=== PATIENT | male | born 1945 | race Caucasian/White ===

== ENCOUNTER 2020-09-23 15:37 | Emergency (ER) | payer MEDICARE, SELFPAY ==
[2020-09-23 15:43] VITALS: BP 148/78; PULSE 68; RESP 20; TEMP 36.4; O2SAT 99
[2020-09-23 16:17] LABS: Prothrombin Time 51.9 Seconds (11.1-14.7)
--- NOTE | 2020-09-23 16:18 | PC.NURSE ---
Called lab added on CBCD. Talked to Brandon
[2020-09-23 16:22] LABS: Basophils Percent Auto 0.4 % (0.2-1.2); Eosinophils Absolute Auto 0.1 K/mm3 (0-0.3); Eosinophils Percent Auto 1.2 % (0-4.4); Hematocrit 47.7 % (42.0-52.0); Immature Granulocyte Absolute 0.04 K/mm3 (0.00-0.031); Immature Granulocyte Percent A 0.5 % (0-0.5); Lymphocytes Absolute Auto 1.11 K/mm3 (0.9-3.2); Mean Corpuscular HGB Conc 33.5 g/dl (32-36); Mean Corpuscular Hemoglobin 31.1 pg (26-34); Mean Corpuscular Volume 92.8 fl (80-100); Mean Platelet Volume 11.3 fl (7.4-10.4); Monocytes Absolute Auto 0.7 K/mm3 (0.1-0.6); Monocytes Percent Auto 7.9 % (2.6-8.5); Neutrophils Absolute Auto 6.6 K/mm3 (1.3-6.7); Platelet Count Result 173 k/mm3 (150-375); Red Blood Count 5.14 M/mm3 (4.6-6.20); Red Cell Distribution Width 12.8 % (11.5-14.5); White Blood Count 8.5 K/mm3 (4.5-10.0)
[2020-09-23 16:25] LABS: INR 5.8
--- NOTE | 2020-09-23 16:44 | ED.RECABL ---
HPI - Recheck/Abnormal Lab/Rx General Chief Complaint: Recheck/Abnormal Lab/Rx Stated Complaint: Abnormal INR Time Seen by Provider: 09/23/20 15:59 Source: patient Mode of arrival: ambulatory Limitations: no limitations History of Present Illness HPI narrative: 75-year-old male Takes Coumadin for, it turns out, A. fib and is followed by a physician in [place] He had his INR checked as an outpatient a day ago and was notified today that the result was 8 It sounds like his doctor wanted him to take some oral vitamin K but for some reason he could not pick it up from [facility] so he told come to the emergency room He is not having any bleeding at all, apart from when he had his blood drawn Related Data Home Medications Medication Instructions Recorded Confirmed cholestyramine (with sugar) 4 gram PO 05/03/20 05/03/20 oral powder diltiazem HCl 120 mg 120 mg PO DAILY cap 05/03/20 05/03/20 capsule,extended release 12 hr esomeprazole magnesium 40 mg 40 mg PO DAILY 05/03/20 05/03/20 capsule,delayed release famotidine 20 mg tablet 20 mg PO BID tablet 05/03/20 05/03/20 lisinopril 20 1 tablet PO DAILY 05/03/20 05/03/20 mg-hydrochlorothiazide 25 mg tablet metoprolol succinate 100 mg 150 mg PO DAILY tablet 05/03/20 05/03/20 tablet,extended release 24 hr rosuvastatin 20 mg tablet 20 mg PO DAILY 05/03/20 05/03/20 Allergies Allergy/AdvReac Type Severity Reaction Status Date / Time No Known Allergies Allergy Verified 09/23/20 15:47 Review of Systems Constitutional: Constitutional: Denies fatigue and Denies weakness ENT: Denies dizziness Genitourinary: Genitourinary: Denies hematuria Hematologic/Lymphatic: Hematologic/Lymphatic: Reports easy bleeding and Reports easy bruising [facility] Past Medical History Medical History (Updated 09/23/20 @ 16:50 by Yovani Swain MD) Atrial fibrillation Gastroesophageal reflux disease Hyperlipidemia Hypertension Screening for colon cancer Surgical History Surgical History (Updated 05/03/20 @ 10:09 by NELSON Martinez) Hx of cholecystectomy Family History Family History (Updated 05/03/20 @ 12:07 by NELSON Martinez) Father , stroke, diabetes, heart problems Heart disease Social History Social History Smoking status: Former smoker Smoking end date: 04/22/89 Alcohol intake: current Drinks per week: 3 Substance use: never Exam Const: General: cooperative, no acute distress and alert Orientation/consciousness: patient oriented x3 (alert) HENMT: Head: normal to inspection, normocephalic and atraumatic Ears: external ears normal General nose exam: no epistaxis Eyes: Conjunctivae: conjunctivae normal EOM: EOMs intact bilaterally Neck: Neck: normal visual inspection, supple and no JVD Resp: Effort & Inspection: normal respiratory effort and not labored Auscultation: other (BS =) GI: GI Palp: Yes Soft to palpation and No Tenderness to palpation present (GI) Skin: General skin exam: normal color and no rashes or lesions noted Neuro: General: patient oriented x3 (alert) Speech: normal speech Psych: Affect: normal affect Course Vital Signs Vital signs: Vital Signs Temperature 36.4 C 09/23/20 15:43 Pulse Rate 68 09/23/20 15:43 Respiratory Rate 20 09/23/20 15:43 Blood Pressure 148/78 H 09/23/20 15:43 Pulse Oximetry 99 09/23/20 15:43 Temperature 36.4 C 09/23/20 15:43 Pulse Rate 68 09/23/20 15:43 Respiratory Rate 20 09/23/20 15:43 Blood Pressure 148/78 H 09/23/20 15:43 Pulse Oximetry 99 09/23/20 15:43 MDM - Recheck/Abnormal Lab/Rx Lab Data Result diagrams: 09/23/20 15:52 Labs: Lab Results 09/23/20 09/23/20 Range/Units 15:52 15:52 WBC 8.5 (4.5-10.0) K/mm3 RBC 5.14 (4.6-6.20) M/mm3 Hgb 16.0 (14.0-18.0) g/dL Hct 47.7 (42.0-52.0) % MCV 92.8 (80-100) fl MCH 31.1 (26-3
== END 2020-09-23 16:58 | disposition home or self-care (01) ==
PROVIDERS: Emergency Provider Emergency Medicine
DX: R79.1 Abnormal coagulation profile (principal); I48.91 Unspecified atrial fibrillation; Z79.01 Long term (current) use of anticoagulants; K21.9 Gastro-esophageal reflux disease without esophagitis; E78.5 Hyperlipidemia, unspecified; I10 Essential (primary) hypertension; Z87.891 Personal history of nicotine dependence
CPT/HCPCS: 36415; 85025; 85610; 99283

== ENCOUNTER 2021-01-26 19:51 | Emergency (ER) | payer MEDICARE, SELFPAY ==
[2021-01-26] VITALS (10 sets, daily range): BP systolic 141–176; BP diastolic 76–91; PULSE 74–108; RESP 16–20; TEMP 36.1; O2SAT 98–100
--- NOTE | ~2021-01-26 | CT_ITS ---
EXAMINATION: CT brain wo con EXAM DATE: 01/26/2021 21:22 INDICATION: Memory loss, confusion. TECHNIQUE: Spiral CT of the head was performed without contrast. Axial, coronal and sagittal images were reviewed. The dose-length product (DLP) for this examination was 605.33 mGy-cm. The exposure w as tailored according to patient size, and iterative reconstruction (ASIR) was used as additional dos e reduction technique. There is no prior study for comparison. FINDINGS: There is no acute intraparenchymal hemorrhage. No evidence of intraparenchymal brain mass lesion. No evidence of acute infarction. Please note that initial head CT has limited sensitivity f or small or acute infarctions. There is mild periventricular and subcortical hypodensity, nonspecific but probably related to small vessel ischemic disease. There is moderate prominence of the sulci a nd ventricles related to cerebral atrophy. There is intracranial carotid arteriosclerosis. There a re no extra-axial collections. There is no mass effect or midline shift. The orbits are unremarkabl e. Soft tissue is unremarkable. The visualized sinuses and mastoid air cells are well aerated. IMPRESSION: 1. No acute intracranial findings. 2. Chronic age related findings. Reviewed, dictated and finalized at location G.
--- NOTE | ~2021-01-26 | XR_ITS ---
EXAMINATION: XR chest 1V EXAM DATE: 01/26/2021 21:27 INDICATION: Transient alteration of awareness. TECHNIQUE: Frontal and lateral projections of the chest obtained and reviewed. There is no prior piedad dy for comparison. FINDINGS: Moderately enlarged rounded cardiac silhouette which could be cardiomegaly an/or pericardi al effusion. No confluent consolidation, pneumothorax or pleural effusion suspected. There are bony d egenerative changes. There is aortic arteriosclerosis. IMPRESSION: Moderately enlarged cardiac silhouette, cardiomegaly and/or pericardial effusion. Reviewed, dictated and finalized at location G. IMPRESSION: Moderately enlarged cardiac silhouette, cardiomegaly and/or perica rdial effusion.
--- NOTE | 2021-01-26 20:07 | ECG_ITS ---
Measurements Intervals [place] Rate: 100 P: MD: 0 QRS: 1 QRSD: 89 T: 7 QT: 327 QTc: 423 Interpretive Statements ATRIAL FIBRILLATION WITH RAPID VENTRICULAR RESPONSE DELAYED PRECORDIAL R/S TRANSITION BORDERLINE T WAVE ABNORMALITY- INFERIOR LEADS ABNORMAL ECG Electronically Signed On 01-27-2021 6:43:07 CDT by Castillo Guzman D.O.
[2021-01-26 20:40] LABS: Basophils Absolute Auto 0.1 K/mm3 (0.0-0.1); Basophils Percent Auto 0.6 % (0.2-1.2); Eosinophils Absolute Auto 0.1 K/mm3 (0-0.3); Eosinophils Percent Auto 0.7 % (0-4.4); Hematocrit 49.3 % (42.0-52.0); Hemoglobin 16.8 g/dL (14.0-18.0); Immature Granulocyte Absolute 0.02 K/mm3 (0.00-0.031); Immature Granulocyte Percent A 0.2 % (0-0.5); Lymphocytes Absolute Auto 1.29 K/mm3 (0.9-3.2); Lymphocytes Percent Auto 15.9 % (18.3-44.2); Mean Corpuscular HGB Conc 34.1 g/dl (32-36); Mean Corpuscular Hemoglobin 31.8 pg (26-34); Mean Corpuscular Volume 93.4 fl (80-100); Mean Platelet Volume 11.2 fl (7.4-10.4); Monocytes Absolute Auto 0.5 K/mm3 (0.1-0.6); Monocytes Percent Auto 6.7 % (2.6-8.5); Neutrophils Absolute Auto 6.1 K/mm3 (1.3-6.7); Neutrophils Percent Auto 75.9 % (45.5-73.1); Platelet Count Result 190 k/mm3 (150-375); Red Blood Count 5.28 M/mm3 (4.6-6.20); Red Cell Distribution Width 12.8 % (11.5-14.5); White Blood Count 8.1 K/mm3 (4.5-10.0)
[2021-01-26 20:42] LABS: Alanine Aminotransferase 28 U/L (4-50); Albumin Level 4.3 g/dL (3.5-5.1); Alkaline Phosphatase 74 U/L (38-126); Anion Gap 9 mmol/L (8-16); Aspartate Amino Transferase 30 U/L (17-59); Bilirubin,Total 2.8 mg/dL (0.2-1.3); Blood Urea Nitrogen 20 mg/dL (9-20); Calcium 9.3 mg/dL (8.4-10.2); Carbon Dioxide 28 mmol/L (22-30); Chloride 101 mmol/L (98-107); Estimated CRCL calculation 61 ml/min; Estimated Glomerular Filt Rate 54; Glucose 173 mg/dL (65-110); Potassium 3.7 mmol/L (3.4-5.0); Sodium 138 mmol/L (137-145)
[2021-01-26 22:08] LABS: Acetaminophen < 10 ug/mL (10-30); Ammonia 16 umol/L (9-30); Ethanol < 10 mg/dL (<10); Salicylate < 1.0 mg/dL (2-20)
[2021-01-26 22:09] LABS: Add Urine Microscopic? YES; Appearance Urine Clear (Clear); Bilirubin Urine Negative (Negative); Blood Urine Negative (Negative); Color Urine Yellow (Yellow); Glucose Urine UA Negative (Negative); Ketones Urine Negative (Negative); Leukocyte Esterase Ur Negative LEU/UL (Negative); Mucus Urine Rare /lpf; Nitrate Urine Negative (Negative); Protein Urine Negative (Negative); RBC Urine 0-2 /hpf (0-2); Specific Grav Ur 1.014 (1.001-1.035); WBC Urine 0-3 /hpf
--- NOTE | 2021-01-26 22:23 | ED.AMS ---
HPI - Altered Mental Status General Chief Complaint: Altered Mental Status Stated Complaint: confusion, delusional Time Seen by Provider: 01/26/21 20:49 Source: patient History of Present Illness HPI narrative: Patient presents with confusion. Patient has a history of dementia left the house got lost driving around and was pulled over by law enforcement he stated his son was in the trunk. This was a severe amount of confusion for him per the family so was brought to the ER for evaluation. Patient does admit to getting confused periodically and notes that is why he is here at the hospital reports he is feeling well now he denies any focal areas of pain such as chest pain or abdominal pain. Denies any fevers, cough, congestion. Denies any focal weakness or numbness Related Data Home Medications Medication Instructions Recorded Confirmed diltiazem HCl 120 mg 120 mg PO DAILY cap 05/03/20 11/07/20 capsule,extended release 12 hr famotidine 20 mg tablet 20 mg PO BID tablet 05/03/20 11/07/20 lisinopril 20 1 tablet PO DAILY 05/03/20 11/07/20 mg-hydrochlorothiazide 25 mg tablet metoprolol succinate 100 mg 150 mg PO DAILY tablet 05/03/20 11/07/20 tablet,extended release 24 hr rosuvastatin 20 mg tablet 20 mg PO DAILY 05/03/20 11/07/20 colchicine 0.6 mg capsule 0.6 mg PO DAILY 11/07/20 11/07/20 Allergies Allergy/AdvReac Type Severity Reaction Status Date / Time No Known Allergies Allergy Verified 01/26/21 21:17 Review of Systems Review of Systems: CONSTITUTIONAL: Denies fever, chills, or sweats. EYES: Denies visual changes, redness, or discharge. ENT: Denies rhinorrhea, congestion, sore throat, or otalgia. CARDIOVASCULAR: Denies chest pain, palpitations, or edema. RESPIRATORY: Denies cough or dyspnea. GASTROINTESTINAL: Denies abdominal pain, nausea, vomiting, or diarrhea. GENITOURINARY: Denies dysuria or hematuria. SKIN: Denies rash or itching. MUSCULOSKELETAL: Denies back pain, joint pain, or myalgia. NEUROLOGIC: Denies headache, numbness, dizziness, or weakness. PSYCHIATRIC: Denies anxiety or depression. All systems reviewed & are unremarkable except as noted in HPI and below PMFSH Past Medical History Medical History Atrial fibrillation Gastroesophageal reflux disease Hyperlipidemia Hypertension Screening for colon cancer Surgical History Surgical History Hx of cholecystectomy Family History Family History Father , stroke, diabetes, heart problems Heart disease Social History Social History Smoking status: Former smoker Smoking end date: 04/22/89 Alcohol intake: current Drinks per week: 3 Alcohol use details: beer Substance use: never Exam Narrative: GENERAL: Well-appearing, well-nourished, and in no acute distress. HEAD: Normocephalic, atraumatic. EYES: PERRLA and EOMI. ENT: Nares clear, no rhinorrhea or epistaxis. Mucous membranes moist. NECK: Supple. No masses. No JVD CHEST: Clear to auscultation. No respiratory distress. No wheezes rales or rhonchi HEART: Regular rate and rhythm. No murmur heard. Normal peripheral pulses. ABDOMEN: Soft, nontender, nondistended, normal active bowel sounds. EXTREMITIES: Normal range of motion. No edema. SKIN: Warm, dry, no rash. NEURO: Cranial nerves II through XII are intact patient has 5 out of 5 strength in all extremities, sensation intact to light touch in all extremities alert and oriented x3. PSYCH: Normal mood and affect. Course Reevaluation(s) Reevaluation #1: Patient resting comfortably is alert and oriented results and plan reviewed with patient and family. With a negative work-up patient is made line mental status family is comfortable with outpatient monitoring. Family plans to call memory center at
[2021-01-26] MEDS: SODIUM CHLORIDE 0.9% IV 500 ML 999 ML IV CONT (22:51)
== END 2021-01-26 23:33 | disposition home or self-care (01) ==
PROVIDERS: Emergency Medicine; Emergency Provider Emergency Medicine; PCP Internal Medicine
DX: F03.90 Unspecified dementia, unspecified severity, without behavioral disturbance, psychotic disturbance, mood disturbance, and anxiety (principal); F05 Delirium due to known physiological condition; I48.91 Unspecified atrial fibrillation; E78.5 Hyperlipidemia, unspecified; I10 Essential (primary) hypertension; K21.9 Gastro-esophageal reflux disease without esophagitis; Z87.891 Personal history of nicotine dependence; R94.31 Abnormal electrocardiogram [ECG] [EKG]; R91.8 Other nonspecific abnormal finding of lung field; Z79.899 Other long term (current) drug therapy
CPT/HCPCS: 36415; 70450; 71045; 80053; 80307; 81001; 82140; 85025; 93005; 96360; 99284; J7040

== ENCOUNTER 2021-03-15 07:00 | Emergency (ER) | payer MEDICARE, SELFPAY ==
--- NOTE | ~2021-03-15 | XR_ITS ---
EXAMINATION: XR foot RT min 3V EXAM DATE: 03/15/2021 07:40 INDICATION: fall, twisted foot in mole hole, pain radiates whole foot . TECHNIQUE: Right foot dorsoplantar, lateral and oblique projections obtained and reviewed. There is no prior study for comparison. FINDINGS: Right metatarsal bones unremarkable. There is an old 5th proximal phalangeal shaft fractu re. There are no acute fractures or dislocations identified. There is no subcutaneous gas. The soft tissue is unremarkable. There are no radiopaque foreign bodies. There is an inferior calcaneal sp ur. IMPRESSION: 1. Right foot exam without acute osseous findings. Reviewed, dictated and finalized at location A. 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
[2021-03-15 07:18] VITALS: BP 141/71; PULSE 67; RESP 18; TEMP 36.8; O2SAT 100
[2021-03-15 07:28] VITALS: BP 141/71; PULSE 74; RESP 18; TEMP 36.8; O2SAT 100
--- NOTE | 2021-03-15 07:53 | ED.LOWEXIN ---
HPI - Extremity Injury (Lower) General Chief Complaint: Extremity Injury, Lower Stated Complaint: right foot pain, gout? Time Seen by Provider: 03/15/21 07:04 Source: RN notes reviewed History of Present Illness HPI Narrative: Patient presents emergency department from home for right foot pain. Patient states pain began approximately 5 days ago. States that time he had been walking when he twisted his right foot and having pain in the dorsal lateral aspect of the foot since that time he denies falling or any other injury states pain is worse when he walks on the foot better with rest he has been using 1 crutch to help him walk he denies any ankle pain or leg pain states has been taking nothing for the pain states he does have a history of gout Related Data Home Medications Medication Instructions Recorded Confirmed diltiazem HCl 120 mg 120 mg PO DAILY cap 05/03/20 01/30/21 capsule,extended release 12 hr lisinopril 20 1 tablet PO DAILY 05/03/20 01/30/21 mg-hydrochlorothiazide 25 mg tablet metoprolol succinate 100 mg 150 mg PO DAILY tablet 05/03/20 01/30/21 tablet,extended release 24 hr rosuvastatin 20 mg tablet 20 mg PO DAILY 05/03/20 01/30/21 colchicine 0.6 mg capsule 0.6 mg PO DAILY 11/07/20 01/30/21 famotidine 20 mg tablet 40 mg PO ONCE tablet 01/30/21 01/30/21 Allergies Allergy/AdvReac Type Severity Reaction Status Date / Time No Known Allergies Allergy Verified 01/30/21 09:37 Review of Systems Review of Systems: Gen.: Denies fevers or chills Musculoskeletal: See HPI Neuro: Denies numbness, tingling, weakness Skin: Denies rash Endo: Denies DM COUNTS INCLUDE 234 BEDS AT THE [facility] Past Medical History Medical History (Updated 03/15/21 @ 07:56 by Glenn Salmeron DO) Atrial fibrillation Gastroesophageal reflux disease Gout Hyperlipidemia Hypertension Screening for colon cancer Surgical History Surgical History Hx of cholecystectomy Family History Family History Father , stroke, diabetes, heart problems Heart disease Social History Social History Smoking status: Former smoker Smoking end date: 04/22/89 Alcohol intake: current Drinks per week: 3 Alcohol use details: beer Substance use: never Exam Narrative: APPEARANCE: No acute distress, nontoxic, resting in bed Eyes: EOMI HEENT: Normocephalic, atraumatic, RESPIRATORY: No respiratory distress MUSCULOSKELETAl: Tender palpation over dorsal lateral foot in the region of the fourth and fifth metatarsal with mild swelling and ecchymosis present there is no tenderness of the medial or lateral malleolus or the proximal fibula dorsalis pedis pulse 2+ neurovascular intact NEURO: Awake and alert. Following commands, speech normal, no focal deficits SKIN:: Warm, dry. Normal Color no rash or lesions Course Course Emergency Course: Discussed with patient results of workup and diagnosis. Discussed need for follow-up with primary care, proper use of medication, and reasons to return to the emergency department. Patient understands and agrees to current treatment plan Vital Signs Vital signs: Vital Signs Temperature 98.2 F 03/15/21 07:18 Pulse Rate 67 03/15/21 07:18 Respiratory Rate 18 03/15/21 07:18 Blood Pressure 141/71 H 03/15/21 07:18 Pulse Oximetry 100 03/15/21 07:18 Temperature 98.2 F 03/15/21 07:28 Pulse Rate 74 03/15/21 07:28 Respiratory Rate 18 03/15/21 07:28 Blood Pressure 141/71 H 03/15/21 07:28 Pulse Oximetry 100 03/15/21 07:28 MDM - Extremity Injury (Lower) MDM Narrative Medical decision making narrative: Patient with pain over dorsal lateral foot does have a history of gout but at this time feel this more likely related to a foot sprain from him twisting his foot as the pain began after that will place in postop shoe with short cour
[2021-03-15] MEDS: NAPROXEN 250 MG TABLET PO (08:32)
[2021-03-15 08:50] VITALS: BP 150/76; PULSE 81; RESP 16; O2SAT 100
== END 2021-03-15 08:50 | disposition home or self-care (01) ==
PROVIDERS: Emergency Provider Emergency Medicine
DX: S93.601A Unspecified sprain of right foot, initial encounter (principal); I48.91 Unspecified atrial fibrillation; E78.5 Hyperlipidemia, unspecified; I10 Essential (primary) hypertension; K21.9 Gastro-esophageal reflux disease without esophagitis; M10.9 Gout, unspecified; Z87.891 Personal history of nicotine dependence; X50.9XXA Other and unspecified overexertion or strenuous movements or postures, initial encounter
CPT/HCPCS: 73630; 99283; A9270

== ENCOUNTER → 2021-05-18 08:43 | Outpatient (CLI) | payer MEDICARE, SELFPAY ==
[2021-05-18 14:29] LABS: Influenza A QL RT-PCR Negative (Negative); Influenza B QL RT-PCR Negative (Negative); SARS-CoV-2 RNA PCR Negative
== END ==
PROVIDERS: Visit Provider Nurse Practitioner
DX: R09.89 Other specified symptoms and signs involving the circulatory and respiratory systems (principal); Z20.822 Contact with and (suspected) exposure to COVID-19
CPT/HCPCS: 87502; C9803; U0003; U0005

== ENCOUNTER 2021-10-26 09:27 | Emergency (ER) | payer MEDICARE, SELFPAY ==
[2021-10-26] VITALS (11 sets, daily range): BP systolic 132–151; BP diastolic 73–85; PULSE 51–64; RESP 15–18; TEMP 36.8; O2SAT 93–100
--- NOTE | 2021-10-26 09:41 | ED.GENADULT ---
HPI - General Adult General Chief complaint: Recheck/Abnormal Lab/Rx Stated complaint: abnormal lab Time Seen by Provider: 10/26/21 09:36 History of Present Illness HPI narrative: 76-year-old male presents emergency room states he was told to come to the emergency room to have lab rechecked. Patient has been on Coumadin for the past 5 years secondary to chronic atrial fibrillation. He had a PT/INR checked yesterday was noted to be elevated at 8. States he never had that high. He has not had any blood in his stool or urine. He does bleed pretty easily but that is pretty common for him. Denies any other complaints at this time. States he has been taking his medication as prescribed. Related Data Home Medications Medication Instructions Recorded Confirmed diltiazem HCl 120 mg 120 mg PO DAILY 05/03/20 05/31/21 capsule,extended release 12 hr lisinopril 20 1 tablet PO DAILY 05/03/20 05/31/21 mg-hydrochlorothiazide 25 mg tablet metoprolol succinate 100 mg 150 mg PO DAILY 05/03/20 05/31/21 tablet,extended release 24 hr esomeprazole magnesium 40 mg 40 mg PO DAILY 04/04/21 05/31/21 capsule,delayed release rosuvastatin 20 mg tablet 20 mg PO DAILY 04/04/21 05/31/21 warfarin 5 mg tablet 4 mg PO DAILY 04/04/21 05/31/21 Allergies Allergy/AdvReac Type Severity Reaction Status Date / Time No Known Allergies Allergy Verified 05/31/21 14:15 Review of Systems Review of Systems: CONSTITUTIONAL: Denies fever, chills, or sweats. EYES: Denies visual changes, redness, or discharge. ENT: Denies rhinorrhea, congestion, sore throat, or otalgia. CARDIOVASCULAR: Denies chest pain, palpitations, or edema. RESPIRATORY: Denies cough or dyspnea. GASTROINTESTINAL: Denies abdominal pain, nausea, vomiting, or diarrhea. GENITOURINARY: Denies dysuria or hematuria. SKIN: Denies rash or itching. MUSCULOSKELETAL: Denies back pain, joint pain, or myalgia. NEUROLOGIC: Denies headache, numbness, or weakness. PSYCHIATRIC: Denies anxiety or depression. [facility] Past Medical History Medical History Atrial fibrillation Gastroesophageal reflux disease Gout Hyperlipidemia Hypertension Screening for colon cancer Surgical History Surgical History Hx of cholecystectomy Family History Family History Father , stroke, diabetes, heart problems Heart disease Social History Social History Smoking packs per day: 1 Smoking cigarettes per day: 20.0 Years smoked: 14 Smoking pack-years: 14.00 Smoking status: Former smoker Tobacco type: cigarettes Second hand tobacco smoke exposure: No Smoking end date: 04/22/89 Alcohol intake: current Drinks per week: 3 Alcohol use details: beer Substance use: never Substance use type: does not use Exam Narrative: APPEARANCE: Well appearing, no pain or distress, well-nourished. Head normocephalic and atraumatic. EYES: PERRLA/EOMI, conjunctivae very clear. NOSE: Normal with no drainage EARS:TMS clear Debby Giron, with good light reflex. THROAT: Pharynx clear, no exudate. NECK: Supple. No adenopathy, no masses. RESPIRATORY: Airway patent, respirations nonlabored. Clear to auscultation bilaterally, no rales, rhonchi, wheezing. CARDIOVASCULAR: Irregular rhythm with grade 3/6 systolic ejection murmur, rubs, or gallops. ABDOMINAL: Soft, nontender, nondistended, no hepatosplenomegaly Musculoskeletal: Moves all extremities. Strength/ROM intact, No edema, No calf tenderness. NEURO: Alert. Cranial nerves II through XII intact. Normal gait. Good coordination. Nonfocal examination. SKIN:: Warm, dry. Normal Color. Diffuse mild bruising PSYCHIATRIC: Normal affect/mood, normal interaction Course Vital Signs Vital signs: Vital Signs Pulse Rate 64 10/26/21 09:29 Resp
[2021-10-26 10:07] LABS: Basophils Absolute Auto 0.1 K/mm3 (0.0-0.1); Basophils Percent Auto 0.7 % (0.2-1.2); Eosinophils Absolute Auto 0.1 K/mm3 (0-0.3); Eosinophils Percent Auto 0.8 % (0-4.4); Hematocrit 47.5 % (42.0-52.0); Hemoglobin 15.6 g/dL (14.0-18.0); Immature Granulocyte Absolute 0.04 K/mm3 (0.00-0.031); Immature Granulocyte Percent A 0.4 % (0-0.5); Lymphocytes Absolute Auto 1.36 K/mm3 (0.9-3.2); Lymphocytes Percent Auto 13.6 % (18.3-44.2); Mean Corpuscular HGB Conc 32.8 g/dl (32-36); Mean Corpuscular Hemoglobin 30.2 pg (26-34); Mean Corpuscular Volume 92.1 fl (80-100); Mean Platelet Volume 11.5 fl (7.4-10.4); Monocytes Absolute Auto 0.9 K/mm3 (0.1-0.6); Neutrophils Absolute Auto 7.6 K/mm3 (1.3-6.7); Neutrophils Percent Auto 75.5 % (45.5-73.1); Platelet Count Result 200 k/mm3 (150-375); Red Blood Count 5.16 M/mm3 (4.6-6.20)
[2021-10-26 10:11] LABS: Prothrombin Time 61.8 Seconds (11.1-14.7)
[2021-10-26 10:12] LABS: Partial Thromboplastin Time 75.7 SECONDS (22.3-36.8)
[2021-10-26 10:34] LABS: INR 7.5
[2021-10-26] MEDS: PHYTONADIONE 5 MG TABLET PO (11:02)
[2021-10-26 11:05] LABS: Anion Gap 4 mmol/L (8-16); Blood Urea Nitrogen 20 mg/dL (9-20); Calcium 8.7 mg/dL (8.4-10.2); Carbon Dioxide 28 mmol/L (22-30); Chloride 102 mmol/L (98-107); Estimated CRCL calculation 62 ml/min; Estimated Glomerular Filt Rate > 60; Glucose 98 mg/dL (65-110); Potassium 4.1 mmol/L (3.4-5.0); Sodium 134 mmol/L (137-145)
== END 2021-10-26 11:35 | disposition home or self-care (01) ==
PROVIDERS: Emergency Provider Emergency Medicine
DX: I48.20 Chronic atrial fibrillation, unspecified (principal); R79.1 Abnormal coagulation profile; E78.5 Hyperlipidemia, unspecified; I10 Essential (primary) hypertension; M10.9 Gout, unspecified; K21.9 Gastro-esophageal reflux disease without esophagitis; Z87.891 Personal history of nicotine dependence
CPT/HCPCS: 36415; 80048; 85025; 85610; 85730; 99283; A9270

== ENCOUNTER 2022-04-04 17:57 | Emergency (ER) | payer MEDICARE, SELFPAY ==
[2022-04-04 19:28] VITALS: BP 169/97; PULSE 77; RESP 18; TEMP 36.6; O2SAT 100
[2022-04-04 19:50] LABS: Basophils Percent Auto 0.5 % (0.2-1.2); Eosinophils Absolute Auto 0.1 K/mm3 (0-0.3); Eosinophils Percent Auto 1.1 % (0-4.4); Hematocrit 46.8 % (42.0-52.0); Hemoglobin 15.2 g/dL (14.0-18.0); Immature Granulocyte Absolute 0.03 K/mm3 (0.00-0.031); Immature Granulocyte Percent A 0.4 % (0-0.5); Lymphocytes Absolute Auto 1.13 K/mm3 (0.9-3.2); Lymphocytes Percent Auto 15.5 % (18.3-44.2); Mean Corpuscular HGB Conc 32.5 g/dl (32-36); Mean Corpuscular Volume 92.3 fl (80-100); Mean Platelet Volume 11.3 fl (7.4-10.4); Monocytes Absolute Auto 0.6 K/mm3 (0.1-0.6); Monocytes Percent Auto 8.4 % (2.6-8.5); Neutrophils Absolute Auto 5.4 K/mm3 (1.3-6.7); Neutrophils Percent Auto 74.1 % (45.5-73.1); Platelet Count Result 180 k/mm3 (150-375); Red Blood Count 5.07 M/mm3 (4.6-6.20); Red Cell Distribution Width 13.2 % (11.5-14.5); White Blood Count 7.3 K/mm3 (4.5-10.0)
[2022-04-04 20:03] LABS: Alanine Aminotransferase 44 U/L (6-50); Albumin Level 4.1 g/dL (3.5-5.1); Alkaline Phosphatase 97 U/L (38-126); Anion Gap 7 mmol/L (8-16); Aspartate Amino Transferase 39 U/L (17-59); Bilirubin,Total 1.9 mg/dL (0.2-1.3); Blood Urea Nitrogen 18 mg/dL (9-20); Calcium 8.7 mg/dL (8.4-10.2); Carbon Dioxide 23 mmol/L (22-30); Chloride 108 mmol/L (98-107); Estimated CRCL calculation 76 ml/min; Estimated Glomerular Filt Rate > 60; Glucose 110 mg/dL (65-110); Sodium 138 mmol/L (137-145)
[2022-04-04 20:05] LABS: Partial Thromboplastin Time 68.4 SECONDS (22.3-36.8)
[2022-04-04 20:19] LABS: Prothrombin Time 68.4 Seconds (11.1-14.7)
[2022-04-04 20:24] LABS: INR 8.6
--- NOTE | 2022-04-04 22:14 | ED.RECABL ---
HPI - Recheck/Abnormal Lab/Rx General Chief Complaint: Recheck/Abnormal Lab/Rx Stated Complaint: high inr Time Seen by Provider: 04/04/22 21:52 History of Present Illness HPI narrative: This is a 76-year-old male with past medical history of A. fib on Coumadin, referred to the emergency department for an elevated INR. Patient denies any recent injuries, headache, weakness, numbness or change/loss of vision/hearing. He states he takes 5 to 8 mg of Coumadin as needed by his INR. She states he had a recent elevated INR and withheld his Coumadin yesterday. He has no other complaints today. Related Data Home Medications Medication Instructions Recorded Confirmed esomeprazole magnesium 40 mg 40 mg PO DAILY 04/04/21 03/20/22 capsule,delayed release warfarin 5 mg tablet 5 mg PO DAILY 11/02/21 03/20/22 diltiazem HCl 120 mg capsule,24 120 mg PO DAILY 03/23/22 hr,extended release Allergies Allergy/AdvReac Type Severity Reaction Status Date / Time No Known Allergies Allergy Verified 03/20/22 09:14 Review of Systems Review of Systems: CONSTITUTIONAL: Denies fever, chills, or sweats. EYES: Denies visual changes, redness, or discharge. ENT: Denies rhinorrhea, congestion, sore throat, or otalgia. CARDIOVASCULAR: Denies chest pain, palpitations, or edema. RESPIRATORY: Denies cough or dyspnea. GASTROINTESTINAL: Denies abdominal pain, nausea, vomiting, or diarrhea. GENITOURINARY: Denies dysuria or hematuria. SKIN: Denies rash or itching. MUSCULOSKELETAL: Denies back pain, joint pain, or myalgia. NEUROLOGIC: Denies headache, numbness, dizziness, or weakness. PSYCHIATRIC: Denies anxiety or depression. [facility] Past Medical History Medical History Atrial fibrillation Gastroesophageal reflux disease Gout Hyperlipidemia Hypertension Screening for colon cancer Surgical History Surgical History Hx of cholecystectomy Family History Family History Father , stroke, diabetes, heart problems Heart disease Social History Social History Smoking packs per day: 1 Smoking cigarettes per day: 20.0 Years smoked: 14 Smoking pack-years: 14.00 Smoking status: Former smoker Tobacco type: cigarettes Second hand tobacco smoke exposure: No Smoking end date: 04/22/89 Alcohol intake: current Drinks per week: 3 Alcohol use details: beer Substance use: never Substance use type: does not use Lack of Transportation: No Lack of Food: Never True Current Housing: I Have Housing Concerned About Future Housing: No Difficulty Paying Gas/Electric Bills: No Difficulty Paying for Meds: No Currently Unemployed: No Education: Bachelor's Degree Difficulty w/ Childcare or Family Care: No Exam Narrative: GENERAL: Well-developed, well-nourished, and in no acute distress. HEAD: Normocephalic, atraumatic. EYES: PERRLA and EOMI. ENT: Nares clear, no rhinorrhea or epistaxis. Mucous membranes moist. Oropharynx without tonsillar hypertrophy exudate or other lesions. NECK: Supple. No adenopathy or masses. No carotid bruits or JVD CHEST: Clear to auscultation. No respiratory distress. No wheezes rales or rhonchi HEART: Regular rate and rhythm. No murmur heard. Normal peripheral pulses. ABDOMEN: Soft, nontender, nondistended, normal active bowel sounds. EXTREMITIES: Normal range of motion. Bilateral lower extremity edema, 2+ SKIN: Warm, dry, no rash. NEURO: No focal deficits. Alert and oriented x3. PSYCH: Normal mood and affect. Course Course Emergency Course: 22:16 - CBC unremarkable with platelet count within normal limits and hemoglobin of 15.2 which appears to be the patient's baseline. Chemistries remarkable for a total bili of 1.9 but are otherwise unremarkable. [place]
[2022-04-04 22:38] VITALS: BP 145/90; PULSE 60; RESP 18; O2SAT 97
== END 2022-04-04 22:40 | disposition home or self-care (01) ==
PROVIDERS: Emergency Medicine; Emergency Provider Preventive Medicine Aerospace Medicine
DX: R79.1 Abnormal coagulation profile (principal); I48.91 Unspecified atrial fibrillation; I10 Essential (primary) hypertension; E78.5 Hyperlipidemia, unspecified; K21.9 Gastro-esophageal reflux disease without esophagitis; M10.9 Gout, unspecified; Z79.01 Long term (current) use of anticoagulants; Z87.891 Personal history of nicotine dependence
CPT/HCPCS: 36415; 80053; 85025; 85610; 85730; 99283

== ENCOUNTER 2022-04-05 17:43 | Emergency (ER) | payer MEDICARE, SELFPAY ==
--- NOTE | ~2022-04-05 | XR_ITS ---
EXAMINATION: XR chest 1V portable DATE: 04/06/2022 00:57 INDICATION: Cough. TECHNIQUE: A single frontal view of the chest was obtained. COMPARISON: Chest one view 01/26/2021 FINDINGS: There is no pneumonia, pleural effusion, or pneumothorax. Cardiomegaly is noted. IMPRESSION: 1. Cardiomegaly. Reviewed, dictated and finalized at location A. STIGATIONS CHIEF IMPRESSION: 1. Cardiomegaly.
[2022-04-05 18:31] VITALS: BP 175/87; PULSE 68; RESP 18; TEMP 36.4; O2SAT 99
[2022-04-05 22:41] LABS: Basophils Absolute Auto 0.1 K/mm3 (0.0-0.1); Basophils Percent Auto 0.6 % (0.2-1.2); Eosinophils Absolute Auto 0.1 K/mm3 (0-0.3); Eosinophils Percent Auto 1.7 % (0-4.4); Hematocrit 47.3 % (42.0-52.0); Hemoglobin 15.6 g/dL (14.0-18.0); Immature Granulocyte Absolute 0.03 K/mm3 (0.00-0.031); Immature Granulocyte Percent A 0.4 % (0-0.5); Lymphocytes Absolute Auto 1.19 K/mm3 (0.9-3.2); Lymphocytes Percent Auto 15.4 % (18.3-44.2); Mean Corpuscular Hemoglobin 29.8 pg (26-34); Mean Corpuscular Volume 90.3 fl (80-100); Mean Platelet Volume 11.8 fl (7.4-10.4); Monocytes Absolute Auto 0.6 K/mm3 (0.1-0.6); Monocytes Percent Auto 7.2 % (2.6-8.5); Neutrophils Absolute Auto 5.8 K/mm3 (1.3-6.7); Neutrophils Percent Auto 74.7 % (45.5-73.1); Platelet Count Result 188 k/mm3 (150-375); Red Blood Count 5.24 M/mm3 (4.6-6.20); Red Cell Distribution Width 12.9 % (11.5-14.5); White Blood Count 7.7 K/mm3 (4.5-10.0)
[2022-04-05 22:53] LABS: Alanine Aminotransferase 43 U/L (6-50); Alkaline Phosphatase 99 U/L (38-126); Anion Gap 6 mmol/L (8-16); Aspartate Amino Transferase 41 U/L (17-59); Bilirubin,Total 1.9 mg/dL (0.2-1.3); Blood Urea Nitrogen 16 mg/dL (9-20); Calcium 8.7 mg/dL (8.4-10.2); Carbon Dioxide 25 mmol/L (22-30); Chloride 105 mmol/L (98-107); Estimated CRCL calculation 75 ml/min; Estimated Glomerular Filt Rate > 60; Glucose 93 mg/dL (65-110); Potassium 4.3 mmol/L (3.4-5.0); Sodium 136 mmol/L (137-145)
[2022-04-05 23:02] LABS: Troponin I < 0.012 ng/mL (0.000-0.034)
[2022-04-05 23:08] VITALS: BP 161/117; PULSE 88; RESP 16; O2SAT 98
[2022-04-05 23:13] VITALS: O2SAT 97
[2022-04-05 23:15] VITALS: O2SAT 98
[2022-04-05 23:17] VITALS: BP 160/108; PULSE 87; RESP 16; O2SAT 100
[2022-04-05 23:20] VITALS: O2SAT 96
[2022-04-06 00:12] VITALS: O2SAT 100
[2022-04-06 00:26] VITALS: O2SAT 94
[2022-04-06 00:33] VITALS: BP 158/105; PULSE 78; RESP 18; O2SAT 99
[2022-04-06 00:40] LABS: NT Pro B Type Natriuretic Pept 2430 pg/mL (5-100)
--- NOTE | 2022-04-06 00:59 | ED.GENADULT ---
HPI - General Adult General Chief complaint: Skin/Abscess/Foreign Body Stated complaint: was seen last night-legs leaking fluid Time Seen by Provider: 04/05/22 22:52 Source: patient Mode of arrival: ambulatory Limitations: no limitations History of Present Illness HPI narrative: 76-year-old male presents today with complaints of right lower extremity swelling with weeping. Patient seen here yesterday for same complaint with also an elevated INR. Patient denies any chest pain, shortness of breath, falls, or known injuries to the right lower extremity. Patient stated he noticed the swelling about 4 days ago. Related Data Home Medications Medication Instructions Recorded Confirmed esomeprazole magnesium 40 mg 40 mg PO DAILY 04/04/21 03/20/22 capsule,delayed release warfarin 5 mg tablet 5 mg PO DAILY 11/02/21 03/20/22 diltiazem HCl 120 mg capsule,24 120 mg PO DAILY 03/23/22 hr,extended release Allergies Allergy/AdvReac Type Severity Reaction Status Date / Time No Known Allergies Allergy Verified 03/20/22 09:14 Review of Systems Review of Systems: CONSTITUTIONAL: Denies fever, chills, or sweats. EYES: Denies visual changes, redness, or discharge. CARDIOVASCULAR: Denies chest pain, palpitations, or edema. Bilateral lower extremity edema right greater than left with weeping from the right leg. RESPIRATORY: Denies cough or dyspnea. GASTROINTESTINAL: Denies abdominal pain, nausea, vomiting, or diarrhea. SKIN: Abrasions to right leg that are weeping. Denies rash or itching. MUSCULOSKELETAL: Denies back pain, joint pain, or myalgia. [facility] Past Medical History Medical History Atrial fibrillation Gastroesophageal reflux disease Gout Hyperlipidemia Hypertension Screening for colon cancer Surgical History Surgical History Hx of cholecystectomy Family History Family History Father , stroke, diabetes, heart problems Heart disease Social History Social History Smoking packs per day: 1 Smoking cigarettes per day: 20.0 Years smoked: 14 Smoking pack-years: 14.00 Smoking status: Former smoker Tobacco type: cigarettes Second hand tobacco smoke exposure: No Smoking end date: 04/22/89 Alcohol intake: current Drinks per week: 3 Alcohol use details: beer Substance use: never Substance use type: does not use Lack of Transportation: No Lack of Food: Never True Current Housing: I Have Housing Concerned About Future Housing: No Difficulty Paying Gas/Electric Bills: No Difficulty Paying for Meds: No Currently Unemployed: No Education: Bachelor's Degree Difficulty w/ Childcare or Family Care: No Exam Narrative: GENERAL: Well-appearing, well-nourished, and in no acute distress. HEAD: Normocephalic, atraumatic. EYES: PERRLA and EOMI. NECK: Supple. No adenopathy or masses. No carotid bruits or JVD CHEST: Clear to auscultation. No respiratory distress. No wheezes rales or rhonchi HEART: Bilateral lower extremity edema right greater than left. Right +2-3 edema with weeping noted from abrasions to the leg. Left leg +1. Regular rate and rhythm. No murmur heard. Normal peripheral pulses. ABDOMEN: Soft, nontender, nondistended, normal active bowel sounds. SKIN: Warm, dry, no rash. Course Vital Signs Vital signs: Vital Signs Temperature 97.5 F L 04/05/22 18:31 Pulse Rate 68 04/05/22 18:31 Respiratory Rate 18 04/05/22 18:31 Blood Pressure 175/87 H 04/05/22 18:31 Pulse Oximetry 99 04/05/22 18:31 Temperature 97.5 F L 04/05/22 18:31 Pulse Rate 78 04/06/22 00:33 Respiratory Rate 18 04/06/22 00:33 Blood Pressure 158/105 H 04/06/22 00:33 Pulse Oximetry 99 04/06/22 00:33 Medical Decision Making NELI Ruiz
[2022-04-06 02:18] LABS: INR 8.3
[2022-04-06] MEDS: PHYTONADIONE 2.5 MG TAB PO (03:02)
== END 2022-04-06 03:09 | disposition home or self-care (01) ==
PROVIDERS: Family Medicine; Emergency Provider Nurse Practitioner Family
DX: R60.0 Localized edema (principal); R79.1 Abnormal coagulation profile; I48.91 Unspecified atrial fibrillation; I10 Essential (primary) hypertension; E78.5 Hyperlipidemia, unspecified; K21.9 Gastro-esophageal reflux disease without esophagitis; M10.9 Gout, unspecified; Z87.891 Personal history of nicotine dependence; Z79.01 Long term (current) use of anticoagulants
CPT/HCPCS: 36415; 71045; 80053; 83880; 84484; 85025; 85610; 99284; A9270

== ENCOUNTER 2022-04-19 11:56 | Outpatient (CLI) | payer MEDICARE, SELFPAY ==
--- NOTE | ~2022-04-19 | US_ITS ---
EXAMINATION: US venous doppler [facility] DATE: 04/19/2022 13:05 INDICATION: Lower limb swelling TECHNIQUE: Grayscale ultrasound images without and with compression and Doppler ultrasound images of the bilateral lower extremity veins were obtained. COMPARISON: None. FINDINGS: The visualized portions of right common femoral vein, profunda (deep) femoral vein, femoral vein, pop liteal vein, posterior tibial veins, peroneal veins, gastrocnemius vein and greater saphenous vein ou tflow are patent. The visualized portions of left common femoral vein, profunda femoral vein, femoral vein, popliteal v ein, posterior tibial veins, peroneal veins, gastrocnemius vein and greater saphenous vein outflow ar e patent. IMPRESSION: 1. No deep venous thrombosis in either lower limb. Reviewed, dictated and finalized at location A. 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
== END 2022-04-19 11:57 | disposition home or self-care (01) ==
PROVIDERS: PCP Internal Medicine; Visit Provider Internal Medicine
DX: R60.9 Edema, unspecified (principal)
CPT/HCPCS: 93970

== ENCOUNTER → 2023-06-08 08:26 | Outpatient (CLI) | payer MEDICARE, SELFPAY ==
--- NOTE | ~2023-06-08 | MR_ITS ---
MRI of the lumbar spine Clinical History: Spondylolisthesis Technique: Axial T2-weighted images, and sagittal T1-weighted, T2-weighted, and and T2 fat-sat images were acquired. Findings: There is no fracture or subluxation of the lumbar spine. Vertebral bodies maintain normal h eight and alignment. No bone marrow signal abnormality seen. At L1-L2, there is minimal disc bulge and moderate facet arthropathy. No central canal stenosis. Ther e is mild to moderate right neural foraminal narrowing, and minimal left neural foraminal narrowing. At L2-L3, there is mild disc bulge and moderate facet arthropathy. No central canal stenosis. There i s mild bilateral neural foraminal narrowing. At L3-L4, there is diffuse disc bulge and moderate facet arthropathy. No central canal stenosis. Ther e is mild to moderate bilateral neural foraminal narrowing. At L4-L5, there is disc bulge and moderate to advanced facet arthropathy. No central canal stenosis. There is minimal right neural foraminal narrowing. At L5-S1, there is minimal disc bulge and moderate facet arthropathy. No central canal stenosis or ne ural foraminal narrowing. Paravertebral soft tissues are unremarkable. Impression: Mild degenerative spondylosis overall, as detailed above. Reviewed, dictated and finalized at location . TY EXTENSION AGENT Impression: Mild degenerative spondylosis overall, as detailed above.
== END ==
PROVIDERS: PCP Family Medicine Sports Medicine; Visit Provider Nurse Practitioner Family
DX: M43.10 Spondylolisthesis, site unspecified (principal); M47.896 Other spondylosis, lumbar region
CPT/HCPCS: 72148

== ENCOUNTER 2023-10-28 08:33 | Outpatient (CLI) | payer MEDICARE, SELFPAY ==
[2023-10-28 09:10] LABS: Basophils Absolute Auto 0.1 K/mm3 (0.0-0.1); Basophils Percent Auto 0.8 % (0.2-1.2); Eosinophils Absolute Auto 0.1 K/mm3 (0-0.3); Eosinophils Percent Auto 0.8 % (0-4.4); Hematocrit 48.4 % (42.0-52.0); Hemoglobin 15.8 g/dL (14.0-18.0); Immature Granulocyte Absolute 0.05 K/mm3 (0.00-0.031); Immature Granulocyte Percent A 0.6 % (0-0.5); Lymphocytes Absolute Auto 1.27 K/mm3 (0.9-3.2); Lymphocytes Percent Auto 14.8 % (18.3-44.2); Mean Corpuscular HGB Conc 32.6 g/dl (32-36); Mean Corpuscular Hemoglobin 31.2 pg (26-34); Mean Corpuscular Volume 95.7 fl (80-100); Mean Platelet Volume 11.2 fl (7.4-10.4); Monocytes Absolute Auto 0.6 K/mm3 (0.1-0.6); Monocytes Percent Auto 7.3 % (2.6-8.5); Neutrophils Absolute Auto 6.5 K/mm3 (1.3-6.7); Neutrophils Percent Auto 75.7 % (45.5-73.1); Platelet Count Result 197 k/mm3 (150-375); Red Blood Count 5.06 M/mm3 (4.6-6.20); Red Cell Distribution Width 12.5 % (11.5-14.5); White Blood Count 8.6 K/mm3 (4.5-10.0)
[2023-10-28 09:18] LABS: Alanine Aminotransferase 23 U/L (6-50); Albumin Level 4.3 g/dL (3.5-5.1); Alkaline Phosphatase 86 U/L (38-126); Anion Gap 9 mmol/L (4-12); Aspartate Amino Transferase 29 U/L (17-59); Bilirubin,Total 1.9 mg/dL (0.2-1.3); Blood Urea Nitrogen 30 mg/dL (9-20); CRP < 0.5 mg/dL (<1.0); Calcium 9.3 mg/dL (8.4-10.2); Carbon Dioxide 27 mmol/L (22-30); Chloride 101 mmol/L (98-107); Estimated Glomerular Filt Rate 49; Glucose 107 mg/dL (65-110); Sodium 137 mmol/L (137-145)
[2023-10-28 09:24] LABS: Bacteria Urine None Seen /hpf; Non Pathogenic Casts 0-2; RBC Urine 0-2 /hpf (0-2); Squamous Epithelial Cell Urine None Seen /hpf (Few); WBC Urine 0-5 /hpf (0-3)
[2023-10-28 09:34] LABS: Appearance Urine Clear (Clear); Bilirubin Urine Negative (Negative); Blood Urine Negative (Negative); Color Urine Yellow (Yellow); Glucose Urine UA Negative (Negative); Ketones Urine Negative (Negative); Leukocyte Esterase Ur Negative LEU/UL (Negative); Nitrate Urine Negative (Negative); Protein Urine Negative (Negative); Specific Grav Ur 1.006 (1.001-1.035); Urobilinogen Urine 0.2 mg/dL (<2.0); pH Urine 5.5 (5.0-9.0)
[2023-10-28 09:37] LABS: Add Urine Microscopic? NO
[2023-10-28 09:41] LABS: Erythrocyte Sedimentation Rate 5 mm/hr (0-20)
== END 2023-10-28 08:34 | disposition home or self-care (01) ==
PROVIDERS: PCP Family Medicine Sports Medicine; Visit Provider Nurse Practitioner Family
DX: Z01.818 Encounter for other preprocedural examination (principal)
CPT/HCPCS: 36415; 80053; 81003; 85025; 85652; 86140

== ENCOUNTER 2023-11-15 08:14 | Outpatient (CLI) | payer MEDICARE, SELFPAY ==
--- NOTE | ~2023-11-15 | MR_ITS ---
MRI of the thoracic spine Clinical History: Spondylosis Technique: Axial T2-weighted and gradient images, and sagittal T1-weighted, T2-weighted, and STIR anne marie ges were acquired. Findings: There is no acute fracture or subluxation of the thoracic spine. Vertebral bodies maintain normal alignment. No suspicious bone marrow signal reality seen. There is moderate to advanced degenerative disc disease with partial fusion across the disc spaces, e xtending from T6 to T11. No significant disc bulge or herniation identified at any thoracic level. There are scattered areas o f mild facet arthropathy. No spinal canal stenosis or cord compression identified. Neural foramina ap pear preserved. Paravertebral soft tissues are unremarkable. Impression: Misv-le-nvsuasum degenerative spondylosis, as above. Reviewed, dictated and finalized at location M. Impression: [id number] degenerative spondylosis, as above.
== END 2023-11-15 08:15 ==
LOC: GOSHIMG 08:15
PROVIDERS: PCP Family Medicine Sports Medicine; Visit Provider Anesthesiology Pain Medicine
DX: M47.894 Other spondylosis, thoracic region (principal)
CPT/HCPCS: 72146

== ENCOUNTER 2024-05-29 09:58 | Emergency (ER) | payer MEDICARE, SELFPAY ==
--- NOTE | ~2024-05-29 | XR_ITS ---
EXAMINATION: XR foot LT min 3V DATE: 05/29/2024 14:56 INDICATION: Left foot pain. TECHNIQUE: 4 views of left foot were obtained. COMPARISON: None. FINDINGS: Alignment is normal. No fracture. There is mild osteoarthritis of some of the interphalange al joints and midfoot joints. There are enthesophytes at the posterior and plantar aspects of calcane al tuberosity. IMPRESSION: 1. Mild polyarticular osteoarthritis. Reviewed, dictated and finalized at location A. RT ENGINEER
--- NOTE | ~2024-05-29 | XR_ITS ---
EXAMINATION: XR ankle LT min 3V DATE: 05/29/2024 14:56 INDICATION: Left ankle pain. TECHNIQUE: 4 views of left ankle were obtained. COMPARISON: None. FINDINGS: Alignment is normal. No fracture. Joint spaces are normal. There are enthesophytes at the p osterior and plantar aspects of calcaneal tuberosity. IMPRESSION: 1. No fracture. Reviewed, dictated and finalized at location A. SCRIPTER IMPRESSION: 1. No fracture.
[2024-05-29 10:07] VITALS: BP 149/60; PULSE 85; RESP 14; TEMP 36.5; O2SAT 100
--- OUTSIDE RECORDS SUMMARY | 2024-05-29 10:43 | XMS_ITS | Referral Summary ---
Author Organization [facility] Address [address] [place] [address] Care Team Providers Care Rating Officer Name Role Phone Jeremy Delvalle MD Unavailable [phone] Virgilio Degroot MD Unavailable Cesar Sepulveda MD Primary Care Provider Encounters Date Type Department Care Team Description 03/24/2024 9:30 AM ADMINISTRATOR PESTICIDE Office Visit [facility] [address] [place] [address] Blaine Pringle MD Permanent atrial fibrillation (CMS/HCC) (HCC) (Primary Dx); Other thrombophilia (HCC) 03/10/2024 9:15 AM ADMINISTRATOR PESTICIDE Telemedicine [facility] Virtual [facility] [address] [place] [address] Alexandra Snider MD Bilateral leg edema (Primary Dx) 03/09/2024 Nurse Triage [facility] Primary [facility] at [address] [place] [address] Cesar Sepulveda MD from Last 3 Months Allergies Active Allergy Reactions Criticality Noted Date Comments Sieazkd-Rno-Ixf Reductase Inhibitors Other (See comments),Headache Low 12/15/2015 Elevated heart rate. Medications esomeprazole DR (NexIUM) 40 mg capsule TAKE 1 CAPSULE BY MOUTH EVERY OTHER DAY 90 capsule 1 10/04/2023 Active furosemide (LASIX) 20 mg tablet TAKE 1 TABLET(20 MG) BY MOUTH EVERY MORNING 90 tablet 1 01/08/2024 Active apixaban (ELIQUIS) 5 mg tablet Take 1 tablet (5 mg total) by mouth 2 (two) times a day 180 tablet 2 03/24/2024 Active dilTIAZem CD/XR/XT (DILT-XR) 120 mg 24 hr capsule TAKE 1 CAPSULE(120 MG) BY MOUTH EVERY MORNING 90 capsule 04/13/2024 Active ezetimibe (ZETIA) 10 mg tablet TAKE 1 TABLET(10 MG) BY MOUTH DAILY 90 tablet 04/13/2024 Active lisinopriL (PRINIVIL,ZESTR [place]) 10 mg tablet TAKE 1 TABLET(10 MG) BY MOUTH DAILY 90 tablet 04/13/2024 Active allopurinoL (ZYLOPRIM) 100 mg tablet TAKE 1 TABLET(100 MG) BY MOUTH DAILY 90 tablet 04/13/2024 Active metoprolol XL (TOPROL-XL) 100 mg 24 hr tablet TAKE 1 TABLET BY MOUTH EVERY MORNING 90 tablet 1 04/13/2024 Active Active Problems Problem Noted Date Diagnosed Date 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 Senile purpura (CMS/HCC) 01/02/2024 Class 1 obesity due to exces s calories with serious comorbidity and body mass index (BMI) of 34.0 to 34.9 in adult 01/02/2024 Assessment & Plan (01/02/2024 5:58 PM CDT): Chronic. Suboptimally controlled. Encouraged healthy diet, exercise, weight loss History of colon polyps 07/23/2023 Urinary frequency 07/02/2023 Assessment & Plan (07/02/2023 4:49 PM CDT): Some of his nocturnal symptoms have improved with starting tamsulosin. We will continue as it seems to be helping some. Monitor Chronic renal failure, stage 3a 07/02/2023 Assessment & Plan (01/02/2024 5:56 PM CDT): Chronic. Mild. Monitor labs. Avoid dehydration. Avoid NSAIDs. Updated renal function ordered. Okay for cautious increase Lasix for 3 days if swelling worsens but should try to control swelling with diet and lifestyle modifications instead Assessment & Plan (07/02/2023 4:50 PM CDT): Noted on prior labs this past year. We will need to avoid dehydration and use caution with NSAIDs. We will plan to monitor least once yearly or if concerns arise. Atherosclerosis of abdominal aorta 03/08/2023 Assessment & Plan (01/02/2024 5:56 PM CDT): Incidental prior imaging. Continue risk factor modification with Eliquis and ezetimibe Assessment & Plan (07/02/2023 4:46 PM CDT): Incidental prior imaging. Statin intolerant. Continue Zetia for secondary prevention Statin intolerance 12/25/2022 Assessment & Plan (01/02/2024 5:56 PM CDT): On ezetimibe instead. Continue Assessment & Plan (07/02/2023 4:48 PM CDT): Started on ezetimibe in the fall for cholesterol. If unable to achieve appropriate control then we may consider seeing if insurance will cover a PCSK9 inhibitor Nonrheumatic mitral valve regurgitation 08/02/19 23 meterman current use of anticoagulant Assessment & Plan (01/02/2024 5:57 PM CDT): Fatigue he has bleeding does have some issues with easier bruising. Has seeing her and has deferred given his increased bleeding risk with the Eliquis Atrial fibrillation ([facility]) 05/15/2022 Assessment & Plan (01/02/2024 5:54 PM CDT): Chronic. Controlled. Continue diltiazem, metoprolol, and Eliquis. Continue risk factor modification. Assessment & Plan (07/02/2023 4:46 PM CDT): Chronic. Controlled. Continue anticoagulation with Eliquis and diltiazem. HTN (hypertension) 05/15/2022 Assessment & Plan (01/02/2024 5:55 PM CDT): Chronic. Blood pressure well-controlled with current regimen. Continue lisinopril, metoprolol, diltiazem. Monitor Assessment & Plan (07/02/2023 4:47 PM CDT): Chronic. HTN controlled. Cont prescription Rx. Low sodium diet (DASH or Mediterranean), exercise, wt loss (if over weight) discussed Pure hypercholesterolemia 05/15/2022 Assessment & Plan (01/02/2024 5:55 PM CDT): Chronic. Statin intolerant. Tolerates ezetimibe. Continue. Check cholesterol level. Assessment & Plan (07/02/2023 4:47 PM CDT): Chronic. Statin intolerant. Continue Zetia started after last labs. If unable to achieve control with ezetimibe then may need to consider a PCSK9 inhibitor Coronary artery disease invo lving [place] coronary artery of [place] heart without angina pectoris 05/15/2022 Assessment & Plan (01/02/2024 5:55 PM CDT): Chronic. Risk factor modification recommended. Continue ezetimibe given statin intolerance. Preferably targeting an LDL less than 70 if possible. ASA has been deferred given patient is on therapeutic anticoagulation with Eliquis and has easy bruising issues. Assessment & Plan (07/02/2023 4:47 PM CDT): Chronic. Denies chest pain. Continue risk factor modification. Patient is statin intolerant so we are continuing on Zetia. History of gout 05/15/2022 Assessment & Plan (01/02/2024 5:55 PM CDT): No recent flares. Continue allopurinol. Check uric acid Assessment & Plan (07/02/2023 4:48 PM CDT): Chronic. Denies any recent flares. 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 There was a decline in the ability to draw the clock compared to his last visit. CS does not voice any concerns about patient's driving. I recommended CS ride with the patient at least once every two weeks. If she notes any decline, she will reach out to us and we will obtain a formal driving evaluation. We briefly discussed the new anti-amyloid therapies that are currently out as well as testing to see eligibility (biomarkers, APOE, brain MRI). We further discussed the three options for obtaining biomarkers. At this time, patent would like to think about it and will let us know if interested. Information was provided on the [employer] in which he would also like to think about. Follow-up in 6 months or sooner if need be. Assessment & Plan (01/02/2024 5:54 PM CDT): Chronic. Reports memory slightly worsening. Family is helping with all financial matters. Working with the memory clinic as well Assessment & Plan (07/02/2023 4:47 PM CDT): Chronic. Slight memory impairment. Following with Neurology. He is on Exelon and we will continue this for now. History of rectal cancer 04/07/2019 Assessment & Plan (07/02/2023 4:46 PM CDT): Patient is due for follow up with his colorectal surgeon. He last saw 3 years ago. We will refer back to specialists. He will be due for a colonoscopy in potential any additional test per the specialists. Patient and his daughter were given the contact information for his specialist. Currently without any active signs of recurrence Resolved Problems Problem Noted Date Diagnosed Date Resolved Date Encounter for screening colonoscopy 10/12/2019 12/25/2022 Overview (10/12/2019): Added automatically from request for surgery [id number] Rectal tumor 09/02/2018 05/15/2022 Overview (09/02/2018): Added automatically from request for surgery [id number] Thumb pain, left 05/15/2018 05/15/2022 Immunizations Name Administration Dates Next Due Influenza, Quadrivalent, Hig h Dose, Preservative Free, Intrr 01/04/2020 Influenza, Quadrivalent, Spl it, Preservative Free, Intramuscular 01/24/2015,01/27/2014,01/20/2014 Influenza, Trivalent, High D ose, Split, Preservative Free, Intramuscular 01/02/2019,02/04/2018,01/14/2017,01/31 Pneumococcal Conjugate PCV 13 12/06/2015, 015 Pneumococcal Polysaccharide PPV23 02/01/2012 TD Preservative Free 10/19/2016 ZOSTER LIVE 01/14/2013 Social History Tobacco Use Types Packs/Day Years Used Date Smoking Tobacco: Former Cigarettes 1 34 0 04/22/1964 - 04/22/1998 Smokeless Tobacco: Never Tobacco Cessation:Counseling Given: Not Answered Alcohol Use Standard Drinks/Week Comments Yes 6 (1 standard drink = 0.6 oz pur e alcohol) AUDIT-C Answer Date Recorded Q1: How often do you have a drink containing alc ohol? 2-3 times a week 01/02/2024 Q2: How many drinks containi ng alcohol do you have on a typical day when you are drinking? 1 or 2 01/02/2024 Q3: How often do you have si x or more drinks on one occasion? Never 01/02/2024 PHQ-2 Answer Date Recorded PHQ-2 Total Score (If total score is 3 or more points, staff should administer the PHQ-9) 0 01/02/2024 Personal Safety Answer Date Recorded Have you ever been in or are you currently in a harmful physical or emotional relationship or is someone making you feel afraid or unsafe? 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 Not on file Not on file Last Filed Vital Signs Vital Sign Reading Time Taken Comments Blood Pressure 120/70 03/24/2024 9:39 AM ADMINISTRATOR PESTICIDE Pulse 78 03/24/2024 9:39 AM ADMINISTRATOR PESTICIDE Temperature 36.6 C (97.8 F) 01/21/2024 8:21 AM CDT Respiratory Rate 18 02/25/2024 2:11 PM ADMINISTRATOR PESTICIDE Oxygen Saturation 97% 03/24/2024 9:39 AM ADMINISTRATOR PESTICIDE Inhaled Oxygen Concentration - - Weight 108.8 kg (239 lb 14.4 oz) 03/24/2024 9:39 AM ADMINISTRATOR PESTICIDE Height 177.8 cm (5' 10 ) 03/24/2024 9:39 AM ADMINISTRATOR PESTICIDE Body Mass Index 34.42 03/24/2024 9:39 AM ADMINISTRATOR PESTICIDE Plan of Treatment Not on file Procedures Procedure Name Priority Date/Time Associated Diagnosis Comments COLONOSCOPY 10/18/2023 6:53 AM CDT HEPATITIS C ANTIBODY Routine 12/25/2022 8:30 AM CDT Primary hypertension Encounter for hepatitis C screening test for low risk patient from Last 3 Months or Most Recently Relevant to Health Maintenance Results * Colonoscopy (10/18/2023 6:53 AM CDT) Anatomical Region Laterality Modality Other Narrative Procedure Note Jeremy Delvalle MD - 10/18/2023 6:53 AM CDT [facility] Patient Name: Reynold Godinez Procedure Date: 10/18/2023 6:53 AM Date of : 1945 Admit Type: Outpatient Age: 78 Gender: Male Attending MD: Jeremy Delvalle M.D. Room: [facility] ENDOSCOPY ROOM 02 Note Status: Finalized Procedure: Colonoscopy Indications: Personal history of malignant rectal neoplasm, Personal history of colonic polyps Referring MD: Sarah Kimble M.D. Providers: Jeremy Delvalle M.D. Medicines: Propofol per Anesthesia Complications: No immediate complications. Estimated Blood Loss: Estimated blood loss: none. Procedure: Pre-Anesthesia Assessment: - After reviewing the risks and benefits, thepatient was deemed in satisfactory condition to undergo the procedure. - Immediately prior to administration ofmedications, the patient was re-assessed for adequacy to receive sedatives. The benefits, risks and alternatives of theprocedure and sedation were discussed and informed consentwas obtained. All questions were answered. Please referto the signed informed consent document in the medical record. The scope was passed under direct vision.The [id number] Colonoscope was introducedthrough the anus and advanced to the the cecum, identifiedby appendiceal orifice and ileocecal valve. The colonoscopy was performed without difficulty. The patient tolerated the procedure well. The qualityof the bowel preparation was good. The bowelpreparation used was SUPREP. Findings: The site of the previous rectal cancer was palpated and was soft withno nodules. There is no evidence of residual or recurrent disease. Two sessile polyps were found in the ascending colon. The polyps were2 to 3 mm in size. These polyps were removed with a hot biopsy forceps. Resection and retrieval were complete. A 6 mm polyp was found in the ascending colon. The polyp was sessile. The polyp was removed with a hot snare. Resection and retrieval were complete. A 4 mm polyp was found in the descending colon. The polyp wassessile. The polyp was removed with a hot biopsy forceps. Resection andretrieval were complete. A 2 mm polyp was found in the rectum. The polyp was sessile. Thepolyp was removed with a hot biopsy forceps. Resection and retrieval were complete. A scar was found in the distal rectum. There was no evidence of the previous polyp. Impression: - Two 2 to 3 mm polyps in the ascending colon,removed with a hot biopsy forceps. Resected andretrieved. - One 6 mm polyp in the ascending colon, removedwith a hot snare. Resected and retrieved. - One 4 mm polyp in the descending colon, removedwith a hot biopsy forceps. Resected and retrieved. - One 2 mm polyp in the rectum, removed with a hot biopsy forceps. Resected and retrieved. - Scar in the distal rectum. Recommendation: - Await pathology results. - Repeat colonoscopy in 3 years for surveillance. Electronically signed by Shon Delvalle Jeremy Delvalle M.D. 10/18/2023 7:59:35 AM Number of Addenda: 0 Note Initiated On: 10/18/2023 6:53 AM Recognized by the [employer] for promoting quality in endoscopy Jeremy Delvalle MD ENDOSCOPY PROCEDURES Final Res ult * Hepatitis C antibody Blood (12/25/2022 8:30 AM CDT) Hep C Ab Nonreactive Nonreactive Comment: Interpretive Data Nonreactive: Antibodies to HCV not detected. Does NOT exclude the possibility of recent exposure to HCV. Equivocal: Equivocal for HCV antibodies. Supplemental molecular testing will be automatically performed to determine infection status in accordance with current CDC screening recommendations. Reactive: Positive for HCV antibodies. This may represent current or past HCV infection. Supplemental molecular testing will be automatically performed to determine current infection status in accordance with current CDC screening recommendations. Interpretive data was last revised on 2019. Blood 12/25/2022 8:30 AM CDT 12/25/2022 5:53 PM CDT Sarah Kimble MD LAB MICROBIOLOGY - GEN ERAL ORDERABLES Final Result [facility] [id number] [employer] [place] [address] from Last 3 Months or Most Recently Relevant to Health Maintenance [place] [address] [place] [address] [employer] [address] [place] [address] [employer] MED[employer]ARE [address] [place] [address] Advance Directives For more information, please contact: [phone] * Full Code (Latest Code Status on File) Date Activated Date Inactivated Comments 10/18/2023 6:55 AM 10/18/2023 12:51 PM * Full Code Date Activated Date Inactivated Comments 07/08/2020 9:09 AM 07/08/2020 4:13 PM * Full Code Date Activated Date Inactivated Comments 01/11/2020 9:39 AM 01/11/2020 4:20 PM * Full Code Date Activated Date Inactivated Comments 09/11/2018 1:49 PM 09/12/2018 6:23 PM Care Teams Rating Officer Relationship Specialty Start Date End Date Cesar Sepulveda MD [address] [place] [address] [address] [place] [address] PCP - General Family Medicine 02/25/24 Jeremy Delvalle MD Surgeon Colon and Rectal Surgery 04/07/19 Virgilio Degroot MD [address] [facility] [address] [place] [address] Workforce Development Vice President Gastroenterology 09/24/19
--- OUTSIDE RECORDS SUMMARY | 2024-05-29 10:43 | XMS_ITS | Clinical Summary ---
Author Organization [facility] Address [address] [place] [address] Care Team Providers Care Veneer Jointer Returner Name Role Phone Wm Berger DO Primary Care Provider [phone] Allergies Active Allergy Reactions Criticality Noted Date Comments Statins Myalgias 12/15/2015 Medications diltiazem 24 hr (CARDIZEM CD) 120 MG capsule Take 1 tablet by mouth daily. 10/26/2009 Active Altair-3 Fatty Acids (FISH OIL CONCENTRATE) 300 MG Cap Take 1 tablet by mouth every other day. 06/06/2012 Active metoprolol succinate 100 MG 24 hr tablet Take 1.5 tablets by mouth daily. 10/26/2009 Active esomeprazole (NEXIUM) 40 MG capsule Take 40 mg by mouth every morning before breakfast. 08/11/2008 Active lisinopril-hydr ochlorothiazide 20-25 MG per tablet Take 1 tablet by mouth daily. 09/22/2015 Active Coenzyme Q10 (CO Q 10 OR) Take 1 capsule by mouth daily as needed. Active rosuvastatin 20 MG tablet Take 10 mg by mouth 3 (three) times a week. Take half tablet by mouth on Saturday, Saturday, Saturday Active Misc Natural Products (OSTEO BI-FLEX JOINT SHIELD OR) Take 1 tablet by mouth daily. Active Lactobacillus Acid-Pectin (ACIDOPHILUS/CI TRUS PECTIN) Tab Take 1 tablet by mouth daily as needed. Active WARFARIN SODIUM OR Take 1 tablet by mouth daily. 07/25/2017 Active colchicine 0.6 MG tablet as needed. 05/20/2017 Active Active Problems Problem Noted Date Diagnosed Date History of rectal cancer 04/07/2019 Rectal tumor 09/02/2018 Overview (05/22/2020): Overview: Added automatically from request for surgery [id number] HTN (hypertension) HLD (hyperlipidemia) Atrial fibrillation (CMS/HCC HHS/HCC) Family History Medical History Relation Comments Hypertension Brother Diabetes Father Heart Father Stroke Father Arthritis Mother Dementia Mother Hypertension Mother Diabetes Other Hypertension Other Lung Cancer Sister Relation Status Comments Brother Father Mother Other Sister Alive Social History Tobacco Use Types Packs/Day Years Used Date Smoking Tobacco: Former Cigarettes Q uit: 1986 Smokeless Tobacco: Former Quit: 1986 Alcohol Use Standard Drinks/Week Comments Yes 5 (1 standard drink = 0.6 oz pur e alcohol) daily Sex and Gender Information Value Date Recorded Sex Assigned at Not on file Legal Sex Male 9:05 PM CDT Gender Identity Not on file Sexual Orientation Not on file Occupation Industry Job Start Date Job End Date Retired Not on file Not on file Not on file Last Filed Vital Signs Vital Sign Reading Time Taken Comments Blood Pressure 150/82 05/23/2020 9:05 AM DEICER REPAIRER Pulse 75 05/23/2020 9:05 AM DEICER REPAIRER Temperature 36.6 C (97.8 F) 09/21/2019 1:24 PM CDT Respiratory Rate 20 07/25/2019 10:24 AM CDT Oxygen Saturation 98% 05/23/2020 9:05 AM DEICER REPAIRER Inhaled Oxygen Concentration - - Weight 106.1 kg (234 lb) 05/23/2020 9:05 AM DEICER REPAIRER Height 177.8 cm (5' 10 ) 05/23/2020 9:05 AM DEICER REPAIRER Body Mass Index 33.58 05/23/2020 9:05 AM DEICER REPAIRER Plan of Treatment Health Maintenance Due Date Last Done Comments PHQ-2 (Physician Soboba) 1957 Hepatitis C 1963 Annual Medicare Wellness Visit 07/17/2011 Zoster Vaccines (2 of 3) 03/11/2013 01/14/2013 DTaP, Tdap and Td Vaccines (1 - Tdap) 10/20/2016 10/19/2016 RSV Immunization or 60+ Years (1 - 1-dose 75+ series) 2021 COVID-19 Vaccine (1 - season) 2023 Influenza Adult (#1) 2024 01/04/2020, 01/02/2019, 02/04/2018, Additional history exists PHQ-2 (Physician [place]oba) 04/22/2024 Pneumococcal Vaccine: 65+ Years Completed 12/06/2015, 03/21/2015, 02/01/2012 AAA SCREENING Completed 02/05/2019 Colorectal Cancer Screening Colonoscopy (10 Years) Discontinued 10/18/2023 Meningococcal B Vaccine Aged Out No l onger eligible based on patient's age to complete this topic Meningococcal Vaccine Aged Out No tino scar eligible based on patient's age to complete this topic RSV Immunizations Under 20 Months Aged Out No longer eligible based on patient's age to complete this topic Procedures Procedure Name Priority Date/Time Associated Diagnosis Comments COLONOSCOPY GENERIC (SCAN ORDER) 10/18/2023 CT ABD+PEL W CON STAT 02/05/2019 10:2 2 AM CDT RLQ abdominal pain from Last 3 Months or Most Recently Relevant to Health Maintenance Results * COLONOSCOPY GENERIC (SCAN ORDER) (10/18/2023) 10/18/2023 [facility] Scanned SCANNING Final Resu lt * CT ABD+PEL W CON (02/05/2019 10:22 AM CDT) Anatomical Region Laterality Modality Abdomen Computed Tomogra phy 02/05/2019 10:2 9 AM CDT Impressions 02/05/2019 10:31 AM CDT IMPRESSION: 1. No acute findings. No findings to explain the patient's symptoms Interpreted By: Júnior Broderick MD, 02/05/2019 10:29 AM Narrative 02/05/2019 10:[address] ABDOMEN AND PELVIS WITH CONTRAST Exam date:02/05/2019 10:13 AM Clinical history: Right lower quadrant pain. Technique: Dynamic helical images of the abdomen and pelvis were obtained. The patient received 100 mL of Isovue 370 nonionic intravenous contrast through an IV in the right antecubital fossa. A dose lowering technique was used for this procedure, which may include, but is not limited to, dose reduction technique, automated exposure control, the use of iterative reconstruction, and ALARA (As Low As Reasonably Achievable) / Image Gently techniques. Comparison: January 01, 2015. FINDINGS: Images of the lower thorax demonstrate the visualized portion of the heart to appear normal. The lung bases are clear. Images of the abdomen demonstrate the overall size and morphology of the liver to be within normal limits. No hepatic lesions are observed. No ascites is seen. The gallbladder is surgically absent. The pancreas is mildly atrophic. 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 The adrenal glands appear normal. The kidneys are normal in size bilaterally. There is normal symmetric enhancement after the administration of contrast. No stones or hydronephrosis is apparent. Both ureters follow normal expected course through the retroperitoneum. Images of the pelvis demonstrate the urinary bladder to appear normal. The prostate is moderately enlarged. Stomach and small bowel have a normal appearance throughout. The terminal ileum and appendix appear normal. Overall, the colon has a normal appearance. No adenopathy or abnormal fluid collections are seen within the abdomen or pelvis Procedure Note Júnior Broderick MD - 02/05/2019 CT ABDOMEN AND PELVIS WITH CONTRAST Exam date:02/05/2019 10:13 AM Clinical history: Right lower quadrant pain. Technique: Dynamic helical images of the abdomen and pelvis wereobtained. The patient received 100 mL of Isovue 370 nonionic intravenous contrast through an IV in the right antecubital fossa. A dose lowering techniquewas used for this procedure, which may include, but is not limited to, dose reduction technique, automated exposure control, the use of iterative reconstruction, and ALARA (As Low As Reasonably Achievable) / ImageGently techniques. Comparison: January 01, 2015. FINDINGS: Images of the lower thorax demonstrate the visualized portion of theheart to appear normal. The lung bases are clear. Images of the abdomen demonstrate the overall size and morphology of the liver to be within normal limits. No hepatic lesions are observed. No ascites is seen. The gallbladder is surgically absent. The pancreas is mildly atrophic. Old granulomatous disease is noted throughout thespleen. The adrenal glands appear normal. The kidneys are normal in size bilaterally. There is normal symmetric enhancement after theadministration of contrast. No stones or hydronephrosis is apparent. Both uretersfollow normal expected course through the retroperitoneum. Images of the pelvis demonstrate the urinary bladder to appear normal.The prostate is moderately enlarged. Stomach and small bowel have a normal appearance throughout. Theterminal ileum and appendix appear normal. Overall, the colon has a normal appearance. No adenopathy or abnormal fluid collections are seen withinthe abdomen or pelvis IMPRESSION: 1. No acute findings. No findings to explain the patient's symptoms Interpreted By: Júnior Broderick MD, 02/05/2019 10:29 AM Maday Brandt APRN CT Final Result from Last 3 Months or Most Recently Relevant to Health Maintenance Insurance MED REPLACE [facility] MEDICARE MED REPLACE [facility] MEDICARE Advance Directives Documents on File Type Date Recorded Patient Press Operator Assistant Expl anation Advance Directives and Living Will 07/25/2016 9:11 AM POA (H) WITH ADVANCE DIRECTIVE Advance Directives and Living Will 06/26/2012 12:00 AM POWER OF ERP PROJECT MANAGER FO R HEALTH CARE Advance Directives and Living Will 06/26/2012 12:00 AM POWER OF ERP PROJECT MANAGER FO R HEALTH CARE Care Teams Veneer Jointer Returner Relationship Specialty Start Date End Date Wm Berger DO [address] [id number] PCP - General INTERNAL MEDICINE 05/23/20
--- OUTSIDE RECORDS SUMMARY | 2024-05-29 10:43 | XMS_ITS | Encounter Summary ---
Author Organization [facility] Address [facility]ly [facility] [place] [address] Care Team Providers Care Diving Judge Name Role Phone Chester Broussard MD Primary Care Provider [phone] Chester Eli MD Unavailable [phone] Johanny Chang NP Unavailable [phone] Evy Rivera MD Unavailable [phone] Wm Berger DO Primary Care Provider [phone] Encounter Details Date Type Department Care Team (Late st Contact Info) Description 09/27/[address] [facility] Conversion [address] [place] [address] , Generic Conversion, Social History Tobacco Use Types Packs/Day Years [...] file Not on file Not on file documented as of this encounter Plan of Treatment Not on file documented as of this encounter Visit Diagnoses Not on filedocumented in this encounter Care Teams Diving Judge Relationship Specialty Start Date End Date Chester Broussard MD [address] [place] [address] PCP - General FAMILY PRACTICE 12/15/15 05/22/20 Wm Berger DO [address] [facility] [address] [place] [address] PCP - General INTERNAL MEDICINE 05/23/20 Chester Eli MD [address] [place] [address] CARDIOVASCULAR DISEASE 12/15/15 1 Johanny Chang NP [address] [place] [address] Nurse Practitioner NURSE PRACTITIONER 11/05/17 05/22/20 Evy Rivera MD [address] [place] [address] [address] [place] [address] Consulting Physician CARDIOVASCULAR DISEASE 02/24/19 documented as of this encounter
--- OUTSIDE RECORDS SUMMARY | 2024-05-29 10:43 | XMS_ITS | Encounter Summary ---
Author Organization [facility] Address [facility] [place] [address] Care Team Providers Care Geospatial Information Technologist Name Role Phone Chester Broussard MD Primary Care Provider [phone] Chester Eli MD Unavailable [phone] Johanny Chang NP Unavailable [phone] Evy Rivera MD Unavailable + [phone] Wm Berger DO Primary Care Provider [phone] Encounter Details Date Type Department Care Team (Late st Contact Info) Description 12/15/2015 Abstract [facility] [address] [place] [address] Zaria Vidales RN Social History Tobacco Use Types Packs/Day Years Used Date Smoking Tobacco: Former Cigarettes Q uit: 1986 Sex and Gender Information Value Date Recorded [...] on filedocumented in this encounter Care Teams Geospatial Information Technologist Relationship Specialty Start Date End Date Chester Broussard MD [address] [place] [address] PCP - General FAMILY PRACTICE 12/15/15 05/22/20 Wm Berger DO [address] [facility] [address] [place] [address] PCP - General INTERNAL MEDICINE 05/23/20 Chester Eli MD [address] [place] [address] CARDIOVASCULAR DISEASE 12/15/15 1 Johanny Chang NP [address] [place] [address] Nurse Practitioner NURSE PRACTITIONER 11/05/17 05/22/20 Evy Rivera MD [address] [facility] [address] [place] [address] Consulting Physician CARDIOVASCULAR DISEASE 02/24/19 documented as of this encounter
--- OUTSIDE RECORDS SUMMARY | 2024-05-29 10:43 | XMS_ITS | Continuity of Care Document ---
Author Organization [facility] Address [address] [place] [address] Phone Care Team Providers Care Machine Strap Buckler Name Role Phone Parrish RAMIREZ, Randall Unavailable Unavaila ble Procedures Procedure Date OFFICE/OUTPATIENT VISIT, EST EYE EXAM, NEW PATIENT Advance Directives Directive Yes / No Effective Date File Name No Information Encounters Encounter Description Practice Location Reason(s) For Visit Diagnoses Date Provider Providers Copied on Encounter OFFICE/OUTPAT IENT VISIT, [facility], [address] [place] [address], [id number], tel:[phone] [facility] No Information 7 Parrish Pereira. [address], [address], [place], [place], [id number], . tel:[phone] Referring Provider: Randall everett, [address] [place] [address], [id number]. tel:[phone] [facility], [address] [place] [address], [id number], tel:[phone] [facility] No Information 7 Parrish Mol. [address], [address] [place] [address], [id number], . tel:[phone] Referring Provider: Randall everett, [address] [place] [address], [id number]. tel:[phone] Family History Family Member Type Diagnosis Age At Onset No Information Payers Payer name Insurance type Covered democrat ID Authoriza tion(s) No Information Social History Type Description Quantity Date Captured Comments Sex Male Smoking Status No Information Chief Complaint And Reason For Visit No Information Plan Of Treatment Date Type Action Status No Information History Of Present Illness Encounter Date Complaint History Of Prese nt Illness No Information Instructions Date Instruction Additional Infor mation No Information Assessments Type Assessment Date No Information
--- OUTSIDE RECORDS SUMMARY | 2024-05-29 10:43 | XMS_ITS | Clinical Summary ---
Author Organization [facility] Address [address] [place] [address] Care Team Providers Care Tool And Die Supervisor Name Role Phone Jeremy Delvalle MD Unavailable [phone] Virgilio Degroot MD Unavailable Cesar Sepulveda MD Primary Care Provider Allergies Active Allergy Reactions Criticality Noted Date Comments Oqxaokw-Pnv-Jbw Reductase Inhibitors Other (See comments),Headache Low 12/15/2015 [...] inhibitor Nonrheumatic mitral valve regurgitation 08/02/19 23 detention current use of anticoagulant Assessment & Plan (01/02/2024 5:57 PM CDT): Fatigue he has bleeding does have some issues with easier bruising. Has seeing her and has deferred given his increased bleeding risk with the Eliquis Atrial fibrillation ([facility]) 05/15/2022 Assessment & Plan (01/02/2024 5:54 PM [...] PCSK9 inhibitor Coronary artery disease invo lving kobuk coronary artery of k[place] heart without angina pectoris 05/15/2022 Assessment & [...] if interested. Information was provided on the [employer] in which he would also like [...] (10/12/2019): Added automatically from request for surgery [id number] Rectal tumor 09/02/2018 05/15/2022 Overview (09/02/2018): Added automatically from request for surgery [id number] Thumb pain, left 05/15/2018 05/15/2022 Encounters Date Type Department Care Team Description 03/24/2024 9:30 AM MAJOR APPLIANCE ASSEMBLY SUPERVISOR Office Visit [facility] [address] [place] [address] Blaine Pringle MD Permanent atrial fibrillation (CMS/HCC) (HCC) (Primary Dx); Other thrombophilia (HCC) 03/10/2024 9:15 AM MAJOR APPLIANCE ASSEMBLY SUPERVISOR Telemedicine [facility] [address] [place] [address] Alexandra Snider MD Bilateral leg edema (Primary Dx) 03/09/2024 Nurse Triage [facility] at [address] [place] [address] Cesar Sepulveda MD from Last 3 Months Immunizations Name Administration Dates Next Due Influenza, Quadrivalent, Hig h Dose, Preservative Free, Intrr 01/04/2020 Influenza, Quadrivalent, Spl it, Preservative Free, Intramuscular 01/24/2015,01/27/2014,01/20/2014 Influenza, Trivalent, High D ose, Split, Preservative Free, Intramuscular 01/02/2019,02/04/2018,01/14/2017,01/31 Pneumococcal Conjugate PCV 13 12/06/2015, 015 Pneumococcal Polysaccharide PPV23 02/01/2012 TD Preservative Free 10/19/2016 ZOSTER LIVE 01/14/2013 Surgical History Surgery Date Site/Laterality Comments KNEE ARTHROSCOPY HAND SURGERY GALLBLADDER SURGERY 07/21/2008 - 08/19/2008 COLONOSCOPY 01/2011, 07/2011, 07/22 013, 08/2018 CARDIAC CATHETERIZATION 12/21/2006 - 01/19/2007 KNEE SURGERY 1999, 07/2010 CATARACT EXTRACTION, BILATERAL 06/20/2012 - 07/20/2012 COLONOSCOPY Medical History Medical History Date Comments Arthritis Asthma Clotting disorder ([facility]) (HCC) GERD (gastroesophageal reflux disease) Hypercholesteremia Colorectal polyps High blood pressure Gout Arthritis A-fib (CMS/HCC) (HCC) CAD (coronary artery disease) Dementia ([facility]) Allergies Sinusitis Headache Family History Medical History Relation Name Comments Arthritis Father Bakari Clotting disorder Father Bakari Diabetes Father Bakari Heart disease Father Bakari Hyperlipidemia Father Bakari Stroke Father Bakari Dementia Maternal Grandmother Arthritis Mother Loli Clotting disorder Mother Lloi Dementia Mother Loli Dementia Paternal Grandmother Relation Name Status Comments Father Bakari Maternal Grandmother Mother Loli Paternal Grandmother Social History Tobacco Use Types Packs/Day Years [...] on file Legal Sex Male 8:38 AM MAJOR APPLIANCE ASSEMBLY SUPERVISOR Gender Identity Not on file Sexual Orientation Not on file 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 Not on file Not on file Obstetrics History Last Filed Vital Signs Vital Sign Reading Time Taken Comments Blood Pressure 120/70 03/24/2024 9:39 AM MAJOR APPLIANCE ASSEMBLY SUPERVISOR Pulse 78 03/24/2024 9:39 AM MAJOR APPLIANCE ASSEMBLY SUPERVISOR Temperature 36.6 C (97.8 F) 01/21/2024 8:21 AM CDT Respiratory Rate 18 02/25/2024 2:11 PM MAJOR APPLIANCE ASSEMBLY SUPERVISOR Oxygen Saturation 97% 03/24/2024 9:39 AM MAJOR APPLIANCE ASSEMBLY SUPERVISOR Inhaled Oxygen Concentration - - Weight 108.8 kg (239 lb 14.4 oz) 03/24/2024 9:39 AM MAJOR APPLIANCE ASSEMBLY SUPERVISOR Height 177.8 cm (5' 10 ) 03/24/2024 9:39 AM MAJOR APPLIANCE ASSEMBLY SUPERVISOR Body Mass Index 34.42 03/24/2024 9:39 AM MAJOR APPLIANCE ASSEMBLY SUPERVISOR Plan of Treatment Health Maintenance Due Date Last Done Comments Zoster Vaccine (2 of 3) 03/11/2013 01/14/2013 DTaP/Tdap/Td Vaccine (1 - Tdap) 10/20/2016 7 Influenza Vaccine (#1) 2023 0, 01/02/2019, 02/04/2018, Additional history exists Depression Screening 01/01/2025 01/02/2024, 04/19/2023, 05/15/2022 Fall Risk Assessment 01/01/2025 01/02/2024, 10/18/2023, 07/02/2023, Additional history exists Well Visit 65+ 01/01/2025 01/02/2024 Colon Cancer Screening-Colonoscopy 10/17/2026 10/18/2023, 07/08/2020, 01/11/2020 Pneumococcal vaccine 65+ Completed 016, 03/21/2015, 02/01/2012 Abdominal Aortic Aneurysm (A AA) Screen Completed 02/05/2019 Hepatitis C Screening Completed 12/25/2022 Colon Cancer Screening-CT Colonography Discontinued 10/18/2023, 07/08/2020, 01/11/2020 Colon Cancer Screening-DNA Stool Discontinued 10/18/2023, 07/08/2020, 01/11/2020 Colon Cancer Screening-FIT Discontinued 10/17, 07/08/2020, 01/11/2020 Colon Cancer Screening-Sigmoidoscopy Discontinued 10/18/2023, 07/08/2020, 01/11/2020 Hepatitis B Screening Completed 01/11/2024 Procedures Procedure Name Priority Date/Time Associated Diagnosis [...] Delvalle MD - 10/18/2023 6:53 AM CDT [facility] Patient Name: Reynold Godinez Procedure Date: 10/18/2023 6:53 AM Date of : 1945 Admit Type: Outpatient Age: 78 Gender: Male Attending MD: Jeremy Delvalle M.D. Room: [facility] ROOM 02 Note Status: Finalized Procedure: [...] The scope was passed under direct vision.The [id number] Colonoscope was introducedthrough the anus and advanced [...] On: 10/18/2023 6:53 AM Recognized by the [employer] for promoting quality [...] - GEN ERAL ORDERABLES Final Result CORNELIO HERNANDEZ [address] Department [place] [address] from Last 3 Months or Most Recently Relevant to Health Maintenance Insurance [employer] MEDICARE A[employer] MEDICARE Advance Directives For more information, please contact: [phone] * Full Code (Latest Code Status on File) Date Activated Date Inactivated Comments 10/18/2023 6:55 AM 10/18/2023 12:51 PM * Full Code Date Activated Date Inactivated Comments 07/08/2020 9:09 AM 07/08/2020 4:13 PM * Full Code Date Activated Date Inactivated Comments 01/11/2020 9:39 AM 01/11/2020 4:20 PM * Full Code Date Activated Date Inactivated Comments 09/11/2018 1:49 PM 09/12/2018 6:23 PM Care Teams Tool And Die Supervisor Relationship Specialty Start Date End Date Cesar Sepulveda MD [address] [place] [address] [address] [place] [address] PCP - General Family Medicine 02/25/24 Jeremy Delvalle MD Surgeon Colon and Rectal Surgery 04/07/19 Virgilio Degroot MD [address] [place] [address] Cistern Room Operator Gastroenterology 09/24/19
--- OUTSIDE RECORDS SUMMARY | 2024-05-29 10:43 | XMS_ITS | Encounter Summary ---
Author Organization [facility] Address [facility] [place] [address] Care Team Providers Care Ambulatory Care Name Role Phone Chester Broussard MD Primary Care Provider [phone] Chester Eli MD Unavailable [phone] Johanny Chang NP Unavailable [phone] Evy Rivera MD Unavailable [phone] Wm Berger DO Primary Care Provider [phone] Encounter Details Date Type Department Care Team (Late st Contact Info) Description 06/28/2015 Abstract [facility] [address] [place] [address] Johanny Chang, LABORER [employer] [address] [place], [place] [address] Social History Tobacco Use Types Packs/Day Years [...] on filedocumented in this encounter Care Teams Ambulatory Care Relationship Specialty Start Date End Date Chester Broussard MD [address] [place] [address] PCP - General FAMILY PRACTICE 12/15/15 05/22/20 Wm Berger DO [address] [facility] [facility] [address] [place], [place] [id number] PCP - General INTERNAL MEDICINE 05/23/20 Chester Eli MD [address] [place] [address] CARDIOVASCULAR DISEASE 12/15/15 1 Johanny Chang NP [address] [place] [address] Nurse Practitioner NURSE PRACTITIONER 11/05/17 05/22/20 Evy Rivera MD [address] [facility] [address] [place] [address] Consulting Physician CARDIOVASCULAR DISEASE 02/24/19 documented as of this encounter
--- NOTE | 2024-05-29 14:26 | ED.LOWEXIN ---
HPI - Extremity Injury (Lower) General Chief Complaint: Extremity Injury, Lower <Nesha Ochoa PA-C - Last Filed: 05/29/24 14:27> Stated Complaint: left ankle injury <Nesha Ochoa PA-C - Last Filed: 05/29/24 14:27> Time Seen by Provider: 05/29/24 14:50 <Nesha Ochoa PA-C - Last Filed: 05/29/24 14:27> Focused HPI: 78-year-old male presents to the ED without are at bedside for left foot and ankle pain. Patient states he has been dealing with left foot and ankle pain intermittently for several months and has ?flares?. He does endorse history of gout but says he has not been treated for gout several years. He did have a fall yesterday for he states he lost his balance while trying to get out of bed and landed on his knee. Unsure if he injured his ankle or foot in that time. He did not his head or lose consciousness. Also states he had a fall today where he was ambulating without his walker and again fell and landed on his knees, did not hit his head or lose consciousness. Has no other injuries and denies other pain. GENERAL: Well-appearing, well-nourished, and in no acute distress. HEAD: Normocephalic, atraumatic. CHEST: Clear to auscultation. ?No respiratory distress. EXT: Edema to the lateral malleolus and extending to the 5th and 4th metatarsal with overlying warmth and erythema, patient able to wiggle toes, no obvious deformity, DP pulse 2 +, sensation intact HEART: Regular rate and rhythm.? NEURO: ?Alert and oriented x3. Patient screened in triage and initial orders placed.? ?Additional care and disposition to be based upon?diagnostic testing and treatment. <Nesha Ochoa PA-C - Last Filed: 05/29/24 14:27> History of Present Illness HPI Narrative: agree with the HPI above. Patient has been able to ambulate since his fall this afternoon. <Km Silva MD - Last Filed: 05/29/24 15:17> Related Data Home Medications: Home Medications ?Medication ?Instructions ?Recorded ?Confirmed ?Last Taken ?Type esomeprazole magnesium 40 mg 40 mg PO DAILY 04/04/21 04/12/22 Unknown History capsule,delayed release diltiazem HCl 120 mg capsule,24 120 mg PO DAILY 03/23/22 04/12/22 Unknown History hr,extended release <Nesha Ochoa PA-C - Last Filed: 05/29/24 14:27> Allergies/Adverse Reactions: Allergies Allergy/AdvReac Type Severity Reaction Status Date / Time No Known Allergies Allergy Verified 04/12/22 08:07 <Nesha Ochoa PA-C - Last Filed: 05/29/24 14:27> Review of Systems Review of Systems: As reviewed above in HPI <Km Silva MD - Last Filed: 05/29/24 15:17> [facility] Past Medical History Medical History: Medical History Gout Screening for colon cancer Atrial fibrillation Gastroesophageal reflux disease Hyperlipidemia Hypertension <Nesha Ochoa PA-C - Last Filed: 05/29/24 14:27> Surgical History Surgical History: Surgical History Hx of cholecystectomy <Nesha Ochoa PA-C - Last Filed: 05/29/24 14:27> Family History Family History: Family History Father , stroke, diabetes, heart problems Heart disease <Nesha Ochoa PA-C - Last Filed: 05/29/24 14:27> Social History Social History: Social History Smoking packs per day: 1 Smoking cigarettes per day: 20.0 Years smoked: 14 Smoking pack-years: 14.00 Smoking status: Former smoker Tobacco type: cigarettes Second hand tobacco smoke exposure: No Smoking end date: 04/22/89 Alcohol intake: current Drinks per week: 3 Alcohol use details: beer Substance use: never Substance use type: does not use Lack of Transportation: No Lack of Food: Never True Current Housing: I Have Housing Concerned About Future Housing: No Difficulty Paying Gas/Electric Bills: No Difficulty Paying for Meds: No Currently Unemployed: No Education: Bachelor's Degree Difficulty w/ Childcare or Family Care: No <Nesha Ochoa PA-C - Last Filed: 05/29/24 14:27> Exam Narrative: GENERAL: Well-appearing, well-nourished, and in no acute distress. HEAD: Normocephalic, atraumatic. CHEST: Clear to auscultation. ?No respiratory distress. EXT: Edema to the lateral malleolus and extending to the 5th and 4th metatarsal with overlying warmth and erythema, patient able to wiggle toes, no obvious deformity, DP pulse 2 +, sensation intact HEART: Regular rate and rhythm.? NEURO: ?Alert and oriented x3. <Km Silva MD - Last Filed: 05/29/24 15:17> Course Vital Signs Vital signs: Vital Signs Temperature 36.5 C 05/29/24 10:07 Pulse Rate 85 05/29/24 10:07 Respiratory Rate 14 05/29/24 10:07 Blood Pressure 149/60 H 05/29/24 10:07 Pulse Oximetry 100 05/29/24 10:07 Temperature 36.5 C 05/29/24 10:07 Pulse Rate 85 05/29/24 10:07 Respiratory Rate 14 05/29/24 10:07 Blood Pressure 149/60 H 05/29/24 10:07 Pulse Oximetry 100 05/29/24 10:07 <Nesha Ochoa PA-C - Last Filed: 05/29/24 14:27> Vital Signs Temperature 36.5 C 05/29/24 10:07 Pulse Rate 85 05/29/24 10:07 Respiratory Rate 14 05/29/24 10:07 Blood Pressure 149/60 H 05/29/24 10:07 Pulse Oximetry 100 05/29/24 10:07 Temperature 36.5 C 05/29/24 10:07 Pulse Rate 85 05/29/24 10:07 Respiratory Rate 14 05/29/24 10:07 Blood Pressure 149/60 H 05/29/24 10:07 Pulse Oximetry 100 05/29/24 10:07 <Km Silva MD - Last Filed: 05/29/24 15:17> MDM - Extremity Injury (Lower) MDM Narrative Medical decision making narrative: 78-year-old male presenting with left ankle injury. He states he fell on it 2 weeks ago after twisting on carpet. Was able ambulate afterwards and then fell on it again today with a twist and fall injury. Was able to get up unassisted, took some aspirin Tylenol at home which alleviated most of his pain. Thinks he might have broken something so he came to the ER for evaluation. reported history of gout but has no clinical signs of this on his examination. He has some tenderness over the lateral malleolus and ligamentous structures in that area but no instability in the joint, plantar and dorsiflexion are full, able to wiggle the toes, no significant edema, 2+ dorsalis pedis pulse. X-rays of the left foot and ankle were obtained, patient politely declined any analgesia. X-rays were interpreted as negative without any acute fracture dislocations, some arthritis is seen which is chronic. Patient is given an Ryan wrap for comfort and stable for discharge home at this time and has medications for pain control at home. He was given return precautions. Is able to ambulate unassisted, did not require any crutches at this time. <Km Silva MD - Last Filed: 05/29/24 15:17> Medical Records Attestation: I reviewed the patient's medical records. <Km Silva MD - Last Filed: 05/29/24 15:17> Lab Data Attestation: I reviewed the patient's lab results. <Km Silva MD - Last Filed: 05/29/24 15:17> Imaging Data Attestation: I personally reviewed and interpreted this imaging study as follows: <Km Silva MD - Last Filed: 05/29/24 15:17> My impression: Impressions Ankle X-Ray 05/29/24 14:57 IMPRESSION: 1. No fracture. Foot X-Ray 05/29/24 14:58 IMPRESSION: 1. Mild polyarticular osteoarthritis. <Km Silva MD - Last Filed: 05/29/24 15:17> Discharge Plan Discharge Clinical Impression: Ankle sprain <Nesha Ochoa PA-C - Last Filed: 05/29/24 14:27> Patient Disposition: Home, Self-Care <Nesha Ochoa PA-C - Last Filed: 05/29/24 14:27> Condition: Stable <Nesha Ochoa PA-C - Last Filed: 05/29/24 14:27> Instructions: Antibiotic Form, Ankle Sprain (DC) <Nesha Ochoa PA-C - Last Filed: 05/29/24 14:27> Additional Instructions: your x-ray shows no fractures. You have an ankle sprain which will heal on its own but you can take Tylenol, ibuprofen or any other anti-inflammatory medications for pain control. Follow-up with regular doctor, return with any new or worsening concerns at any time. <Nesha Ochoa PA-C - Last Filed: 05/29/24 14:27> Patient Language: Tajik <Nesha Ochoa PA-C - Last Filed: 05/29/24 14:27> Prescriptions: No Action esomeprazole magnesium 40 mg capsule,delayed release(DR/EC) 40 mg PO DAILY metoprolol succinate 100 mg tablet extended release 24 hr 100 mg PO DAILY Qty: 30 0RF lisinopril 10 mg tablet 10 mg PO DAILY Qty: 30 2RF diltiazem HCl 120 mg capsule,extended release 24 hr 120 mg PO DAILY furosemide [Lasix] 20 mg tablet 20 mg PO QAM Qty: 90 1RF Eliquis 5 mg tablet 5 mg PO BID Qty: 60 2RF <Nesha Ochoa PA-C - Last Filed: 05/29/24 14:27> Follow-up/Referrals: Lamin,Sarah Desai MD [Primary Care Provider] - <Nesha Ochoa PA-C - Last Filed: 05/29/24 14:27> Time of Disposition: 15:16 <Nesha Ochoa PA-C - Last Filed: 05/29/24 14:27> 15:16 <Km Silva MD - Last Filed: 05/29/24 15:17>
--- OUTSIDE RECORDS SUMMARY | 2024-05-29 15:20 | XMS_ITS | Encounter Summary ---
Author Organization [facility] Address [facility] [place] [address] Care Team Providers Care Medical Research Assistant Name Role Phone Chester Broussard MD Primary Care Provider [phone] Chester Eli MD Unavailable [phone] Johanny Chang NP Unavailable Evy Rivera MD Unavailable + [phone] Wm Berger DO Primary Care Provider [phone] Encounter Details Date Type Department Care Team (Late st Contact Info) Description 09/27/[address] [facility] [address] [place] [address] , Generic Conversion, Social History [...] on filedocumented in this encounter Care Teams Medical Research Assistant Relationship Specialty Start Date End Date Chester Broussard MD [address] [place] [address] PCP - General FAMILY PRACTICE 12/15/15 05/22/20 Wm Berger DO [address] [facility] [address] [place] [address] PCP - General INTERNAL MEDICINE 05/23/20 Chester Eli MD [address] [place] [address] CARDIOVASCULAR DISEASE 12/15/15 1 Johanny Chang NP [address] [place] [address] Nurse Practitioner NURSE PRACTITIONER 11/05/17 05/22/20 Evy Rivera MD [address] [place] [address] [address] [place] [address] Consulting Physician CARDIOVASCULAR DISEASE 02/24/19 documented as of this encounter
--- OUTSIDE RECORDS SUMMARY | 2024-05-29 15:20 | XMS_ITS | Clinical Summary ---
Author Organization [facility] Address [address] [place] [address] Care Team Providers Care Parole Or Probation Officer Name Role Phone Wm Berger DO Primary Care Provider [phone] Allergies Active Allergy Reactions Criticality Noted Date Comments Statins Myalgias 12/15/2015 Medications diltiazem 24 hr (CARDIZEM CD) 120 MG capsule Take 1 tablet by mouth daily. 10/26/2009 Active [place]-3 Fatty Acids (FISH OIL CONCENTRATE) 300 MG [...] Comments Blood Pressure 150/82 05/23/2020 9:05 AM METAL FORGER'S ASSISTANT Pulse 75 05/23/2020 9:05 AM METAL FORGER'S ASSISTANT Temperature 36.6 C (97.8 F) 09/21/2019 1:24 PM CDT Respiratory Rate 20 07/25/2019 10:24 AM CDT Oxygen Saturation 98% 05/23/2020 9:05 AM METAL FORGER'S ASSISTANT Inhaled Oxygen Concentration - - Weight 106.1 kg (234 lb) 05/23/2020 9:05 AM METAL FORGER'S ASSISTANT Height 177.8 cm (5' 10 ) 05/23/2020 9:05 AM METAL FORGER'S ASSISTANT Body Mass Index 33.58 05/23/2020 9:05 AM METAL FORGER'S ASSISTANT Plan of Treatment Health Maintenance Due Date Last Done Comments PHQ-2 (Physician Alutiiq) 1957 Hepatitis C 1963 Annual Medicare Wellness Visit 07/17/2011 Zoster Vaccines (2 of 3) 03/11/2013 01/14/2013 DTaP, Tdap and Td Vaccines (1 - Tdap) 10/20/2016 10/19/2016 RSV Immunization or 60+ Years (1 - 1-dose 75+ series) 2021 COVID-19 Vaccine (1 - season) 2023 Influenza Adult (#1) 2024 01/04/2020, 01/02/2019, 02/04/2018, Additional history exists PHQ-2 (Physician Alutiiq) 04/22/2024 Pneumococcal Vaccine: 65+ Years Completed 12/06/2015, [...] Relevant to Health Maintenance Insurance MED REPLACE [facility] MEDICARE MED REPLACE [facility] MEDICARE Advance Directives Documents on File Type Date Recorded Patient Financial Planning Advisor Expl anation Advance Directives and Living Will 07/25/2016 9:11 AM POA (H) WITH ADVANCE DIRECTIVE Advance Directives and Living Will 06/26/2012 12:00 AM POWER OF TOBACCO HANGER FO R HEALTH CARE Advance Directives and Living Will 06/26/2012 12:00 AM POWER OF TOBACCO HANGER FO R HEALTH CARE Care Teams Parole Or Probation Officer Relationship Specialty Start Date End Date Wm Berger DO [address] [place] [id number] PCP - General INTERNAL MEDICINE 05/23/20
--- OUTSIDE RECORDS SUMMARY | 2024-05-29 15:20 | XMS_ITS | Encounter Summary ---
Author Organization [facility] Address [facility] [place] [address] Care Team Providers Care Ring Barker Operator Name Role Phone Chester Broussard MD Primary Care Provider [phone] Chester Eli MD Unavailable [phone] Johanny Chagn NP Unavailable [phone] Evy Rivera MD Unavailable [phone] Wm Berger DO Primary Care Provider [phone] Encounter Details Date Type Department Care Team (Late st Contact Info) Description 06/28/2015 Abstract [facility] [address] [place] [address] Johnany Chang, JOURNEYMAN ELECTRICIAN [address] [place], [place] [address] Social History Tobacco Use Types Packs/Day Years [...] on filedocumented in this encounter Care Teams Ring Barker Operator Relationship Specialty Start Date End Date Chester Broussard MD [address] [place] [address] PCP - General FAMILY PRACTICE 12/15/15 05/22/20 Wm Berger DO [address] [facility] [address] [place], [place] [id number] PCP - General INTERNAL MEDICINE 05/23/20 Chester Eli MD [address] [place] [address] CARDIOVASCULAR DISEASE 12/15/15 1 Johanny Chang NP [address] [place] [address] Nurse Practitioner NURSE PRACTITIONER 11/05/17 05/22/20 Evy Rivera MD [address] [facility] [address] [place] [phone] Consulting Physician CARDIOVASCULAR DISEASE 02/24/19 documented as of this encounter
--- OUTSIDE RECORDS SUMMARY | 2024-05-29 15:20 | XMS_ITS | Continuity of Care Document ---
Author Organization [facility] Address [address] [place] [phone] Phone Care Team Providers Care Stave Block Splitter Name Role Phone Parrish RAMIREZ, Randall Unavailable Unavaila ble Procedures Procedure Date OFFICE/OUTPATIENT VISIT, EST EYE EXAM, NEW PATIENT Advance Directives Directive Yes / No Effective Date File Name No Information Encounters Encounter Description Practice Location Reason(s) For Visit Diagnoses Date Provider Providers Copied on Encounter OFFICE/OUTPAT IENT VISIT, [facility], [address] [place] [address], [id number], tel:[phone] [facility] No Information 7 Parrish Pereira. [address], [address], [place], [place], [id number], . tel:[phone] Referring Provider: Randall everett, [address] [place] [address], [id number]. tel:[phone] [facility], [address] [place] [address], [id number], tel:[phone] [facility] No Information 7 Parrish Mol. [address], [address] [place] [address], [id number], . tel:[phone] Referring Provider: Randall everett, [address] [place] [address], [id number]. tel:[phone] Family History Family Member Type Diagnosis Age At Onset No Information Payers Payer name Insurance type Covered green party ID Authoriza tion(s) No Information Social [...]
--- OUTSIDE RECORDS SUMMARY | 2024-05-29 15:20 | XMS_ITS | Referral Summary ---
Author Organization [facility] Address [address] [place] [address] Care Team Providers Care Explosive Ordnance Handler Name Role Phone Jeremy Delvalle MD Unavailable [phone] Virgilio Degroot MD Unavailable Cesar Sepulveda MD Primary Care Provider Encounters Date Type Department Care Team Description 03/24/2024 9:30 AM COTTON PULLER Office Visit [facility] Cardiology [address] [facility] [address] [place] [address] Blaine Pringle MD Permanent atrial fibrillation (CMS/HCC) (HCC) (Primary Dx); Other thrombophilia (HCC) 03/10/2024 9:15 AM COTTON PULLER Telemedicine [facility] Virtual Care [address] [place] [address] Alexandra Snider MD Bilateral leg edema (Primary Dx) 03/09/2024 Nurse Triage [facility] Primary Care at [address] [place] [address] Cesar Sepulveda MD from Last 3 Months Allergies Active Allergy Reactions Criticality Noted Date Comments Lwezhsg-Vfu-Cuu Reductase Inhibitors Other (See comments),Headache Low 12/15/2015 [...] inhibitor Nonrheumatic mitral valve regurgitation 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 Has seeing her and has deferred given his increased bleeding risk with the Eliquis Atrial fibrillation ([facility]) 05/15/2022 Assessment & Plan (01/02/2024 5:54 PM [...] PCSK9 inhibitor Coronary artery disease invo lving [place] coronary artery of [place] heart without angina pectoris 05/15/2022 Assessment & [...] if interested. 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] Delvalle MD - 10/18/2023 6:53 AM CDT [facility] Patient Name: Reynold Godinez Procedure Date: 10/18/2023 6:53 AM Date of : 1945 Admit Type: Outpatient Age: 78 Gender: Male Attending MD: Jeremy Delvalle M.D. Room: [facility] RO[facility] 02 Note Status: Finalized [...] The scope was passed under direct vision.The [id number] Colonoscope was introducedthrough the anus and advanced [...] On: 10/18/2023 6:53 AM Recognized by the [employer] for promoting quality [...] AM CDT 12/25/2022 5:53 PM CDT Sarah Kimbel MD LAB MICROBIOLOGY - GEN ERAL ORDERABLES Final Result [address] [place] [address] from Last 3 Months or Most Recently Relevant to Health Maintenance [place] [address] [place] [address] [employer] [place] [address] [place] [address] [employer] [address] [place] [address] Advance Directives For more information, please contact: [phone] * Full Code (Latest Code Status on File) Date Activated Date Inactivated Comments 10/18/2023 6:55 AM 10/18/2023 12:51 PM * Full Code Date Activated Date Inactivated Comments 07/08/2020 9:09 AM 07/08/2020 4:13 PM * Full Code Date Activated Date Inactivated Comments 01/11/2020 9:39 AM 01/11/2020 4:20 PM * Full Code Date Activated Date Inactivated Comments 09/11/2018 1:49 PM 09/12/2018 6:23 PM Care Teams Explosive Ordnance Handler Relationship Specialty Start Date End Date Cesar Sepulveda MD [address] [place] [address] [address] [place] [address] PCP - General Family Medicine 02/25/24 Jeremy Delvalle MD Surgeon Colon and Rectal Surgery 04/07/19 Virgilio Degroot MD [address] [facility] [address] [facility] [address] [place] [address] Allergist/Md Gastroenterology 09/24/19
--- OUTSIDE RECORDS SUMMARY | 2024-05-29 15:20 | XMS_ITS | Clinical Summary ---
Author Organization [facility] Address [address] [place] [address] Care Team Providers Care Parliamentary Librarian Name Role Phone Jeremy Delvalle MD Unavailable [phone] Virgilio Degroot MD Unavailable Cesar Sepulveda MD Primary Care Provider Allergies Active Allergy Reactions Criticality Noted Date Comments Srbrrnc-Agz-Xdq Reductase Inhibitors Other (See comments),Headache Low 12/15/2015 [...] inhibitor Nonrheumatic mitral valve regurgitation 08/02/19 23 intermediate current use of anticoagulant Assessment & Plan (01/02/2024 5:57 PM CDT): Fatigue he has bleeding does have some issues with easier bruising. Has seeing her and has deferred given his increased bleeding risk with the Eliquis Atrial fibrillation ([facility]) 05/15/2022 Assessment & Plan (01/02/2024 5:54 PM [...] PCSK9 inhibitor Coronary artery disease invo lving [place] coronary artery of [place] heart without angina pectoris 05/15/2022 Assessment & [...] if interested. Information was provided on the Pharmacy Development Project in which he would also like [...] (10/12/2019): Added automatically from request for surgery [id number] Rectal tumor 09/02/2018 05/15/2022 Overview (09/02/2018): Added automatically from request for surgery [id number] Thumb pain, left 05/15/2018 05/15/2022 Encounters Date Type Department Care Team Description 03/24/2024 9:30 AM FACTORY LABORER Office Visit [facility] Card[facility] [address] [place] [address] Blaine Pringle MD Permanent atrial fibrillation (CMS/HCC) (HCC) (Primary Dx); Other thrombophilia (HCC) 03/10/2024 9:15 AM FACTORY LABORER Telemedicine [facility] [address] [place] [address] Alexandra Snider MD Bilateral leg edema (Primary Dx) 03/09/2024 Nurse Triage [facility] Primary [facility] at [address] [place] [address] Cesar Sepulveda MD from Last [...] History Date Comments Arthritis Asthma Clotting disorder ([facility]) (HCC) GERD (gastroesophageal reflux disease) Hypercholesteremia Colorectal polyps High blood pressure Gout Arthritis A-fib (CMS/HCC) (HCC) CAD (coronary artery disease) Dementia ([facility]) Allergies Sinusitis Headache Family History Medical History Relation Name Comments Arthritis Father Bakari Clotting disorder Father Bakari Diabetes Father Bakari Heart disease Father Bakari Hyperlipidemia Father Bakari Stroke Father Bakari Dementia Maternal Grandmother Arthritis Mother Loli Clotting disorder Mother Loli Dementia Mother Loli Dementia Paternal Grandmother Relation [...] on file Legal Sex Male 8:38 AM FACTORY LABORER Gender Identity Not on file Sexual Orientation Not on file 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 Not on file Not on file Obstetrics History Last Filed Vital Signs Vital Sign Reading Time Taken Comments Blood Pressure 120/70 03/24/2024 9:39 AM FACTORY LABORER Pulse 78 03/24/2024 9:39 AM FACTORY LABORER Temperature 36.6 C (97.8 F) 01/21/2024 8:21 AM CDT Respiratory Rate 18 02/25/2024 2:11 PM FACTORY LABORER Oxygen Saturation 97% 03/24/2024 9:39 AM FACTORY LABORER Inhaled Oxygen Concentration - - Weight 108.8 kg (239 lb 14.4 oz) 03/24/2024 9:39 AM FACTORY LABORER Height 177.8 cm (5' 10 ) 03/24/2024 9:39 AM FACTORY LABORER Body Mass Index 34.42 03/24/2024 9:39 AM FACTORY LABORER Plan of Treatment Health Maintenance Due Date [...] Delvalle MD - 10/18/2023 6:53 AM CDT [facility] Patient Name: Reynold Godinez Procedure Date: 10/18/2023 6:53 AM Date of : 1945 Admit Type: Outpatient Age: 78 Gender: Male Attending MD: Jeremy Delvalle M.D. Room: [facility] END[facility] ROOM 02 Note Status: Finalized [...] The scope was passed under direct vision.The [id number] Colonoscope was introducedthrough the anus and advanced [...] On: 10/18/2023 6:53 AM Recognized by the [employer] for promoting quality [...] GEN ERAL ORDERABLES Final Result CORNELIO HERNANDEZ [address] [place] [address] from Last 3 Months or Most Recently Relevant to Health Maintenance Insurance AETNA MEDICARE AETNA MEDICARE Advance Directives For more information, please contact: [phone] * Full Code (Latest Code Status on File) Date Activated Date Inactivated Comments 10/18/2023 6:55 AM 10/18/2023 12:51 PM * Full Code Date Activated Date Inactivated Comments 07/08/2020 9:09 AM 07/08/2020 4:13 PM * Full Code Date Activated Date Inactivated Comments 01/11/2020 9:39 AM 01/11/2020 4:20 PM * Full Code Date Activated Date Inactivated Comments 09/11/2018 1:49 PM 09/12/2018 6:23 PM Care Teams Parliamentary Librarian Relationship Specialty Start Date End Date Cesar Sepulveda MD [address] [place] [address] [address] [place] [address] PCP - General Family Medicine 02/25/24 Jeremy Delvalle MD Surgeon Colon and Rectal Surgery 04/07/19 Virgilio Degroot MD [address] [facility] [address] [place] [address] Equipment Service Engineer Gastroenterology 09/24/19
--- OUTSIDE RECORDS SUMMARY | 2024-05-29 15:20 | XMS_ITS | Encounter Summary ---
Author Organization [facility] Address [facility]ly [facility] [place] [address] Care Team Providers Care Leave Specialist Name Role Phone Chester Broussard MD Primary Care Provider [phone] Chester Eli MD Unavailable [phone] Johanny Chang NP Unavailable Evy Rivera MD Unavailable [phone] Wm Berger DO Primary Care Provider [phone] Encounter Details Date Type Department Care Team (Late st Contact Info) Description 12/15/2015 Abstract [facility] [address] [place] [address] Zaria Vidales RN Social History Tobacco Use [...] on filedocumented in this encounter Care Teams Leave Specialist Relationship Specialty Start Date End Date Chester Broussard MD [address] [place] [address] PCP - General FAMILY PRACTICE 12/15/15 05/22/20 Wm Berger DO [address] [address] [place] [address] PCP - General INTERNAL MEDICINE 05/23/20 Chester Eli MD [address] [place] [address] CARDIOVASCULAR DISEASE 12/15/15 1 Johanny Chang NP [address] [place] [address] Nurse Practitioner NURSE PRACTITIONER 11/05/17 05/22/20 Evy Rivera MD [address] [facility] [address] [place] [address] Consulting Physician CARDIOVASCULAR DISEASE 02/24/19 documented as of this encounter
[2024-05-29 15:34] VITALS: BP 137/84; PULSE 74; RESP 18; TEMP 36.9; O2SAT 99
== END 2024-05-29 15:36 | disposition home or self-care (01) ==
LOC: ANHED 15:18
PROVIDERS: Emergency Provider Student in an Organized Health Care Education/Training Program; PCP Family Medicine Sports Medicine
DX: S93.402A Sprain of unspecified ligament of left ankle, initial encounter (principal); W06.XXXA Fall from bed, initial encounter; K21.9 Gastro-esophageal reflux disease without esophagitis; E78.5 Hyperlipidemia, unspecified; I10 Essential (primary) hypertension; I48.91 Unspecified atrial fibrillation; Z87.891 Personal history of nicotine dependence; M10.9 Gout, unspecified
CPT/HCPCS: 73610; 73630; 99283

== ENCOUNTER 2025-02-13 02:10 | Emergency (ER) | payer MEDICARE, SELFPAY ==
--- OUTSIDE RECORDS SUMMARY | 2016-10-02 03:15 | XMS_ITS | Continuity of Care Document ---
Author Organization [facility] Address [address] [place] [id number] Phone Care Team Providers Care Database Marketing Manager Name Role Phone Parrish RAMIREZ, Randall Unavailable Unavaila ble Procedures Procedure Date OFFICE/OUTPATIENT VISIT, [facility] EYE EXAM, NEW PATIENT Advance Directives Directive Yes / No Effective Date File Name No Information Encounters Encounter Description Practice Location Reason(s) For Visit Diagnoses Date Provider Providers Copied on Encounter OFFICE/OUTPAT IENT VISIT, [facility], [address] [place] [address], [id number], tel:[phone] [facility] No Information 7 Parrish Pereira. [address], [address], [place], [place], [id number], . tel:[phone] Referring Provider: Randall everett, [address] [place] [address], [id number] . tel:[phone] [facility], [address] [place] [address], [id number], tel:[phone] [facility] No Information 7 Parrish Pereira. [address], [address], [place], [place], [id number], . tel:[phone] Referring Provider: Randall everett, [address], [place], [address] . tel:[phone] Family History Family Member Type Diagnosis Age At Onset No Information Payers Payer name Insurance type Covered alliance party ID Authoriza tion(s) No Information Social History Type Description Quantity Date Captured Comments Sex Male Smoking Status No Information Chief Complaint And Reason For Visit No Information Reason For Referral Reason For Referral No Information History Of Present Illness Encounter Date Complaint History Of Prese nt Illness No Information Functional Status Date Functional Assessmen t No Information Instructions Date Instruction Additional Infor mation No Information Assessments Type Assessment Date No Information Patient Care Teams Name Effective Dates (start - stop) Status Members No Information
--- NOTE | ~2025-02-13 | CT_ITS ---
CT HEAD NON-CONTRAST CT C-SPINE Clinical History: fall, on thinners Comparison: CT brain 01/26/2021 Technique: Unenhanced axial images skull base to vertex. Coronal, sagittal reformats. Axial images thoracic inlet to skull base. Sagittal and coronal reformats. CT images acquired with automatic exposure control for dose reduction DLP: 605 mGy-cm Findings: Head: Age-related atrophy. Mild white matter changes from chronic microvascular ischemic disease. Sulci, ventricles: Unremarkable. No intracerebral hemorrhage. No evidence acute territorial infarct. No mass effect, midline shift, intra-/extra-axial fluid collection. Bony calvarium intact. Visualized paranasal sinuses: Clear. Mastoid air cells: Clear. C-spine: No acute fracture. Grade 1 anterolisthesis C4 on 5, C6 on 7. Moderate degenerative changes. Disc spaces maintained. Prevertebral soft tissues within normal limits. Visualized lung apices: Emphysema. Visualized thyroid: Unremarkable. No enlarged cervical nodes. IMPRESSION: HEAD: 1. No acute intracranial findings. C-SPINE: 1. No acute fracture. Reviewed, dictated and finalized at location R. IMPRESSION: HEAD: 1. No acute intracranial findings. C-SPINE: 1. No acute fracture.
--- NOTE | ~2025-02-13 | XR_ITS ---
Examination: XR hip RT 2V w AP pelvis Clinical History: fall, r hip pain Comparison: None Technique: 2 views right hip with AP pelvis Findings/impression: 1. No fracture or dislocation right hip. 2. No pelvic fracture identified. Reviewed, dictated and finalized at location R.
--- NOTE | ~2025-02-13 | XR_ITS ---
Examination: XR shoulder RT min 2V Clinical History: fall, right shoulder pain Comparison: None Technique: 3 views right shoulder Findings/impression: 1. No fracture or dislocation right shoulder. Reviewed, dictated and finalized at location R.
[2025-02-13 02:10] VITALS: BP 116/71; PULSE 92; RESP 14; TEMP 36.8; O2SAT 98
[2025-02-13 02:33] VITALS: BP 132/78; PULSE 95; RESP 14; O2SAT 98
--- NOTE | 2025-02-13 02:35 | ED.FALL ---
HPI - Fall General Chief Complaint: Fall Stated Complaint: fall Time Seen by Provider: 02/13/25 02:29 Source: patient Mode of arrival: EMS Limitations: no limitations History of Present Illness HPI Narrative: This is a 79-year-old male with history of Alzheimer's, CKD, AFib, hyperlipidemia, hypertension who presents to the ED for a fall. Patient states that he was walking when he slipped on a metal grate causing him to fall onto his right side injuring his right shoulder and right hip. He is unsure if he hit his head. He is on Eliquis. Denies loss of consciousness. He has not been able to bear weight to his right lower extremity since then. Related Data Home Medications ?Medication ?Instructions ?Recorded ?Confirmed ?Last Taken ?Type esomeprazole magnesium 40 mg 40 mg PO DAILY 04/04/21 04/12/22 Unknown History capsule,delayed release diltiazem HCl 120 mg capsule,24 120 mg PO DAILY 03/23/22 04/12/22 Unknown History hr,extended release Allergies Allergy/AdvReac Type Severity Reaction Status Date / Time [id number]-[id number]-FqF Reductase Allergy Unknown Unknown Verified 02/13/25 04:16 Inhibitor Review of Systems Review of Systems: Gen.: Denies fevers or chills Eyes: Denies eye pain or visual change ENT: Denies congestion Respiratory: Denies shortness of breath or cough CV: Denies chest pain or palpitations GI: Denies abdominal pain nausea, emesis or diarrhea denies burning, urgency, frequency or hematuria Musculoskeletal: As per HPI Neuro: Denies numbness, tingling, weakness or focal weakness Skin: Denies rash Except as documented, all other systems reviewed and negative [facility] Past Medical History Medical History Gout Screening for colon cancer Atrial fibrillation Gastroesophageal reflux disease Hyperlipidemia Hypertension Surgical History Surgical History Hx of cholecystectomy Family History Family History Father , stroke, diabetes, heart problems Heart disease Social History Social History Smoking packs per day: 1 Smoking cigarettes per day: 20.0 Years smoked: 14 Smoking pack-years: 14.00 Smoking status: Former smoker Tobacco type: cigarettes Second hand tobacco smoke exposure: No Smoking end date: 04/22/89 Alcohol intake: current Drinks per week: 3 Alcohol use details: beer Substance use: never Substance use type: does not use Lack of Transportation: No Lack of Food: Never True Current Housing: I Have Housing Concerned About Future Housing: No Difficulty Paying Gas/Electric Bills: No Difficulty Paying for Meds: No Currently Unemployed: No Education: Bachelor's Degree Difficulty w/ Childcare or Family Care: No Exam Narrative: APPEARANCE: No acute distress, nontoxic, resting in bed EYES: EOMI HEENT: Normocephalic, atraumatic, OMM RESPIRATORY: No respiratory distress Clear to auscultation bilaterally with no rhonchi wheezing or rales. CARDIOVASCULAR: Regular rate and rhythm without murmurs rubs or gallops. ABDOMINAL: Soft, nontender, nondistended, no rebound or guarding MUSCULOSKELETAl: Moves all extremities. Mild tenderness to palpation over the right greater trochanter. A mild pain with passive range of motion, does occasionally right lower extremity without any obvious difficulty. No clubbing, cyanosis or edema. Tenderness palpation over the right glenohumeral joint no mass no crepitus. Tenderness over the right trapezius muscle. NEURO: Awake and alert. Following commands, speech normal, no focal deficits SKIN:: Warm, dry. No rashes lesions or abrasions PSYCHIATRIC: Normal affect/mood, Course Vital Signs Vital signs: Vital Signs Temperature 98.2 F 02/13/25 02:10 Pulse Rate 92 02/13/25 02:10 Respiratory Rate 14 02/13/25 02:10 Blood Pressure 116/71 02/13/25 02:10 Pulse Oximetry 98 02/13/25 02:10 Oxygen Delivery Room Air 02/13/25 02:10 Temperature 98.2 F 02/13/25 02:10 Pulse Rate 95 02/13/25 02:33 Respiratory Rate 14 02/13/25 02:33 Blood Pressure 132/78 02/13/25 02:33 Pulse Oximetry 98 02/13/25 02:33 Oxygen Delivery Room Air 02/13/25 02:10 MDM - Fall MDM Narrative Medical decision making narrative: 79-year-old male presenting for a fall. On initial evaluation, patient was in no acute distress, afebrile, hemodynamically stable. He did have tenderness over the right greater trochanter and over the right glenohumeral joint. He was able to move the right leg without difficulty. Neurovascularly intact distally. CT head and C-spine showed no acute process. X-rays revealed no fractures. Patient was able to ambulate with walker at baseline to the bathroom without significant difficulties. I confirmed this with family that this is his baseline. Patient was deemed appropriate discharge back to halfway at this time. He was advised to discuss the p.r.n. pain medications that he has available at the halfway for further pain management. Patient was agreeable to this plan. Given strict return precautions. Differential Diagnosis Differential diagnosis: Likely other (Intracranial hemorrhage, contusion, hip fracture, shoulder fracture, sprain, strain) Medical Records Attestation: I reviewed the patient's medical records. Imaging Data Attestation: I personally reviewed and interpreted this imaging study as follows: My impression: X-ray shoulder: No fracture or dislocation X-ray hip/pelvis: No fracture or dislocation Radiologist's impression: Impressions Cervical Spine CT 02/13/25 07:41 IMPRESSION: HEAD: 1. No acute intracranial findings. C-SPINE: 1. No acute fracture. Head CT 02/13/25 07:41 IMPRESSION: HEAD: 1. No acute intracranial findings. C-SPINE: 1. No acute fracture. Discharge Plan Discharge Clinical Impression: Fall Qualifiers: Encounter type: initial encounter Qualified Code(s): W19.XXXA - Unspecified fall, initial encounter Contusion of hip Qualifiers: Encounter type: initial encounter Laterality: right Qualified Code(s): S70.01XA - Contusion of right hip, initial encounter Patient Disposition: Home Condition: Stable Instructions: Antibiotic Form, Contusion in Adults (ED) Additional Instructions: Take Tylenol and ibuprofen for pain. Follow up with her PCP in the next week for re-evaluation. Return the ED for any new or worsening symptoms. Patient Language: Lao Prescriptions: No Action esomeprazole magnesium 40 mg capsule,delayed release(DR/EC) 40 mg PO DAILY metoprolol succinate 100 mg tablet extended release 24 hr 100 mg PO DAILY Qty: 30 0RF lisinopril 10 mg tablet 10 mg PO DAILY Qty: 30 2RF diltiazem HCl 120 mg capsule,extended release 24 hr 120 mg PO DAILY furosemide [Lasix] 20 mg tablet 20 mg PO QAM Qty: 90 1RF Eliquis 5 mg tablet 5 mg PO BID Qty: 60 2RF Follow-up/Referrals: Lamin,Sarah Desai MD [Primary Care Provider, Unknown] Stand Alone Forms: Prison Discharge
--- OUTSIDE RECORDS SUMMARY | 2025-02-13 02:57 | XMS_ITS ---
Author Organization [facility] Address [address] [place] [address] Care Team Providers Care Charge Weigher Name Role Phone Jeremy Delvalle MD Unavailable Virgilio Degroot MD Unavailable Blaine Pringle MD Unavailable [phone] Prakash Mejia [employer]TER Unavailable [phone] Jesus Alberto Arriola MD PhD Unavailable [phone] Cesar Sepulveda MD Primary Care Provider Reynold Tadeo MD Unavailable Active Problems Problem Noted Date Diagnosed Date Abnormality of gait and mobility 01/12/2025 Assessment & Plan (01/18/2025 12:30 AM CDT): - At risk for falls or injury - Ambulating with the use of a walker Lower extremity edema 11/09/2024 Assessment & Plan (11/16/2024 3:15 PM CDT): Moderate edema, no skin changes. Purportedly baseline per patient and daughter, chronic for years. - Compression wrap, monitor - Gave 1 dose of Lasix p.o. on 11/14 Assessment & Plan (11/15/2024 4:28 PM CDT): Moderate edema, no skin changes. Purportedly baseline per patient and daughter, chronic for years. - Compression wrap, monitor - Gave 1 dose of Lasix p.o. on 11/14 Assessment & Plan (11/14/2024 3:01 PM CDT): Moderate edema, no skin changes. Purportedly baseline per patient and daughter, chronic for years. - Compression wrap, monitor - Give 1 dose of Lasix p.o. Assessment & Plan (11/13/2024 7:20 PM CDT): Moderate edema, no skin changes. Purportedly baseline per patient and daughter, chronic for years. - Compression wrap, monitor - Give 1 dose of Lasix p.o. for - Re-evaluate and consider evaluation for cause after obtaining further history Assessment & Plan (11/12/2024 6:21 PM CDT): Moderate edema, no skin changes. Purportedly baseline per patient and daughter, chronic for years. - Compression wrap, monitor - Re-evaluate and consider evaluation for cause after obtaining further history Assessment & Plan (11/11/2024 7:48 PM CDT): Moderate edema, no skin changes. Purportedly baseline per patient and daughter, chronic for years. - Compression wrap, monitor - Re-evaluate and consider evaluation for cause after obtaining further history Assessment & Plan (11/10/2024 8:29 PM CDT): Moderate edema, no skin changes. Purportedly baseline per patient and daughter, chronic for years. - Compression wrap, monitor - Re-evaluate and consider evaluation for cause after obtaining further history Assessment & Plan (11/09/2024 10:13 PM CDT): Moderate edema, no skin changes. Purportedly baseline per patient and daughter, chronic for years. - Compression wrap, monitor - Re-evaluate and consider evaluation for cause after obtaining further history Urine retention 10/13/2024 Assessment & Plan (10/18/2024 8:18 AM CDT): Placed joyce for urinary retention -Started flomax, incerased to 0.8 -Failed TOV two times, discharging w [facility] and urology referral Assessment & Plan (10/17/2024 9:40 AM CDT): Placed joyce for urinary retention -Started flomax, incerased to 0.8 -Failed TOV two times, discharging w [facility] and urology referral Assessment & Plan (10/16/2024 9:20 AM CDT): Placed joyce for urinary retention -Started flomax, incerased to 0.8 -TOV again today -if fails TOV, will need to DC w/ joyce and will give urology referral Assessment & Plan (10/15/2024 12:18 PM CDT): Placed joyce for urinary retention -Started flomax -TOV today Assessment & Plan (10/14/2024 10:25 AM CDT): Placed joyce for urinary retention -Started flomax -will plan for TOV Assessment & Plan (10/13/2024 12:27 PM CDT): Placed joyce for urinary retention. Started flomax Anal cancer 09/29/2024 Cancer Staging:Clinical:Stage IIIA(cT3, cN0, cM0) - Signed by Reynold Tadeo MD on 10/01/2024 Overview (01/12/2025): Pathology 10/14 Diagnosis: A. Anus, mass, biopsy: - Invasive squamous cell carcinoma, well-differentiated. - See comment. Assessment & Plan (01/18/2025 12:30 AM CDT): Malignant neoplasm of anus, status post chemoradiation with radiation-induced perianal skin wounds Status post six weeks of radiation and two weeks of in-house chemotherapy for anal cancer. Radiation-induced perianal skin wounds present, with delayed healing. No significant rectal bleeding reported, though possible blood in stool not ruled out. - Examined perianal area to assess wound healing, still has raw skin that need continued wound care - Continue wound care with Silvadene at nursing facility - Schedule MRI in two months - Pathology 10/14 Diagnosis: A. Anus, mass, biopsy: - Invasive squamous cell carcinoma, well-differentiated. - See comment. - following with hematology/oncology Assessment & Plan (11/16/2024 3:15 PM CDT): Diagnosed 08/2024. T3, no evidence of metastasis. Admitted for C2 of 5FU- mitomycin, ongoing radiation. He did well with C1. No interval concerns. Radiation ongoing with plan for 30 fx - Continue loperamide 4mg PRN daily with additional 2mg PRN for each subsequent substantial loose BM - Aquafor to perianal area, sitz baths - Silvadene treatment along areas of wet desquamation - 5FU-mitomycin C2 as per oncology (Through PICC line - Placed on 11/10) - As per oncology-completed chemotherapy cycle 11/14 - Oncology will do outpatient follow up until completion Assessment & Plan (11/15/2024 12:02 PM CDT): Diagnosed 08/2024. T3, no evidence of metastasis. Admitted for C2 of 5FU- mitomycin, ongoing radiation. He did well with C1. No interval concerns. Radiation ongoing with plan for 30 fx - Continue loperamide 4mg PRN daily with additional 2mg PRN for each subsequent substantial loose BM - Aquafor to perianal area, sitz baths - Silvadene treatment along areas of wet desquamation - 5FU-mitomycin C2 as per oncology (Through PICC line - Placed on 11/10) - As per oncology-completed chemotherapy cycle 11/14 - Oncology will do outpatient follow up until completion Assessment & Plan (11/14/2024 3:01 PM CDT): Diagnosed 08/2024. T3, no evidence of metastasis. Admitted for C2 of 5FU- mitomycin, ongoing radiation. He did well with C1. No interval concerns. Radiation ongoing with plan for 30 fx - Continue loperamide 4mg PRN daily with additional 2mg PRN for each subsequent substantial loose BM - Aquafor to perianal area, sitz baths - Silvadene treatment along areas of wet desquamation - 5FU-mitomycin C2 as per oncology (Through PICC line - Placed on 11/10) - As per oncology-completed chemotherapy cycle 11/14 - Oncology will do outpatient follow up until completion Assessment & Plan (11/13/2024 7:20 PM CDT): Diagnosed 08/2024. T3, no evidence of metastasis. Admitted for C2 of 5FU- mitomycin, ongoing radiation. He did well with C1. No interval concerns. Radiation ongoing with plan for 30 fx - Continue loperamide 4mg PRN daily with additional 2mg PRN for each subsequent substantial loose BM - Aquafor to perianal area, sitz baths - Silvadene treatment along areas of wet desquamation - 5FU-mitomycin C2 as per oncology (Through PICC line - Placed on 11/10) - So far tolerating Chemotherapy well - Daily CBC and CMP Assessment & Plan (11/12/2024 6:21 PM CDT): Diagnosed 08/2024. T3, no evidence of metastasis. Admitted for C2 of 5FU- mitomycin, ongoing radiation. He did well with C1. No interval concerns. Radiation ongoing with plan for 30 fx - Continue loperamide 4mg PRN daily with additional 2mg PRN for each subsequent substantial loose BM - Aquafor to perianal area, sitz baths - Silvadene treatment along areas of wet desquamation - 5FU-mitomycin C2 as per oncology (Through PICC line - Placed on 11/10) - So far tolerating Chemotherapy well - Daily CBC and CMP Assessment & Plan (11/11/2024 7:48 PM CDT): Diagnosed 08/2024. T3, no evidence of metastasis. Admitted for C2 of 5FU- mitomycin, ongoing radiation. He did well with C1. No interval concerns. Radiation ongoing with plan for 30 fx - Continue loperamide 4mg PRN daily with additional 2mg PRN for each subsequent substantial loose BM - Aquafor to perianal area, sitz baths - Silvadene treatment along areas of wet desquamation - 5FU-mitomycin C2 as per oncology (Through PICC line - Placed on 11/10) - So far tolerating Chemotherapy well Assessment & Plan (11/10/2024 8:29 PM CDT): Diagnosed 08/2024. T3, no evidence of metastasis. Admitted for C2 of 5FU- mitomycin, ongoing radiation. He did well with C1. No interval concerns. Radiation ongoing with plan for 30 fx - Continue loperamide 4mg PRN daily with additional 2mg PRN for each subsequent substantial loose BM - Aquafor to perianal area, sitz baths - Silvadene treatment along areas of wet desquamation - 5FU-mitomycin C2 as per oncology (Through PICC line - Placed on 11/10) Assessment & Plan (11/09/2024 10:03 PM CDT): Diagnosed 08/2024. T3, no evidence of metastasis. Admitted for C2 of 5FU- mitomycin, ongoing radiation. He did well with C1. No interval concerns. - CBC, CMP tomorrow a.m. 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 Received Radiation today Being admitted for chemotherapy with likely 5-FU + mitomycin + RT Consult Oncology Monitor electrolytes GERD (gastroesophageal reflux disease) Assessment & Plan (01/18/2025 12:30 AM CDT): - chronic condition, stable status - continue with Nexium 40 mg daily The current medical regimen is effective; continue present plan and medications. Assessment & Plan (11/16/2024 3:15 PM CDT): Continue home esemeprazole Assessment & Plan (11/15/2024 12:02 PM CDT): Continue home esemeprazole Assessment & Plan (11/14/2024 11:29 AM CDT): Continue home esemeprazole Assessment & Plan (11/13/2024 7:20 PM CDT): Continue home esemeprazole Assessment & Plan (11/12/2024 6:21 PM CDT): Continue home esemeprazole Assessment & Plan (11/11/2024 7:48 PM CDT): Continue home esemeprazole Assessment & Plan (11/10/2024 8:29 PM CDT): Continue home esemeprazole Assessment & Plan (11/09/2024 10:03 PM CDT): Continue home esemeprazole Assessment & Plan (07/09/2024 9:20 AM CDT): - chronic condition, stable status - continue with Nexium 40 mg daily - continue current management Chronic low back pain 07/09/2024 Overview (08/19/2024): Follows with [facility] Assessment & Plan (01/18/2025 12:30 AM CDT): - chronic condition, stable status - follows with [facility] - pain management for chronic low back pain - has tramadol for use PRN - continue current management per pain management provider Assessment & Plan (08/19/2024 9:02 AM CDT): - chronic condition, stable status - follows with [facility] - pain management for chronic low back pain - has tramadol for use PRN - continue current management Assessment & Plan (07/09/2024 9:24 AM CDT): - chronic condition, stable status - follows with [facility] - pain management for chronic low back pain - continue current management Sensorineural hearing loss (SNHL) of both ears 1 Overview (01/12/2025): - declines wearing hearing aids Assessment & Plan (01/18/2025 12:30 AM CDT): - evaluated by ENT and noted to have moderate to severe hearing loss - declines wearing hearing aids at this time Assessment & Plan (07/09/2024 9:22 AM CDT): - evaluated by ENT and noted to have moderate to severe hearing loss - declines wearing hearing aids at this time Assessment & Plan (01/21/2024 9:21 AM CDT): Referral to audiology for possible need of hearing aids. History of colon polyps 07/23/2023 Urinary frequency 07/02/2023 Assessment & Plan (01/18/2025 12:30 AM CDT): - chronic condition, improved - Some of his nocturnal symptoms have improved with starting tamsulosin. - during past hospital stay his tamsulosin was increased to 0.8 mg for concern for urinary retension 11/2024 The current medical regimen is effective; continue present plan and medications. Assessment & Plan (07/09/2024 8:49 AM CDT): Some of his nocturnal symptoms have improved with starting tamsulosin. We will continue as it seems to be helping some. Monitor Assessment & Plan (07/02/2023 4:49 PM CDT): Some of his nocturnal symptoms have improved with starting tamsulosin. We will continue as it seems to be helping some. Monitor Statin intolerance 12/25/2022 Assessment & Plan (01/18/2025 12:30 AM CDT): - chronic condition, not at goal of <70 LDL - most recent LDL as shown below - currently on Ezetimibe only - has known CAD, follows with Cardiology Lab Results Component Value Date LDLCALC 87 01/12/2025 Assessment & Plan (07/09/2024 8:51 AM CDT): - chronic condition, not at goal of <70 LDL - most recent LDL as shown below - currently on Ezetimibe only - has known CAD, follows with Cardiology Lab Results Component Value Date LDLCALC 90 01/11/2024 Assessment & Plan (01/02/2024 5:56 PM CDT): On ezetimibe instead. Continue Assessment & Plan (07/02/2023 4:48 PM CDT): Started on ezetimibe in the fall for cholesterol. If unable to achieve appropriate control then we may consider seeing if insurance will cover a PCSK9 inhibitor Nonrheumatic mitral valve regurgitation 08/02/19 Assessment & Plan (07/09/2024 5:01 PM CDT): - chronic, followed by cardiology - most recent echo as shown below Echo 11/2022 Conclusions: Normal left ventricular systolic function. No focal wall motion abnormalities. Normal left ventricular size. Mild concentric left ventricular hypertrophy. Diastolic dysfunction is present. Ejection fraction is measured at 55 %. There is severe enlargement of left atrium. Moderate mitral valve regurgitation. There is no hemodynamically significant mitral stenosis by Doppler. Mild to moderate aortic stenosis. Mean gradient of 4.0 mmHg. Valve area of 1.4 cm2. Aortic cusps appear moderately sclerotic. Trileaflet aortic valve. Trace to mild aortic valve regurgitation. Estimated peak RVSP is 45 mmHg. Mild to moderate tricuspid regurgitation. [facility] current use of anticoagulant Assessment & Plan (11/16/2024 3:15 PM CDT): above Assessment & Plan (11/15/2024 12:02 PM CDT): above Assessment & Plan (11/14/2024 11:29 AM CDT): above Assessment & Plan (11/13/2024 7:20 PM CDT): above Assessment & Plan (11/12/2024 6:21 PM CDT): above Assessment & Plan (11/11/2024 7:48 PM CDT): above Assessment & Plan (11/10/2024 8:29 PM CDT): above Assessment & Plan (11/09/2024 10:03 PM CDT): above Assessment & Plan (01/02/2024 5:57 PM CDT): Fatigue he has bleeding does have some issues with easier bruising. Has seeing her and has deferred given his increased bleeding risk with the Eliquis Permanent atrial fibrillation 05/15/2022 Assessment & Plan (01/18/2025 12:30 AM CDT): Chronic. Controlled. Continue diltiazem, metoprolol, and anticoagulated with Eliquis. Follows with Cardiology for decades. Continue risk factor modification. The current medical regimen is effective; continue present plan and medications. Echo 11/2022 Conclusions: Normal left ventricular systolic function. No focal wall motion abnormalities. Normal left ventricular size. Mild concentric left ventricular hypertrophy. Diastolic dysfunction is present. Ejection fraction is measured at 55 %. There is severe enlargement of left atrium. Moderate mitral valve regurgitation. There is no hemodynamically significant mitral stenosis by Doppler. Mild to moderate aortic stenosis. Mean gradient of 4.0 mmHg. Valve area of 1.4 cm2. Aortic cusps appear moderately sclerotic. Trileaflet aortic valve. Trace to mild aortic valve regurgitation. Estimated peak RVSP is 45 mmHg. Mild to moderate tricuspid regurgitation. Lab Results Component Value Date TSH 1.91 07/09/2024 Orders: CBC without differential; Future Comprehensive metabolic panel; Future Lipid panel; Future Uric acid; Future Assessment & Plan (11/16/2024 3:15 PM CDT): Continue home apixaban, Metoprolol on Hold for Hypotension Assessment & Plan (11/15/2024 4:28 PM CDT): Continue home apixaban, Metoprolol on Hold for Hypotension Assessment & Plan (11/14/2024 11:29 AM CDT): Continue home apixaban Assessment & Plan (11/13/2024 7:20 PM CDT): Continue home apixaban Assessment & Plan (11/12/2024 6:21 PM CDT): Continue home apixaban Assessment & Plan (11/11/2024 7:48 PM CDT): Continue home apixaban Assessment & Plan (11/10/2024 8:29 PM CDT): Continue home apixaban Assessment & Plan (11/09/2024 10:03 PM CDT): Continue home apixaban Assessment & Plan (10/18/2024 8:18 AM CDT): Home meds :diltiazem 120 mg, metoprolol XL 100 mg , eliquis 5 mg twice daily Assessment & Plan (10/17/2024 8:09 AM CDT): Home meds :diltiazem 120 mg, metoprolol XL 100 mg , eliquis 5 mg twice daily Assessment & Plan (10/16/2024 7:34 AM CDT): Home meds :diltiazem 120 mg, metoprolol XL 100 mg , eliquis 5 mg twice daily Assessment & Plan (10/15/2024 7:30 AM CDT): Home meds :diltiazem 120 mg, metoprolol XL 100 mg , eliquis 5 mg twice daily Assessment & Plan (10/14/2024 7:30 AM CDT): Home meds :diltiazem 120 mg, metoprolol XL 100 mg , eliquis 5 mg twice daily Assessment & Plan (10/13/2024 7:26 AM CDT): Home meds :diltiazem 120 mg, metoprolol XL 100 mg , eliquis 5 mg twice daily Assessment & Plan (10/12/2024 5:19 PM CDT): Home meds :diltiazem 120 mg, metoprolol XL 100 mg , eliquis 5 mg twice daily Assessment & Plan (07/09/2024 9:23 AM CDT): Chronic. Controlled. Continue diltiazem, metoprolol, and Eliquis. Follows with Cardiology for decades. Continue risk factor modification. Echo 11/2022 Conclusions: Normal left ventricular systolic function. No focal wall motion abnormalities. Normal left ventricular size. Mild concentric left ventricular hypertrophy. Diastolic dysfunction is present. Ejection fraction is measured at 55 %. There is severe enlargement of left atrium. Moderate mitral valve regurgitation. There is no hemodynamically significant mitral stenosis by Doppler. Mild to moderate aortic stenosis. Mean gradient of 4.0 mmHg. Valve area of 1.4 cm2. Aortic cusps appear moderately sclerotic. Trileaflet aortic valve. Trace to mild aortic valve regurgitation. Estimated peak RVSP is 45 mmHg. Mild to moderate tricuspid regurgitation. Lab Results Component Value Date TSH 2.670 01/11/2024 Assessment & Plan (01/02/2024 5:54 PM CDT): Chronic. Controlled. Continue diltiazem, metoprolol, and Eliquis. Continue risk factor modification. Assessment & Plan (07/02/2023 4:46 PM CDT): Chronic. Controlled. Continue anticoagulation with Eliquis and diltiazem. Primary hypertension 05/15/2022 Assessment & Plan (01/18/2025 12:30 AM CDT): BP Readings from Last 3 Encounters: 01/12/25 122/82 12/01/24 128/65 11/27/24 130/89 Chronic. Blood pressure well-controlled with current regimen. No longer on lisinopril, diltiazem --> stopped during past hospital stay with hypotension Only on metoprolol XL 25 mg daily as he has known afib He has known CAD, Atrial fibrillation The current medical regimen is effective; continue present plan and medications. Orders: CBC without differential; Future Comprehensive metabolic panel; Future Assessment & Plan (11/16/2024 3:15 PM CDT): Holding home regimen including lisinopril 10mg, metoprolol 100mg, diltiazem 120mg Assessment & Plan (11/15/2024 4:28 PM CDT): Holding home regimen including lisinopril 10mg, metoprolol 100mg, diltiazem 120mg Assessment & Plan (11/14/2024 11:29 AM CDT): Continue home regimen including lisinopril 10mg, metoprolol 100mg, diltiazem 120mg Assessment & Plan (11/13/2024 7:20 PM CDT): Continue home regimen including lisinopril 10mg, metoprolol 100mg, diltiazem 120mg Assessment & Plan (11/12/2024 6:21 PM CDT): Continue home regimen including lisinopril 10mg, metoprolol 100mg, diltiazem 120mg Assessment & Plan (11/11/2024 7:48 PM CDT): Continue home regimen including lisinopril 10mg, metoprolol 100mg, diltiazem 120mg Assessment & Plan (11/10/2024 8:29 PM CDT): Continue home regimen including lisinopril 10mg, metoprolol 100mg, diltiazem 120mg Assessment & Plan (11/09/2024 10:03 PM CDT): Continue home regimen including lisinopril 10mg, metoprolol 100mg, diltiazem 120mg Assessment & Plan (10/18/2024 8:18 AM CDT): CAD, HLD, HTN on lisinopril 10 mg, zetia 10 mg -Held lasix 20 given uptrending BUN, will stop on discharge Follows with cardiology, Dr. Pringle Assessment & Plan (10/17/2024 9:40 AM CDT): CAD, HLD, HTN on lisinopril 10 mg, zetia 10 mg -held lasix 20 given uptrending BUN, will stop on discharge Follows with cardiology, Dr. Pringle Assessment & Plan (10/16/2024 9:20 AM CDT): CAD, HLD, HTN on lisinopril 10 mg, zetia 10 mg -held lasix 20 given uptrending BUN Follows with cardiology, Dr. Pringle Assessment & Plan (10/15/2024 7:30 AM CDT): CAD, HLD, HTN on lisinopril 10 mg, furosemide 20 mg, zetia 10 mg Follows with cardiology, Dr. Pringle Assessment & Plan (10/14/2024 7:30 AM CDT): CAD, HLD, HTN on lisinopril 10 mg, furosemide 20 mg, zetia 10 mg Follows with cardiology, Dr. Pringle Assessment & Plan (10/13/2024 7:26 AM CDT): CAD, HLD, HTN on lisinopril 10 mg, furosemide 20 mg, zetia 10 mg Follows with cardiology, Dr. Pringle Assessment & Plan (10/12/2024 5:19 PM CDT): CAD, HLD, HTN on lisinopril 10 mg, furosemide 20 mg, zetia 10 mg Follows with cardiologyDr. Pringle Assessment & Plan (07/09/2024 9:21 AM CDT): BP Readings from Last 3 Encounters: 07/09/24 134/74 03/24/24 120/70 01/21/24 147/83 Chronic. Blood pressure well-controlled with current regimen. Continue lisinopril, metoprolol, diltiazem. Monitor He has known CAD, Atrial fibrillation Recheck labs, order placed Assessment & Plan (01/02/2024 5:55 PM CDT): Chronic. Blood pressure well-controlled with current regimen. Continue lisinopril, metoprolol, diltiazem. Monitor Assessment & Plan (07/02/2023 4:47 PM CDT): Chronic. HTN controlled. Cont prescription Rx. Low sodium diet (DASH or Mediterranean), exercise, wt loss (if over weight) discussed Pure hypercholesterolemia 05/15/2022 Assessment & Plan (01/18/2025 12:30 AM CDT): - chronic condition, not at goal of <70 LDL - hx of statin intolerance - most recent LDL as shown below - currently on Ezetimibe only - has known CAD, follows with Cardiology The current medical regimen is effective; continue present plan and medications. Lab Results Component Value Date LDLCALC 87 01/12/2025 Orders: Lipid panel; Future Assessment & Plan (11/16/2024 3:15 PM CDT): Continue home ezetimibe 10mg Assessment & Plan (11/15/2024 12:02 PM CDT): Continue home ezetimibe 10mg Assessment & Plan (11/14/2024 11:29 AM CDT): Continue home ezetimibe 10mg Assessment & Plan (11/13/2024 7:20 PM CDT): Continue home ezetimibe 10mg Assessment & Plan (11/12/2024 6:21 PM CDT): Continue home ezetimibe 10mg Assessment & Plan (11/11/2024 7:48 PM CDT): Continue home ezetimibe 10mg Assessment & Plan (11/10/2024 8:29 PM CDT): Continue home ezetimibe 10mg Assessment & Plan (11/09/2024 10:03 PM CDT): Continue home ezetimibe 10mg Assessment & Plan (07/09/2024 5:01 PM CDT): - chronic condition, not at goal of <70 LDL - hx of statin intolerance - most recent LDL as shown below - currently on Ezetimibe only - has known CAD, follows with Cardiology - recheck labs, order placd Lab Results Component Value Date LDLCALC 87 07/09/2024 Assessment & Plan (01/02/2024 5:55 PM CDT): Chronic. Statin intolerant. Tolerates ezetimibe. Continue. Check cholesterol level. Assessment & Plan (07/02/2023 4:47 PM CDT): Chronic. Statin intolerant. Continue Zetia started after last labs. If unable to achieve control with ezetimibe then may need to consider a PCSK9 inhibitor History of gout 05/15/2022 Assessment & Plan (01/18/2025 12:30 AM CDT): Chronic condition No recent flares. Continue allopurinol 100 mg daily. Monitor Uric acid. The current medical regimen is effective; continue present plan and medications. Lab Results Component Value Date URICACID 4.5 01/12/2025 Orders: Uric acid; Future Assessment & Plan (11/16/2024 3:15 PM CDT): Continue home allopurinol 100mg Assessment & Plan (11/15/2024 12:02 PM CDT): Continue home allopurinol 100mg Assessment & Plan (11/14/2024 11:29 AM CDT): Continue home allopurinol 100mg Assessment & Plan (11/13/2024 7:20 PM CDT): Continue home allopurinol 100mg Assessment & Plan (11/12/2024 6:21 PM CDT): Continue home allopurinol 100mg Assessment & Plan (11/11/2024 7:48 PM CDT): Continue home allopurinol 100mg Assessment & Plan (11/10/2024 8:29 PM CDT): Continue home allopurinol 100mg Assessment & Plan (11/09/2024 10:03 PM CDT): Continue home allopurinol 100mg Assessment & Plan (07/09/2024 5:01 PM CDT): Chronic condition No recent flares. Continue allopurinol 100 mg daily. Monitor Uric acid. New order placed Lab Results Component Value Date URICACID 5.9 07/09/2024 Assessment & Plan (01/02/2024 5:55 PM CDT): No recent flares. Continue allopurinol. Check uric acid Assessment & Plan (07/02/2023 4:48 PM CDT): Chronic. Denies any recent flares. 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 He is now at [facility] in a skilled nursing due to his recent cancer diagnosis and declining memory. May consider memantine/Namenda at next visit. He is not driving and should not start. Follow-up in 6 months or sooner if need be. Assessment & Plan (01/18/2025 12:30 AM CDT): Follows with Neurology since 2020 Evaluated every 6 months He tried a medication and did not tolerate it well Difficulties with short term memory, no behavioral issues Assessment & Plan (11/16/2024 3:15 PM CDT): Optimize setting -- shades open during the day, ambulate patient throughout the day as needed Assessment & Plan (11/15/2024 12:02 PM CDT): Optimize setting -- shades open during the day, ambulate patient throughout the day as needed Assessment & Plan (11/14/2024 11:29 AM CDT): Optimize setting -- shades open during the day, ambulate patient throughout the day as needed Assessment & Plan (11/13/2024 7:20 PM CDT): Optimize setting -- shades open during the day, ambulate patient throughout the day as needed Assessment & Plan (11/12/2024 6:21 PM CDT): Optimize setting -- shades open during the day, ambulate patient throughout the day as needed Assessment & Plan (11/11/2024 7:48 PM CDT): Optimize setting -- shades open during the day, ambulate patient throughout the day as needed Assessment & Plan (11/10/2024 8:29 PM CDT): Optimize setting -- shades open during the day, ambulate patient throughout the day as needed Assessment & Plan (11/09/2024 10:03 PM CDT): Optimize setting -- shades open during the day, ambulate patient throughout the day as needed Assessment & Plan (10/18/2024 8:18 AM CDT): being followed by [facility]. On exelon. AOX2 at baseline Daughter is POA Not on meds -Started ramelteon and nightly seroquel 25 nightly to aid in sleep while IP -Delirium precautions Assessment & Plan (10/17/2024 8:09 AM CDT): being followed by [facility]. On exelon. AOX2 at baseline Daughter is POA Not on meds -start ramelteon nightly -start seroquel 25 nightly to aid in sleep -delirium precautions Assessment & Plan (10/16/2024 9:20 AM CDT): being followed by [facility]. On exelon. AOX2 at baseline Daughter is POA Not on meds -start ramelteon nightly -start seroquel 25 nightly to aid in sleep -delirium precautions Assessment & Plan (10/15/2024 7:30 AM CDT): being followed by [facility]. On exelon. AOX2 at baseline Daughter is POA as per her. SW needs to confirm the paper work Family is looking for assisted living facility Assessment & Plan (10/14/2024 7:30 AM CDT): being followed by [facility]. On exelon. AOX2 at baseline Daughter is POA as per her. SW needs to confirm the paper work Family is looking for assisted living facility Assessment & Plan (10/13/2024 7:26 AM CDT): being followed by [facility]. On exelon. AOX2 at baseline Daughter is POA as per her. SW needs to confirm the paper work Family is looking for assisted living facility Assessment & Plan (10/12/2024 8:56 PM CDT): being followed by [facility]. On exelon. AOX2 at baseline Daughter is POA as per her. SW needs to confirm the paper work Family is looking for assisted living facility Assessment & Plan (07/21/2024 11:48 AM CDT): Overall, stable cognitive testing. Discussed the benefits of wearing hearing aids but the patient declined at this time. Briefly discussed pursuing biomarkers and anti-amyloid therapies. Family will reach out if he decides he wants to forgo testing. Follow-up in 6 months or sooner if need be. Assessment & Plan (07/09/2024 9:21 AM CDT): Follows with Neurology since 2021 Evaluated every 6 months He tried a medication and did not tolerate it well Difficulties with short term memory, no behavioral issues Assessment & Plan (01/21/2024 9:21 AM CDT): [...] if interested. Information was provided on the [employer] in which he would also like [...] of rectal cancer 04/07/2019 Assessment & Plan (08/19/2024 8:40 AM CDT): - history of a rectal cancer that was discovered after an endoscopic polypectomy. He subsequently had a tem that showed no residual cancer but some adenoma in the specimen - Rectal cancer status transanal endoscopic microsurgery in 08/09/2017 for rectal polyp 9 cm from the anal verge. - follows with Colorectal surgeon - has had colonoscopies in 2020, and 09/2023, repeat in 3 years MRI Pelvis w wo contrast 2019 FINDINGS: Rectal Cancer Staging Information: Tumor: No visualized rectal mass, suspicious enhancement, or restricted diffusion. Nodes: No lymphadenopathy. Bladder: Trabeculation of the bladder wall likely related to chronic bladder outlet obstruction. Reproductive organs: The prostate is enlarged measuring 5.2 cm transverse. The peripheral zone is thinned, with areas of T2 hypointensity suggestive of prior prostatitis. Epididymal cysts are present. Other Findings: No ascites. Normal caliber visualized bowel. IMPRESSION: 1. No visualized rectal mass. 2. Changes of benign prostatic hyperplasia. Colonoscopy 09/2023 Impression: - Two 2 to 3 mm polyps in the ascending colon, removed with a hot biopsy forceps. Resected and retrieved. - One 6 mm polyp in the ascending colon, removed with a hot snare. Resected and retrieved. - One 4 mm polyp in the descending colon, removed with a hot biopsy forceps. Resected and retrieved. - One 2 mm polyp in the rectum, removed with a hot biopsy forceps. Resected and retrieved. - Scar in the distal rectum. Recommendation: - Await pathology results. - Repeat colonoscopy in 3 years for surveillance. Assessment & Plan (07/09/2024 9:20 AM CDT): - history of a rectal cancer that was discovered after an endoscopic polypectomy. He subsequently had a tem that showed no residual cancer but some adenoma in the specimen - follows with Colorectal surgeon - has had colonoscopies in 2020, and 09/2023, repeat in 3 years Colonoscopy 09/2023 Impression: - Two 2 to 3 mm polyps in the ascending colon, removed with a hot biopsy forceps. Resected and retrieved. - One 6 mm polyp in the ascending colon, removed with a hot snare. Resected and retrieved. - One 4 mm polyp in the descending colon, removed with a hot biopsy forceps. Resected and retrieved. - One 2 mm polyp in the rectum, removed with a hot biopsy forceps. Resected and retrieved. - Scar in the distal rectum. Recommendation: - Await pathology results. - Repeat colonoscopy in 3 years for surveillance. Assessment & Plan (07/02/2023 4:46 PM CDT): Patient is due for follow up with his colorectal surgeon. He last saw 3 years ago. We will refer back to specialists. He will be due for a colonoscopy in potential any additional test per the specialists. Patient and his daughter were given the contact information for his specialist. Currently without any active signs of recurrence Current Treatment and Therapy Plans IV Maintenance Therapy Plan* Plan Start Date:09/30/2024 Plan Provider:Jesus Alberto Arriola MD PhD Linked Problems Anal cancer (HCC) Treatment Medications No medications scheduled. Past Treatment and Therapy Plans Oncology Chemotherapy Treatment Plan Name Start Date Discontinue Date Treatment Medications Discontinue Reason Plan Provider Cycles Fluorouracil / MitoMYCIN with Concurrent Radiation 35 Day Cycle - Anal 11/26/2024 fluorouracil (ADRUCIL)fluoro uracil (ADRUCIL) IVPB in 1,000 mL (ADRUCIL)mitoMY liam (MUTAMYCIN)kamlesh MYcin (MUTAMYCIN) 0.5 mg/mL Therapy Complete Jesus Alberto Arriola MD PhD 1 of 1 cycle started Current Radiation Episodes * Radiation Oncology - Radiation Therapy - September 2024Overview* First Treatment Date Latest Treatment Date Treatment Site Technique Goal Episode Provider 10/12/2024 12/01/2024 Reynold Tadeo MD Treatment Courses* Course C1_ANUS_202410/12/2024 - 12/01/2024 Treatment Period Fraction Dose Fractions Total Dose Plans Planned PELVIS_ANUS 10/12/2024 - 12/01/2024 180 30 / 5,400 Reference Points Delivered [id number]_ANUS_5400 10/12/2024 - 12/01/2024 5,400 Lifetime Dose Tracking * Chemical Lifetime Dose Automatic Entry Manual Entr y mitomycin 18.868 mg/m2 (40 mg) 18.868 mg/m2 (40 mg) 0 mg/m2 (0 mg) DLP 1,245 mGycm 1,245 mGycm 0 mGycm Resolved Problems Problem Noted Date Diagnosed Date Resolved Date Delirium 11/26/2024 01/12/2025 Moderate protein-calorie malnutrition 11/23/2024 01/12/2025 Stage 2 chronic kidney disease 11/22/2024 01/12/2025 Nausea and vomiting, unspeci fied vomiting type 11/21/2024 01/12/2025 Hypotension 11/15/2024 01/12/2025 Assessment & Plan (11/16/2024 3:23 PM CDT): - episode of Hypotension, SBP <90 with c/o watery Diarrhea - Ordered 1L NS Bolus, Will give more fluid after checking BP, will keep on Telemetry - ordered EKG - Afib with HR 60s, less likely Afib related Hypotension as HR <100 - Likely Hypotension from Dehydration - Foul Smelling Diarrhea - Ordered Cdiff - negative - Holding Home BP Meds - Lisinopril - Metoprolol, Diltiazem for now - will have to manage dose of few BP meds after discharge Assessment & Plan (11/15/2024 4:28 PM CDT): - episode of Hypotension, SBP <90 with c/o watery Diarrhea - Ordered 1L NS Bolus, Will give more fluid after checking BP, will keep on Telemetry - ordered EKG - Afib with HR 60s, less likely Afib related Hypotension as HR <100 - Likely Hypotension from Dehydration - Foul Smelling Diarrhea - Ordered Cdiff - Holding Home BP Meds - Lisinopril - Metoprolol, Diltiazem - Holding Tamsulosin Hyperbilirubinemia 10/18/2024 Assessment & Plan (11/16/2024 3:15 PM CDT): monitor Assessment & Plan (11/15/2024 12:02 PM CDT): monitor Assessment & Plan (11/14/2024 11:29 AM CDT): monitor Assessment & Plan (11/13/2024 7:20 PM CDT): monitor Assessment & Plan (11/12/2024 6:21 PM CDT): monitor Assessment & Plan (11/11/2024 7:48 PM CDT): monitor Assessment & Plan (11/10/2024 8:29 PM CDT): monitor Assessment & Plan (11/09/2024 10:03 PM CDT): monitor Assessment & Plan (10/18/2024 11:22 AM CDT): T bili 1.6 from 1.2 Possibly 2/2 chemo? LFTs and ALP normal Onc rec direct bilirubin, direct bili 0.5, will discharge Back pain 10/14/2024 01/12/2025 Assessment & Plan (10/18/2024 8:18 AM CDT): He c/o of low back pain. Right lower assembler hydraulic backhoe to palpation, likely MSK. -tylenol prn, tramadol prn, lidocaine patch Assessment & Plan (10/17/2024 8:09 AM CDT): He c/o of low back pain. Right lower assembler hydraulic backhoe to palpation, likely MSK. -tylenol prn, tramadol prn, lidocaine patch Assessment & Plan (10/16/2024 7:34 AM CDT): He c/o of low back pain. Right lower assembler hydraulic backhoe to palpation, likely MSK. -tylenol prn, tramadol prn, lidocaine patch Assessment & Plan (10/15/2024 7:30 AM CDT): He c/o of low back pain. Right lower assembler hydraulic backhoe to palpation, likely MSK. -tylenol prn, tramadol prn, lidocaine patch Assessment & Plan (10/14/2024 10:25 AM CDT): He c/o of low back pain. Right lower assembler hydraulic backhoe to palpation, likely MSK. -tylenol prn, tramadol prn, lidocaine patch Gout 10/12/2024 01/12/2025 Assessment & Plan (10/18/2024 8:18 AM CDT): H/ Gout Continue Allopurinol Assessment & Plan (10/17/2024 8:09 AM CDT): H/ Gout Continue Allopurinol Assessment & Plan (10/16/2024 7:34 AM CDT): H/ Gout Continue Allopurinol Assessment & Plan (10/15/2024 7:30 AM CDT): H/ Gout Continue Allopurinol Assessment & Plan (10/14/2024 7:30 AM CDT): H/ Gout Continue Allopurinol Assessment & Plan (10/13/2024 7:26 AM CDT): H/ Gout Continue Allopurinol Assessment & Plan (10/12/2024 5:22 PM CDT): H/ Gout Continue Allopurinol Admission for chemotherapy 10/12/2024 0 01/12/2025 Assessment & Plan (11/16/2024 3:15 PM CDT): Above Assessment & Plan (11/15/2024 12:02 PM CDT): Above Assessment & Plan (11/14/2024 11:29 AM CDT): Above Assessment & Plan (11/13/2024 7:20 PM CDT): Above Assessment & Plan (11/12/2024 6:21 PM CDT): Above Assessment & Plan (11/11/2024 7:48 PM CDT): Above Assessment & Plan (11/10/2024 8:29 PM CDT): Above Assessment & Plan (11/09/2024 10:03 PM CDT): Above Hematochezia 10/12/2024 01/12/2025 Assessment & Plan (10/18/2024 8:18 AM CDT): Patient had a large bloody bowel movement 10/12. Likely secondary to anal carcinoma -09/11/24 Flex sig showed large fungating anal mass -Hgb stable -Monitor cbc, transfuse <8 given CAD Assessment & Plan (10/17/2024 9:40 AM CDT): Patient had a large bloody bowel movement 10/12. Likely secondary to anal carcinoma -09/11/24 Flex sig showed large fungating anal mass -Hgb stable -Monitor cbc, transfuse <8 given CAD Assessment & Plan (10/16/2024 7:34 AM CDT): Patient had a large bloody bowel movement 10/12. Likely secondary to anal carcinoma -09/11/24 Flex sig showed large fungating anal mass -hgb stable -monitor cbc, transfuse <8 given CAD -If bleeds again, consult GI. May need colorectal surgery consult given anal mass Assessment & Plan (10/15/2024 7:30 AM CDT): Patient had a large bloody bowel movement 10/12. Likely secondary to anal carcinoma -09/11/24 Flex sig showed large fungating anal mass -hgb stable -monitor cbc, transfuse <8 given CAD -If bleeds again, consult GI. May need colorectal surgery consult given anal mass Assessment & Plan (10/14/2024 7:30 AM CDT): Patient had a large bloody bowel movement 10/12. Likely secondary to anal carcinoma -09/11/24 Flex sig showed large fungating anal mass -hgb stable -monitor cbc, transfuse <8 given CAD -If bleeds again, consult GI. May need colorectal surgery consult given anal mass Assessment & Plan (10/13/2024 10:51 AM CDT): Patient had a large bloody bowel movement 10/12. Likely secondary to anal carcinoma -09/11/24 Flex sig showed large fungating anal mass -hgb stable -monitor cbc, transfuse <8 given CAD -If bleeds again, consult GI. May need colorectal surgery consult given anal mass Assessment & Plan (10/12/2024 8:25 PM CDT): Patient had a large bloody bowel movement today morning. Denies abdominal pain, diarrhea, dizziness, chest pain, fevers. 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 - chronic condition, not at goal, improved with weight loss noted - BMI Follow-up includes: nutrition counseling, exercise counseling and education provided - Recommend to exercise at least 30 minutes moderate to vigorous exercise most days of the week. (minimum 150 minutes weekly) - Co-morbidities - hypertension, hyperlipidemia Assessment & Plan (01/02/2024 5:58 PM CDT): Chronic. Suboptimally controlled. Encouraged healthy diet, exercise, weight loss Chronic kidney disease (CKD) , stage III (moderate) 07/02/2023 01/12/2025 Assessment & Plan (11/16/2024 3:15 PM CDT): NTD, avoid NSAIDS and other nephrotoxic medications Assessment & Plan (11/15/2024 12:02 PM CDT): NTD, avoid NSAIDS and other nephrotoxic medications Assessment & Plan (11/14/2024 11:29 AM CDT): NTD, avoid NSAIDS and other nephrotoxic medications Assessment & Plan (11/13/2024 7:20 PM CDT): NTD, avoid NSAIDS and other nephrotoxic medications Assessment & Plan (11/12/2024 6:21 PM CDT): NTD, avoid NSAIDS and other nephrotoxic medications Assessment & Plan (11/11/2024 7:48 PM CDT): NTD, avoid NSAIDS and other nephrotoxic medications Assessment & Plan (11/10/2024 8:29 PM CDT): NTD, avoid NSAIDS and other nephrotoxic medications Assessment & Plan (11/09/2024 10:03 PM CDT): NTD, avoid NSAIDS and other nephrotoxic medications Assessment & Plan (10/18/2024 8:18 AM CDT): Cr 1.33, Baseline Cr 1.3 -Renal dose meds -Will stop lasix on discharge Assessment & Plan (10/17/2024 9:40 AM CDT): Cr 1.33, Baseline Cr 1.3 -Renal dose meds -Will stop lasix on discharge Assessment & Plan (10/16/2024 7:34 AM CDT): Cr 1.33, Baseline Cr 1.3 -obtain urine studies, bladder scan -renal dose meds -continue home lasix, likely for leg swelling Assessment & Plan (10/15/2024 7:30 AM CDT): Cr 1.33, Baseline Cr 1.3 -obtain urine studies, bladder scan -renal dose meds -continue home lasix, likely for leg swelling Assessment & Plan (10/14/2024 7:30 AM CDT): Cr 1.33, Baseline Cr 1.3 -obtain urine studies, bladder scan -renal dose meds -continue home lasix, likely for leg swelling Assessment & Plan (10/13/2024 10:51 AM CDT): Cr 1.33, Baseline Cr 1.3 -obtain urine studies, bladder scan -renal dose meds -continue home lasix, likely for leg swelling Assessment & Plan (07/09/2024 5:01 PM CDT): - chronic condition - avoid NSAIDs, Bactrim, Contrast, PPI - avoid dehydration - continue with low phos diet and low K diet - renally dose medications Lab Results Component Value Date CREATININE 1.28 07/09/2024 CREATININE 1.36 (H) 01/11/2024 CREATININE 1.49 (H) 12/25/2022 CREATININE 1.36 (H) 09/11/2018 Assessment & Plan (01/02/2024 5:56 PM CDT): [...] concerns arise. Atherosclerosis of abdominal aorta 03/08/2023 07/09/2024 Assessment & Plan (01/02/2024 5:56 PM CDT): Incidental prior imaging. Continue risk factor modification with Eliquis and ezetimibe Assessment & Plan (07/02/2023 4:46 PM CDT): Incidental prior imaging. Statin intolerant. Continue Zetia for secondary prevention Encounter for screening colonoscopy 10/12/2019 12/25/2022 Overview (10/12/2019): Added automatically from request for surgery [id number] Rectal mass 09/02/2018 01/12/2025 Overview (09/22/2024): Pathology 10/14 Diagnosis: A. Anus, mass, biopsy: - Invasive squamous cell carcinoma, well-differentiated. - See comment. Assessment & Plan (08/19/2024 11:02 AM CDT): Rectal mass, highly suspicious for malignancy Rectal mass identified during examination, highly suspicious for malignancy. Previously treated for rectal cancer in 2018. Recent colonoscopy performed less than a year ago. Differential diagnosis includes fissure or hemorrhoid, but mass is palpable and visible, suggesting malignancy. On Eliquis for atrial fibrillation, which may exacerbate bleeding but is not the cause. Pain is significant, with minimal bleeding. - Perform rectal examination to assess mass - Order stool test for occult blood - Order blood work including blood count and inflammatory markers - Refer to colorectal surgeon, Dr. Addy Delvalle, for further evaluation and management as he is an established patient. I will personally have my office and a message to the office as well but his [id number] also be reaching out - Prescribe lidocaine rectal cream for pain management - Advise use of tramadol for pain management as needed - Send message to colorectal surgeon with examination findings and photo of mass Thumb pain, left 05/15/2018 05/15/2022
--- OUTSIDE RECORDS SUMMARY | 2025-02-13 02:57 | XMS_ITS | Encounter Summary ---
Author Organization [facility] Address [facility] [place] [address] Care Team Providers Care Director Of Casino Marketing Name Role Phone Chester Broussard MD Primary Care Provider [phone] Chester Eli MD Unavailable [phone] Johanny Chang NP Unavailable [phone] Evy Rivera MD Unavailable [phone] Wm Berger DO Primary Care Provider [phone] Encounter Details Date Type Department Care Team (Late st Contact Info) Description 12/15/2015 Abstract [facility] [address] [place] [id number] Zaira Vidales RN Social History Tobacco Use Types [...] on filedocumented in this encounter Care Teams Director Of Casino Marketing Relationship Specialty Start Date End Date Chester Broussard MD [address] [place] [address] PCP - General FAMILY PRACTICE 12/15/15 05/22/20 Wm Berger DO [address] [id number] PCP - General INTERNAL MEDICINE 05/23/20 Chester Eli MD [address] [place] [id number] CARDIOVASCULAR DISEASE 12/15/15 1 Johanny Chang NP [address] [place] [id number] Nurse Practitioner NURSE PRACTITIONER 11/05/17 05/22/20 Evy Rivera MD [address] [place] [phone] Consulting Physician CARDIOVASCULAR DISEASE 02/24/19 documented as of this encounter
--- OUTSIDE RECORDS SUMMARY | 2025-02-13 02:57 | XMS_ITS | Encounter Summary ---
Author Organization [facility] Address [facility] [place] [address] Care Team Providers Care Talent Acquisition Coordinator Name Role Phone Chester Broussard MD Primary Care Provider [phone] Chester Eli MD Unavailable [phone] Johanny Chang NP Unavailable [phone] Evy Rivera MD Unavailable [phone] Wm Berger DO Primary Care Provider [phone] Encounter Details Date Type Department Care Team (Late st Contact Info) Description 09/27/[address] [facility] [address] [place] [address] , Generic Conversion, Social History [...] on filedocumented in this encounter Care Teams Talent Acquisition Coordinator Relationship Specialty Start Date End Date Chester Broussard MD [address] [place] [phone] PCP - General FAMILY PRACTICE 12/15/15 05/22/20 Wm Berger DO [address] [address] PCP - General INTERNAL MEDICINE 05/23/20 Chester Eli MD [address] [place] [phone] CARDIOVASCULAR DISEASE 12/15/15 1 Johanny Chang NP [address] [place] [phone] Nurse Practitioner NURSE PRACTITIONER 11/05/17 05/22/20 Evy Rivera MD [address] [place] [phone] Consulting Physician CARDIOVASCULAR DISEASE 02/24/19 documented as of this encounter
--- OUTSIDE RECORDS SUMMARY | 2025-02-13 02:57 | XMS_ITS | Encounter Summary ---
Author Organization [facility] Healthcare Address [address] [place] [address] Care Team Providers Care Cloth Checker Name Role Phone Jeremy Delvalle MD Unavailable [phone] Virgilio Degroot MD Unavailable Blaine Pringle MD Unavailable [phone] Prakash Mejia NP Unavailable [phone] Jesus Alberto Arriola MD PhD Unavailable [phone] Cesar Sepulveda MD Primary Care Provider Reynold Tadeo MD Unavailable Encounter Details Date Type Department Care Team (Latest Contact Info) Description 01/18/2025 Results Follow-Up [facility] Primary Care at [address] [address] Cesar Sepulveda MD [address] [place] [address] [address] [place] [address] Uric acid, Lipid panel, Comprehensive metabolic panel, Additional followed-up results: 2 Social History Tobacco Use Types Packs/Day Years Used Date Smoking Tobacco: Former Cigarettes 1 34 0 04/22/1964 - 04/22/1998 Smokeless Tobacco: Never Alcohol Use Standard Drinks/Week Comments Yes 6 (1 standard drink = 0.6 oz pur e alcohol) [facility] Utilities Answer Date Recorded In the past 12 months has [employer] gas, oil, or water [employer] threatened to shut off services in your home? No 11/23/2024 Social Connection and Isolation Panel Answer Date Recorded In a typical week, how many times do you talk on the phone with family, friends, or neighbors? Twice a week 11/23/2024 How often do you get together with friends or re latives? Once a week 11/23/2024 How often do you attend confucianist or confucianism serv ices? Never 11/23/2024 Do you belong to any clubs o r organizations such as confucianist groups, unions, fraternal or athletic groups, or school groups? No 11/23/2024 How often do you attend meet ings of the clubs or organizations you belong to? Never 11/23/2024 Are you , , di vorced, , never , or living with a partner? 11/23/2024 AUDIT-C Answer Date Recorded Q1: How often do you have a drink containing alcohol? 4 or more times a week 09/29/2024 Q2: How many drinks containi ng alcohol do you have on a typical day when you are drinking? 1 or 2 Q3: How often do you have si x or more drinks on one occasion? Less than monthly 09/29/2024 Overall Financial Resource Strain (CARDIA) Answe r Date Recorded How hard is it for you to pa y for the very basics like food, housing, medical care, and heating? Not very hard 11/23/2024 PHQ-2 Answer Date Recorded PHQ-2 Total Score (If total score is 3 or more points, staff should administer the PHQ-9) 0 01/12/2025 Hunger Vital Sign Answer Date Recorded Within the past 12 months, y ou worried that your food would run out before you got the money to buy more. Never true 11/24/19 25 Within the past 12 months, t he food you bought just didn't last and you didn't have money to get more. Never true 11/23/2024 PRAPARE - Transportation Answer Date Re corded In the past 12 months, has l ack of transportation kept you from medical appointments or from getting medications? No 07/2024 In the past 12 months, has l ack of transportation kept you from meetings, work, or from getting things needed for daily living? No 11/23/2024 Housing Stability Vital Sign Answer [place] Recorded In the last 12 months, was t here a time when you were not able to pay the mortgage or rent on time? No 11/23/2024 In the past 12 months, how m any times have you moved where you were living? 1 11/23/2024 At any time in the past 12 m [facility], were you homeless or living in a senior care (including now)? No 11/23/2024 Personal Safety Answer Date Recorded Have you ever been in or are you currently in a harmful physical or emotional relationship or is someone making you feel afraid or unsafe? 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 Continue current management documented in this encounter Plan of Treatment Not on file documented as of this encounter Visit Diagnoses Not on filedocumented in this encounter Care Teams Cloth Checker Relationship Specialty Start Date End Date Cesar Sepulveda MD [address] [facility] [place] [place] [address] PCP - General Family Medicine 09/28/24 Jeremy Delvalle MD Surgeon Colon and Rectal Surgery 04/07/19 Virgilio Degroot MD [address] [place] [place] [place] [address] Wheel Shop Supervisor Gastroenterology 09/24/19 Blaine Pringle MD [address] [place], [place] [id number] Consulting Physician Cardiology 07/09/24 Prakash Mejia NP [address] [place] [address] Nurse Practitioner Neurology 07/09/24 Jesus Alberto Arriola MD PhD [address] [facility], [facility] [address] [place] [address] Consulting Physician Medical Oncology 09/24/24 Carlyle, MD Reynold [address] [facility] [address] [place] [address] Radiation Oncologist Radiation Oncology 10/01/24 documented as of this encounter
--- OUTSIDE RECORDS SUMMARY | 2025-02-13 02:58 | XMS_ITS | Clinical Summary ---
Author Organization [facility] Address [address] [place] [address] Care Team Providers Care Jewel Staker Name Role Phone Jeremy Delvalle MD Unavailable [phone] Virgilio Degroot MD Unavailable Blaine Pringle MD Unavailable [phone] Prakash Mejia CORPORATE SAFETY COORDINATOR Unavailable [phone] Jesus Alberto Arriola MD PhD Unavailable [phone] Cesar Sepulveda MD Primary Care Provider Reynold Tadeo MD Unavailable Allergies Active Allergy Reactions Criticality Noted Date Comments Wjoddno-Xpw-Ooi Reductase Inhibitors Other (See comments),Headache Low 12/15/2015 Elevated heart rate. Medications esomeprazole DR (NexIUM) 40 mg capsule TAKE 1 CAPSULE BY MOUTH EVERY OTHER DAY 90 capsule 1 10/04/19 24 Active apixaban (ELIQUIS) 5 mg tablet Take 1 tablet (5 mg total) by mouth 2 (two) times a day 180 tablet 2 03/24/20 24 Active ezetimibe (ZETIA) 10 mg tablet TAKE 1 TABLET(10 MG) BY MOUTH DAILY 100 tablet 1 07/16/19 25 Active allopurinoL (ZYLOPRIM) 100 mg tablet TAKE 1 TABLET(100 MG) BY MOUTH DAILY 100 tablet 1 07/16/19 25 Active tamsulosin (FLOMAX) 0.4 mg extended release capsule Take 2 capsules (0.8 mg total) by mouth daily with dinner 60 capsule 10/18/19 25 Active traMADoL (ULTRAM) 50 mg tablet Take 1 tablet (50 mg total) by mouth every 6 (six) hours as needed for pain 30 tablet 10/23/19 25 Active loperamide (IMODIUM) 2 mg capsule Take 1 capsule (2 mg total) by mouth 4 (four) times a day as needed for diarrhea 20 capsule 11/16/19 25 Active naloxone (NARCAN) 4 mg/actuation spray,non-aerosol Administer 1 spray into affected nostril(s) as needed for opioid reversal or respiratory depression Call 911. Administer a single spray in one nostril. Repeat every 3 minutes as needed if no or minimal response. 1 each 11/20/19 25 Active docusate sodium (COLACE) 100 mg capsuleIndications :constipation Take 1 capsule (100 mg total) by mouth daily as needed for constipation 30 capsule 11/20/19 25 Active cholestyramine (QUESTRAN LIGHT) 4 gram powder in packet Take 1 packet by mouth 2 (two) times a day 60 packet 11/28/19 25 Active metoprolol XL (TOPROL-XL) 25 mg extended release tablet Take 1 tablet (25 mg total) by mouth daily 30 tablet 1 11/29/19 25 Active ondansetron ODT (ZOFRAN-ODT) 4 mg disintegrating tabletIndications: nausea or vomiting Take 1 tablet (4 mg total) by mouth once as needed for nausea or vomiting (If able to tolerate PO) for up to 20 doses 20 tablet 11/28/19 25 Active diphenoxylate-atro pine (LOMOTIL) 2.5-0.025 mg per tabletIndications: diarrhea Take 1 tablet by mouth 4 (four) times a day as needed for diarrhea Active potassium chloride ER 20 mEq CR tablet Take 1 tablet (20 mEq total) by mouth 2 (two) times a day Active cholecalciferol (VITAMIN D-3) 2000 unit tablet Active diphenoxylate-atro pine (LOMOTIL) 2.5-0.025 mg per tabletIndications: diarrhea Take 1 tablet by mouth 4 (four) times a day as needed for diarrhea 30 tablet 11/28/19 25 025 Discontin ued(Dupli diana order) Active Problems Problem Noted Date Diagnosed Date [...] onc consulted -RUE picc Assessment & Plan (10/15/2024 7:30 AM CDT): 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 Received Radiation 10/12, will continue RT inpatient -admitted for chemotherapy with C1D1 5FU + mitomycin started 10/13 -med onc consulted -RUQ picc Assessment & Plan (10/12/2024 5:19 PM CDT): [...] 45 mmHg. Mild to moderate tricuspid regurgitation. 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 Pringle Assessment & Plan (07/09/2024 9:21 AM [...] to cognitive testing. He is now at [facility] in a intermediate due to his recent cancer diagnosis and [...] (10/18/2024 8:18 AM CDT): being followed by [facility]. On exelon. AOX2 at baseline Daughter is POA Not on meds -Started ramelteon and nightly seroquel 25 nightly to aid in sleep while IP -Delirium precautions Assessment & Plan (10/17/2024 8:09 AM CDT): being followed by [facility]. On exelon. AOX2 at baseline Daughter is POA Not on meds -start ramelteon nightly -start seroquel 25 nightly to aid in sleep -delirium precautions Assessment & Plan (10/16/2024 9:20 AM CDT): being followed by [facility]. On exelon. AOX2 at baseline Daughter is POA Not on meds -start ramelteon nightly -start seroquel 25 nightly to aid in sleep -delirium precautions Assessment & Plan (10/15/2024 7:30 AM CDT): being followed by [facility]. On exelon. AOX2 at baseline Daughter is POA as per her. SW needs to confirm the paper work Family is looking for assisted living facility Assessment & Plan (10/14/2024 7:30 AM CDT): being followed by [facility]. On exelon. AOX2 at baseline Daughter is POA as per her. SW needs to confirm the paper work Family is looking for assisted living facility Assessment & Plan (10/13/2024 7:26 AM CDT): being followed by [facility]. On exelon. AOX2 at baseline Daughter is POA as per her. SW needs to confirm the paper work Family is looking for assisted living facility Assessment & Plan (10/12/2024 8:56 PM CDT): being followed by [facility] memory clinic. On exelon. AOX2 at baseline Daughter is [...] 9:21 AM CDT): Follows with Neurology since 2020 [...] if interested. Information was provided on the [employer] in which he would also like [...] Metoprolol, Diltiazem - Holding Tamsulosin Hyperbilirubinemia 10/18/2024 09/23/202 5 Assessment & Plan (11/16/2024 3:15 PM CDT): [...] c/o of low back pain. 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 -tylenol prn, tramadol prn, lidocaine patch Assessment & Plan (10/17/2024 8:09 AM CDT): He c/o of low back pain. 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 -tylenol prn, tramadol prn, lidocaine patch Assessment & Plan (10/16/2024 7:34 AM CDT): He c/o of low back pain. 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 -tylenol prn, tramadol prn, lidocaine patch Assessment & Plan (10/15/2024 7:30 AM CDT): He c/o of low back pain. 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 -tylenol prn, tramadol prn, lidocaine patch Assessment & Plan (10/14/2024 10:25 AM CDT): He c/o of low back pain. 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 -tylenol prn, tramadol [...] (10/12/2019): Added automatically from request for surgery [id number] Rectal mass 09/02/2018 01/12/2025 Overview (09/22/2024): Pathology [...] to the office as well but his rkigupys-af-ijz also be reaching out - Prescribe lidocaine rectal cream for pain management - Advise use of tramadol for pain management as needed - Send message to colorectal surgeon with examination findings and photo of mass Thumb pain, left 05/15/2018 05/15/2022 Encounters Date Type Department Care Team Description 02/02/2025 8:00 AM CDT Office Visit [facility] [address] 6th [address] [place] [address] Prakash Mejia NP Late onset Alzheimer's dementia without behavioral disturbance (Primary Dx) 01/21/2025 2:00 PM CDT Office Visit [facility] Medical [facility] [address] [place] [address] Zeenat Mendoza NP Permanent atrial fibrillation (HCC) (Primary Dx); Chronic anticoagulation; Nonrheumatic mitral valve regurgitation; Nonrheumatic aortic (valve) stenosis 01/18/2025 Results Follow-Up [facility] Primary Care at [address] [phone] Cesar Sepulveda MD Uric acid, Lipid panel, Comprehensive metabolic panel, Additional followed-up results: 2 01/12/2025 9:30 AM CDT Lab [address] [address] Permanent atrial fibrillation (HCC); History of gout; Pure hypercholesterolemia ; Primary hypertension 01/12/2025 8:30 AM CDT Office Visit [facility] Primary Care at [address] [phone] Cesar Sepulveda MD Medicare annual wellness visit, subsequent (Primary Dx); Permanent atrial fibrillation (HCC); Anal cancer (HCC); Chronic low back pain, unspecified back pain laterality, unspecified whether sciatica present; History of gout; Pure hypercholesterolemia ; Late onset Alzheimer's dementia without behavioral disturbance; Primary hypertension; Sensorineural hearing loss (SNHL) of both ears; Statin intolerance; Gastroesophageal reflux disease, unspecified whether esophagitis present; Urinary frequency; Abnormality of gait and mobility 12/24/2024 ACO Medication Access [facility] Accountable Care Organization [address] [place] [address] Analisa Murry CPhT 12/15/2024 2:00 PM CDT Clinical Support [facility] Advanced Medicine Radiation Oncology [address] [place] [address] [place] [address] 12/01/2024 11:45 AM CDT Treatment [facility] Office [facility] 2 Radiation Oncology [address] [place] [address] Reynold Tadeo MD 12/01/2024 Completion of Therapy [facility] 2 Radiation Oncology [address] [place] [address] Destiney Andrade PA 12/01/2024 [facility] 2 Radiation Oncology [address] [place] [address] Mayank Sherwood MD 12/01/2024 Orders Only RAD ONC TREATMENTS Miscellaneous, Not In File 11/30/2024 12:00 PM CDT Treatment [facility] 2 Radiation Oncology [address] [place] [address] 11/30/2024 Orders Only RAD ONC TREATMENTS Miscellaneous, Not In File 11/26/2024 Orders Only [facility] [address] [facility] [address] [place] [address] Jesus Alberto Arriola MD PhD 11/25/2024 [facility] 2 Radiation Oncology [address] [place] [address] Guillermina Isaacs MD Anal cancer (HCC) (Primary Dx) 11/23/2024 [facility] 2 Radiation Oncology [address] [place] [address] Guillermina Isaacs MD Anal cancer (HCC) (Primary Dx) 11/21/2024 9:33 AM CDT - 11/27/2024 2:53 PM CDT Hospital Encounter [facility] 4 Med Surg [address] [place] [address] Bertin Reno MD Lopez, MD Hunter Bar Tharun, MD Dhawan, MD Josephine Montgomery, Isak, DO Nausea and vomiting, unspecified vomiting type (Primary Dx); Enteritis; Atrial fibrillation with RVR (HCC); History of rectal cancer; Stage 2 chronic kidney disease [N18.2]; Gastroesophageal reflux disease, unspecified whether esophagitis present [K21.9]; Late onset Alzheimer's dementia without behavioral disturbance [G30.1, F02.80]; 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 coordinator current use of anticoagulant [Z79.01]; Permanent atrial fibrillation (HCC) [I48.21]; Delirium Discharge Disposition: Discharge to [facility] 11/19/2024 2:30 PM CDT Treatment [facility] Medical Office Building 2 Radiation Oncology [address] [place] [address] 11/19/2024 OTV [facility] 2 Radiation Oncology [address] [place] [address] Mayank Sherwood MD 11/19/2024 Orders Only RAD ONC TREATMENTS Miscellaneous, Not In File 11/19/2024 Telephone [facility] Medical Group Primary Care at [address] [address] Cesar Sepulveda MD Medical Question/Miscellaneo us 11/18/2024 2:30 PM CDT Treatment [facility] Medical Office Building 2 Radiation Oncology [address] [place] [address] 11/18/2024 Telephone [facility] 2 Radiation Oncology [address] [place] [address] Sharron Tatum RN 11/18/2024 Orders Only RAD ONC TREATMENTS Miscellaneous, Not In File 11/17/2024 2:30 PM CDT Clinical Support [facility] Medical Office Building 2 Radiation Oncology [address] [place] [phone] Anal cancer (HCC) (Primary Dx) 11/17/2024 2:30 PM CDT Treatment [facility] Medical Office Building 2 Radiation Oncology [address] [place] [address] 11/17/2024 Orders Only RAD ONC TREATMENTS Miscellaneous, Not In File 11/16/2024 4:02 PM CDT - 11/16/2024 11:59 PM CDT Hospital [facility] Radiation Oncology [address] [facility] [place] [address] Discharge Disposition: Discharge to home or self care 11/16/2024 Orders Only RAD ONC TREATMENTS Miscellaneous, Not In File 11/16/2024 OTV [facility] Radiation Oncology [address] [place] [address] Reynold Tadeo MD 11/13/2024 1:59 PM CDT - 11/13/2024 11:59 PM CDT Hospital Encounter [facility] Advanced [facility] Radiation Oncology [address] [place] [address] Discharge Disposition: Discharge to home or self care 11/13/2024 Orders Only RAD ONC TREATMENTS Miscellaneous, Not In File 11/09/2024 8:00 PM CDT - 11/17/2024 7:25 AM CDT Hospital Encounter [facility] [address] [place] [address] Kurtis Arvizu MD PhD Walsh, MD Nazia Figueredo Hazera, MD Tan, Merlin Ritter MD Anal cancer (HCC) (Primary Dx) Discharge Disposition: Discharge to SNF from Last 3 Months Immunizations Immunization Administration Dates Next Due Influenza, Quadrivalent, Hig h Dose, Preservative Free, Intrr 04/22/2020,03/22/2020,01/04/2020 Influenza, Quadrivalent, Spl it, Preservative Free, Intramuscular 01/24/2015,01/27/2014,01/20/2014 Influenza, Trivalent, High D ose, Split, Preservative Free, Intramuscular 01/11/2020,01/02/2019,02/04/2018,01/14,02/01/2016 Influenza, Unspecified 01/12/2025(Deferr ed: Patient Refused),07/09/2024(Deferred: Patient Refused),04/22/2023(Deferred: Patient Refused) Pfizer SARS-CoV-2 Monovalent Vaccination (12+ Yrs) PURPLE 02/16/2021,02/14/2021,08/17/2020,07/27,07/25/2020,06/16/2020 Pneumococcal Conjugate PCV 13 12/06/2015, 015 Pneumococcal Polysaccharide PPV23 02/01/2012 TD Preservative Free 10/19/2016 ZOSTER LIVE 01/14/2013 Surgical History Surgery Date Site/Laterality Comments KNEE ARTHROSCOPY HAND SURGERY GALLBLADDER SURGERY 07/21/2008 - 08/19/2008 COLONOSCOPY 01/2011, 07/2011, 07/22 013, 08/2018 CARDIAC CATHETERIZATION 12/21/2006 - 01/19/2007 KNEE SURGERY 2000, 07/2010 CATARACT EXTRACTION, BILATERAL 06/20/2012 - 07/20/2012 COLONOSCOPY Medical History Medical History Date Comments Arthritis Asthma Clotting disorder GERD (gastroesophageal reflux disease) Hypercholesteremia Colorectal polyps High blood pressure Gout Arthritis A-fib (HCC) CAD (coronary artery disease) Dementia (HCC) Allergies Sinusitis Headache Nausea and vomiting, unspecified vomiting type Family History Medical History Relation Name Comments [...] drink = 0.6 oz pur e alcohol) [facility] Utilities Answer Date Recorded In the past 12 months has [employer], gas, oil, or water [employer] threatened to shut off services in your home? No 11/23/2024 Social Connection and Isolation Panel Answer Date Recorded In a typical week, how many times do you talk on the phone with family, friends, or neighbors? Twice a week 11/23/2024 How often do you get together with friends or re latives? Once a week 11/23/2024 How often do you attend jain or confucianist serv ices? Never 11/23/2024 Do you belong to any clubs o r organizations such as jain groups, unions, fraternal or athletic groups, or [...] any time in the past 12 m [facility], were you homeless or living in a alf (including now)? No 11/23/2024 Personal Safety Answer Date Recorded Have you ever been in or are you currently in a harmful physical or emotional relationship or is someone making you feel afraid or unsafe? Denies 11/21/2024 Sex and Gender Information Value Date Recorded Sex Assigned at Not on file Legal Sex Male 8:38 AM FRONT MAN Gender Identity Not on file Sexual Orientation Not on file Occupation Industry Job Start Date Job End Date [employer] Not on file Not on file Not on file Obstetrics History Last Filed Vital Signs Vital Sign Reading Time Taken Comments Blood Pressure 119/76 02/02/2025 7:34 AM CDT Pulse 91 02/02/2025 7:34 AM CDT Temperature 36.4 C (97.5 F) 02/02/2025 7:34 AM CDT Respiratory Rate 14 11/27/2024 7:01 AM CDT Oxygen Saturation 100% 02/02/2025 7:34 AM CDT Inhaled Oxygen Concentration - - Weight 86.4 kg (190 lb 8 oz) 02/02/2025 7:34 AM CDT Height 177.8 cm (5' 10) 02/02/2025 7:34 AM CDT Body Mass Index 27.33 02/02/2025 7:34 AM CDT Plan of Treatment Health Maintenance Due Date Last Done Comments Zoster Vaccine (1 of 2) 03/11/2013 01/14/2013 DTaP/Tdap/Td Vaccine (1 - Tdap) 10/20/2016 7 Covid-19 Vaccine (7 - 2024-2 6 season) 2024 02/16/2021, 02/14/2021, 08/17/2020, Additional history exists Influenza Vaccine (#1) 2024 , 03/22/2020, 01/11/2020, Additional history exists Depression Screening 01/12/2026 01/12/2025, 08/19/2024, 07/09/2024, Additional history exists Fall Risk Assessment 01/12/2026 01/12/2025, 11/27/2024, 09/29/2024, Additional history exists Well Visit 65+ 01/12/2026 01/12/2025, 01/02/2024 Colon Cancer Screening-Colonoscopy 10/17/2026 10/18/2023, 07/08/2020, 01/11/2020 Pneumococcal vaccine 65+ Completed 016, 03/21/2015, 02/01/2012 Hepatitis C Screening Completed 12/25/2022 Hepatitis B Screening Completed 01/11/2024 Colon Cancer Screening-CT Colonography Discontinued 09/11/2024, 10/18/2023, 07/08/2020, Additional history exists Colon Cancer Screening-DNA Stool Discontinued 09/11/2024, 10/18/2023, 07/08/2020, Additional history exists Colon Cancer Screening-FIT Discontinued 09/11, 10/18/2023, 07/08/2020, Additional history exists Colon Cancer Screening-Sigmoidoscopy Discontinued 09/11/2024, 10/18/2023, 07/08/2020, Additional history exists Abdominal Aortic Aneurysm (A AA) Screen Completed 11/21/2024, 09/11/2024, 02/05/2019 Procedures Procedure Name Priority Date/Time Associated Diagnosis Comments EGFR Routine 01/12/2025 9:34 AM CDT Permanent atrial fibrillation (HCC) Primary hypertension CBC WITHOUT DIFFERENTIAL Routine 01/12/2025 9:34 AM CDT Permanent atrial fibrillation (HCC) Primary hypertension COMPREHENSIVE METABOLIC PANEL Routine 01/12/2025 9:34 AM CDT Permanent atrial fibrillation (HCC) Primary hypertension LIPID PANEL Routine 01/12/2025 9:34 AM CDT Permanent atrial fibrillation (HCC) Pure hypercholesterolemia URIC ACID Routine 01/12/2025 9:34 AM CDT Permanent atrial fibrillation (HCC) History of gout RAD ONC ARIA SESSION SUMMARY 12/01/2024 12:09 PM CDT RAD ONC ARIA SESSION SUMMARY 11/30/2024 12:35 PM CDT MAGNESIUM Routine 11/26/2024 4:26 AM CDT DIFFERENTIAL AUTO Routine 11/25/2024 9:0 1 AM CDT CBC WITH AUTO DIFFERENTIAL Routine 11/25/2024 9:01 AM CDT EGFR Routine 11/24/2024 3:28 AM CDT DIFFERENTIAL AUTO Routine 11/24/2024 3:2 8 AM CDT CBC WITH AUTO DIFFERENTIAL Routine 11/24/2024 3:28 AM CDT BASIC METABOLIC PANEL Routine 11/24/2024 3:28 AM CDT CRYPTOSPORIDIUM AND GIARDIA ANTIGEN ASSAY Routine 11/23/2024 6:52 PM CDT STOOL CULTURE Routine 11/23/2024 6:52 PM CDT EGFR Routine 11/23/2024 5:47 AM CDT DIFFERENTIAL AUTO Routine 11/23/2024 5:4 7 AM CDT CBC WITH AUTO DIFFERENTIAL Routine 11/23/2024 5:47 AM CDT BASIC METABOLIC PANEL Routine 11/23/2024 5:47 AM CDT EGFR Routine 11/22/2024 7:28 AM CDT DIFFERENTIAL AUTO Routine 11/22/2024 7:2 8 AM CDT CBC WITH AUTO DIFFERENTIAL Routine 11/22/2024 7:28 AM CDT BASIC METABOLIC PANEL Routine 11/22/2024 7:28 AM CDT SEPSIS LACTATE WITH REFLEX Timed 11/21/2024 3:10 PM CDT URINALYSIS, MICROSCOPIC ONLY STAT 11/21/2024 1:58 PM CDT URINE CULTURE STAT 11/21/2024 1:58 PM CDT URINALYSIS AND REFLEX TO MICROSCOPIC AND CULTURE STAT 11/21/2024 1:58 PM CDT SEPSIS LACTATE WITH REFLEX STAT 11/21/2024 11:[address] ABDOMEN PELVIS W CONTRAST ED 11/21/2024 11:13 AM CDT CALCIUM LEVEL STAT 11/21/2024 9:41 AM CDT MAGNESIUM STAT 11/21/2024 9:41 AM CDT PHOSPHORUS STAT 11/21/2024 9:41 AM CDT LIPASE STAT 11/21/2024 9:41 AM CDT EGFR STAT 11/21/2024 9:41 AM CDT DIFFERENTIAL AUTO STAT 11/21/2024 9:4 1 AM CDT COMPREHENSIVE METABOLIC PANEL STAT 11/21/2024 9:41 AM CDT CBC WITH AUTO DIFFERENTIAL STAT 11/21/2024 9:41 AM CDT RAD ONC ARIA SESSION SUMMARY 11/19/2024 2:57 PM CDT RAD ONC ARIA SESSION SUMMARY 11/18/2024 2:49 PM CDT RAD ONC ARIA SESSION SUMMARY 11/17/2024 2:41 PM CDT RAD ONC ARIA SESSION SUMMARY 11/16/2024 4:53 PM CDT INFECTION PREVENTION VRE CULTURE Routine 11/16/2024 6:12 AM CDT C. DIFFICILE TESTING STAT 11/16/2024 6:12 AM CDT EGFR Routine 11/16/2024 1:07 AM CDT DIFFERENTIAL AUTO Routine 11/16/2024 1:0 7 AM CDT COMPREHENSIVE METABOLIC PANEL Routine 11/16/2024 1:07 AM CDT CBC WITH AUTO DIFFERENTIAL Routine 11/16/2024 1:07 AM CDT NOROVIRUS PCR Routine 11/15/2024 9:08 PM CDT ECG 12-LEAD STAT 11/15/2024 1:32 PM CDT EGFR Routine 11/15/2024 1:02 AM CDT DIFFERENTIAL AUTO Routine 11/15/2024 1:0 2 AM CDT COMPREHENSIVE METABOLIC PANEL Routine 11/15/2024 1:02 AM CDT CBC WITH AUTO DIFFERENTIAL Routine 11/15/2024 1:02 AM CDT URINALYSIS, MICROSCOPIC ONLY STAT 11/14/2024 6:10 AM CDT URINALYSIS AND REFLEX TO MICROSCOPIC STAT 11/14/2024 6:10 AM CDT BILIRUBIN, DIRECT Routine 11/14/2024 3:1 2 AM CDT EGFR Routine 11/14/2024 3:12 AM CDT DIFFERENTIAL AUTO Routine 11/14/2024 3:1 2 AM CDT COMPREHENSIVE METABOLIC PANEL Routine 11/14/2024 3:12 AM CDT CBC WITH AUTO DIFFERENTIAL Routine 11/14/2024 3:12 AM CDT RAD ONC ARIA SESSION SUMMARY 11/13/2024 2:26 PM CDT EGFR Routine 11/13/2024 3:48 AM CDT DIFFERENTIAL AUTO Routine 11/13/2024 3:4 8 AM CDT MAGNESIUM Routine 11/13/2024 3:48 AM CDT PHOSPHORUS Routine 11/13/2024 3:48 AM CDT COMPREHENSIVE METABOLIC PANEL Routine 11/13/2024 3:48 AM CDT CBC WITH AUTO DIFFERENTIAL Routine 11/13/2024 3:48 AM CDT FLEXIBLE SIGMOIDOSCOPY 09/11/2024 10:21 AM CDT COLONOSCOPY 10/18/2023 6:53 AM CDT HEPATITIS C ANTIBODY Routine 12/25/2022 8:30 AM CDT Primary hypertension Encounter for hepatitis C screening test for low risk patient from Last 3 Months or Most Recently Relevant to Health Maintenance Results * eGFR (01/12/2025 9:34 AM CDT) eGFR 72 >=60 mL/min/1. 73 m2 Comment: Interpretive Data Reference Interval Normal >/= 90 mL/min/1.73m2 Mildly decreased* 60 - 89 mL/min/1.73m2 Mildly to moderately decreased 45 - 59 mL/min/1.73m2 Moderately to severely decreased 30 - 44 mL/min/1.73m2 Severely decreased 15 - 29 mL/min/1.73m2 Kidney Failure < 15 mL/min/1.73m2 *Relative to young adult level Estimated glomerular filtration rate is determined by the 2020 CKD-EPI equation recommended by the National Kid[employer] Foundation (A Unifying Approach to GFR Estimation: Recommendations of the NKF-ASK Task Force on Reassessing the Inclusion of Race in Diagnosing Kidney Disease, JASN 2020). The CKD-EPI equation should not be used for patients with unstable renal function and has not been validated in children and those over 70. Current interpretive data was last reviewed 2021. Blood 01/12/2025 9:34 AM CDT 01/12/2025 10:41 AM CDT Cesar Sepulveda MD LAB BLOOD ORDERABLES Fi nal Result Performing Organization Address City/[facility]/ZIP Co de Phone Number [address] [place] [address] * (ABNORMAL) CBC without differential (01/12/2025 9:34 AM CDT) WBC 7.99 3.80 - 9.90 K/cumm Hgb 12.6(L) 13.0 - 17.5 g/dL [facility] Hct 40.4 38.9 - 50.3 % [facility] Plt 189 150 - 400 K/cumm [facility] MPV 10.9 9.1 - 12.3 fL [facility] RBC 4.05(L) 4.30 - 5.80 M/cumm [facility] MCV 99.8(H) 81.3 - 96.4 fL [facility] MCH 31.1 27.1 - 33.3 pg [facility] MCHC 31.2(L) 32.3 - 35.7 g/dL [facility] [facility] R[facility] CV 14.9 11.1 - 14.9 % [facility] RDW SD 55.2(H) 35.7 - 48.1 fL [facility] NRBC abs 0.00 0.00 - 0.01 K/cumm [facility] Blood 01/12/2025 9:34 AM CDT 01/12/2025 10:41 AM CDT Cesar Sepulveda MD LAB BLOOD ORDERABLES Fi nal Result Performing Organization Address City/[facility]/ZIP Co de Phone Number [address] [address] * Uric acid (01/12/2025 9:34 AM CDT) Uric acid 4.5 3.0 - 8.0 mg/dL Blood 01/12/2025 9:34 AM CDT 01/12/2025 10:41 AM CDT Cesar Sepulveda MD LAB BLOOD ORDERABLES Fi nal Result CORNELIO TORRES [address] [facility] [place] [address] * Lipid panel (01/12/2025 9:34 AM CDT) Cholesterol 149 30 - 199 mg/dL Comment: Interpretive Data Ages < or = 19 years Acceptable: <170 mg/dL Borderline high: 170-199 mg/dL High: >or= 200 mg/dL Ages > or = 20 years Desirable: <200 mg/dL Borderline high: 200-239 mg/dL High: >or= 240 mg/dL Literature References: 1. Expert Panel on Integrated Guidelines for Cardiovascular Health and Risk Reduction in Children and Adolescents. Pediatrics 2011;128:S213 2. NCEP Expert Panel. Circulation 2004;110:227 Current Interpretive Data was last revised on 2017. Triglycerides 113 <=149 mg/dL CORNELIO TORRES Comment: Interpretive Data Ages < or = 9 years Acceptable: <75 mg/dL Borderline high: 75-99 mg/dL High: >or= 100 mg/dL Ages 10 to 20 years Acceptable: <90 mg/dL Borderline high: 90-129 mg/dL High: >or= 130 mg/dL Ages > or = 20 years Desirable: <150 mg/dL Borderline high: 150-199 mg/dL High: 200-499 mg/dL Very high: >or= 499 mg/dL Literature References: 1. Expert Panel on Integrated Guidelines for Cardiovascular Health and Risk Reduction in Children and Adolescents. Pediatrics 2011;128:S213 2. NCEP Expert Panel. Circulation 2004;110:227 Current Interpretive Data was last revised on 2017. HDL 41 >=40 mg/dL CORNELIO TORRES Comment: Interpretive Data Ages < or = 19 years Acceptable: >45 mg/dL Borderline low: 40-45 mg/dL Low: <40 mg/dL Ages > or = 20 years Desirable: >or= 60 mg/dL Low: <40 mg/dL Literature References: 1. Expert Panel on Integrated Guidelines for Cardiovascular Health and Risk Reduction in Children and Adolescents. Pediatrics 2011;128:S213 2. NCEP Expert Panel. Circulation 2004;110:227 Current Interpretive Data was last revised on 2017. LDL, calculated 87 <=129 mg/dL CORNELIO TORRES Comment: Interpretive Data Ages < or = 19 years Acceptable: <110 mg/dL Borderline high: 110-129 mg/dL High: >or= 130 mg/dL Ages > or = 20 years Optimal: <100 mg/dL Near optimal: 100-129 mg/dL Borderline high: 130-159 mg/dL High: >160 mg/dL Calculated using the Nathen LDL-C estimating equation. This equation was implemented on 2023. Prior to this date LDL-C was estimated using the Friedewald equation. Literature References: 1. Expert Panel on Integrated Guidelines for Cardiovascular Health and Risk Reduction in Children and Adolescents. Pediatrics 2011;128:S213 2. NCEP Expert Panel. Circulation 2004;110:227 3. Nathen Cope et al. ADELSO Cardiol. 2019August 20;5(5):540-548. doi: 10.1001/jamacardio.2020.0013 Current Interpretive Data was last revised on 2023. Non-HDL Cholesterol 108 mg/dL CORNELIO TORRES Comment: Interpretive Data Ages < or = 19 years Acceptable: <120 mg/dL Borderline high: 120-144 mg/dL High: >145 mg/dL Ages > or = 20 years When triglycerides are >200 mg/dL, Non-HDL cholesterol is a secondary target of therapy with treatment goals that are 30 mg/dL greater than the LDL cholesterol target. Literature References: 1. Expert Panel on Integrated Guidelines for Cardiovascular Health and Risk Reduction in Children and Adolescents. Pediatrics 2011;128:S213 2. NCEP Expert Panel. Circulation 2004;110:227 Current Interpretive Data was last revised on 2017. Chol/HDL ratio 4 CORNELIO TORRES Blood 01/12/2025 9:34 AM CDT 01/12/2025 10:41 AM CDT Narrative CORNELIO TORRES - 01/12/2025 11:01 AM CDT Has the patient been fasting for 8 hours or more?->No Cesar Sepulveda MD LAB BLOOD ORDERABLES Fi nal Result Performing Organization Address City/[facility]/ZIP Co de Phone Number CORNELIO [address] [facility] Department [place] [address] * (ABNORMAL) Comprehensive metabolic panel (01/12/2025 9:34 AM CDT) Sodium 137 135 - 145 mmol/L Potassium, pl 4.3 3.3 - 4.9 mmol/L [facility] Chloride 105 97 - 110 mmol/L [facility] CO2 22 22 - 32 mmol/L [facility] Anion gap 10 2 - 15 mmol/L [facility] BUN 13 6 - 25 mg/dL [facility] Creatinine 1.06 0.80 - 1.30 mg/dL [facility] Glucose 99 70 - 199 mg/dL [facility] Comment: Interpretive Data Fasting glucose >/= 126 mg/dl is diagnostic for diabetes. Fasting is defined as no caloric intake for at least 8 hours. Fasting glucose between 100 mg/dl to 125 mg/dl is diagnostic of prediabetes. In a patient with classic symptoms of hyperglycemia or hyperglycemic crisis, a random glucose >/= 200 mg/dl is diagnostic for diabetes. In the absence of unequivocal hyperglycemia, results should be confirmed by repeat testing. The classification and Diagnosis of Diabetes Diabetes Care 202; 46: S19-S40. Current interpretive data was last revised 2022. Calcium 9.1 8.5 - 10.3 mg/dL [facility] Bilirubin, total 1.1 0.1 - 1.2 mg/dL [facility] Protein, pl 5.9(L) 6.5 - 8.5 g/dL [facility] Albumin 3.3(L) 3.5 - 5.0 g/dL [facility] Alk phos 94 40 - 130 Units/L [facility] ALT 12 7 - 55 Units/L [facility] AST 25 10 - 50 Units/L [facility] Blood 01/12/2025 9:34 AM CDT 01/12/2025 10:41 AM CDT us Cesar Sepulveda MD LAB BLOOD ORDERABLES Fi nal Result Performing Organization Address [facility] Co de Phone Number CORNELIO [address] [facility] [place] [address] * RAD ONC ARIA SESSION SUMMARY (12/01/2024 12:09 PM CDT) Course Name [id number] 25 ARIA Course Plan Date 10/01/2024 9:55 AM ARIA Elapsed Days 50 ARIA Treatment Start Date 10/12/2024 ARIA Treatment Site PELVIS_ANU [id number] ARIA Dose Given To Date (cGy) 5,400 ARIA Session Dosage Given (cGy) 180 ARIA Plan ID PELVIS_ANU S ARIA Fractions Treated 30 ARIA Prescribed Dose Per Fraction (cGy) 180 ARIA Prescribed Total Dose (cGy) 5,400 ARIA 12/01/2024 12:0 9 PM CDT us Not In File Miscellaneous RADIATION ONCOLOGY ORD ERABLES Final Result Performing Organization Address City/[facility]/ZIP Co de Phone Number ARIA * RAD ONC ARIA SESSION SUMMARY (11/30/2024 12:35 PM CDT) Course Name [id number] 25 ARIA Course Plan Date 10/01/2024 9:55 AM ARIA Elapsed Days 49 ARIA Treatment Start Date 10/12/2024 ARIA Treatment Site PELVIS_ANU [id number] ARIA Dose Given To Date (cGy) 5,220 ARIA Session Dosage Given (cGy) 180 ARIA Plan ID PELVIS_ANU S ARIA Fractions Treated 29 ARIA Prescribed Dose Per Fraction (cGy) 180 ARIA Prescribed Total Dose (cGy) 5,400 ARIA 11/30/2024 12:3 5 PM CDT us Not In File Miscellaneous RADIATION ONCOLOGY ORD ERABLES Final Result ARIMissy * Magnesium (11/26/2024 4:26 AM CDT) Magnesium 1.7 1.4 - 2.5 mg/dL Comment:Testing performed by : [facility], [address] [place] [address]., [address] Blood 11/26/2024 4:26 AM CDT 11/26/2024 4:36 AM CDT Valentina Lambert MD LAB BLOOD ORDERABLES Final Resul t [facility] [address] [facility] Department [place] [address] * (ABNORMAL) Differential, auto (11/25/2024 9:01 AM CDT) Neutrophil abs 1.24(L) 1.50 - 6.50 K/cumm Comment:Testing performed by : [address] [address] Imm gran abs 0.02 0.00 - 0.10 K/cumm CORNELIO Comment:Testing performed by : [address] [address] Lymphocyte abs 0.10(L) 0.80 - 3.30 K/cumm CORNELIO Comment:Testing performed by : [address] [address] Monocyte abs 0.56 0.20 - 0.80 K/cumm CORNELIO Comment:Testing performed by : [address] [address] Eosinophil abs 0.20 0.00 - 0.50 K/cumm CORNELIO Comment:Testing performed by : [address] [address] Basophil abs 0.01 0.00 - 0.10 K/cumm CORNELIO Comment:Testing performed by : [address] [address] Neutrophil pct 58.2 % CORNELIO Comment: Interpretive Data Percent cell count reference ranges are not reported, since discordance with absolute values may lead to misinterpretation of CBC data. Current Interpretive Data was last revised on 2017. Testing performed by: [address] [address] Imm gran pct 0.9 % CORNELIO Comment: Interpretive Data Percent cell count reference ranges are not reported, since discordance with absolute values may lead to misinterpretation of CBC data. Current Interpretive Data was last revised on 2017. Testing performed by: [address] [address] Lymphocyte pct 4.7 % [facility] Comment: Interpretive Data Percent cell count reference ranges are not reported, since discordance with absolute values may lead to misinterpretation of CBC data. Current Interpretive Data was last revised on 2017. Testing performed by: [address] [address] Monocyte pct 26.3 % [facility] Comment: Interpretive Data Percent cell count reference ranges are not reported, since discordance with absolute values may lead to misinterpretation of CBC data. Current Interpretive Data was last revised on 2017. Testing performed by: [address] [address] Eosinophil pct 9.4 % [facility] Comment: Interpretive Data Percent cell count reference ranges are not reported, since discordance with absolute values may lead to misinterpretation of CBC data. Current Interpretive Data was last revised on 2017. Testing performed by: [address] [address] Basophil pct 0.5 % [facility] Comment: Interpretive Data Percent cell count reference ranges are not reported, since discordance with absolute values may lead to misinterpretation of CBC data. Current Interpretive Data was last revised on 2017. Testing performed by: [address] [address] Blood 11/25/2024 9:01 AM CDT 11/25/2024 9:04 AM CDT us Vanessa Orozco CORPORATE SAFETY COORDINATOR LAB BLOOD ORDERABLES Pham dnaiel Result CORNELIO [address] [facility] Department [place] [address] * (ABNORMAL) CBC with auto differential (11/25/2024 9:01 AM CDT) WBC 2.13(L) 3.80 - 9.90 K/cumm Comment:Testing performed by : [address], [address] Hgb 11.7(L) 13.0 - 17.5 g/dL CORNELIO Comment:Testing performed by : [address] [address] Hct 34.6(L) 38.9 - 50.3 % CORNELIO Comment:Testing performed by : [address], [address] Plt 112(L) 150 - 400 K/cumm CORNELIO Comment:Testing performed by : [address], [address] MPV 9.6 9.1 - 12.3 fL CORNELIO Comment:Testing performed by : [address], [address] RBC 3.80(L) 4.30 - 5.80 M/cumm CORNELIO Comment:Testing performed by : [address], [address] MCV 91.1 81.3 - 96.4 fL CORNELIO Comment:Testing performed by : [address], [address] MCH 30.8 27.1 - 33.3 pg CERRAMIRO Comment:Testing performed by : [address], [address] MCHC 33.8 32.3 - 35.7 g/dL CORNELIO Comment:Testing performed by : [address], [address] RDW CV 17.1(H) 11.1 - 14.9 % CORNELIO Comment:Testing performed by : [address], [address] RDW SD 52.3(H) 35.7 - 48.1 fL CORNELIO Comment:Testing performed by : [address], [address] NRBC abs 0.00 0.00 - 0.01 K/cumm CORNELIO Comment:Testing performed by : [address] [address] Morphologic Screen Results confirmed by manual morphology review. CORNELIO Comment:Testing performed by : [address] [address] Blood 11/25/2024 9:01 AM CDT 11/25/2024 9:04 AM CDT Vanessa Orozco CORPORATE SAFETY COORDINATOR LAB BLOOD ORDERABLES Pham l Result Performing Organization Address [facility] Co de Phone Number CORNELIO [address] [facility] [place] [employer] [place] [address] * eGFR (11/24/2024 3:28 AM CDT) eGFR 78 >=60 mL/min/1. 73 m2 Comment: Interpretive Data Reference Interval Normal >/= 90 mL/min/1.73m2 Mildly decreased* 60 - 89 mL/min/1.73m2 Mildly to moderately decreased 45 - 59 mL/min/1.73m2 Moderately to severely decreased 30 - 44 mL/min/1.73m2 Severely decreased 15 - 29 mL/min/1.73m2 Kidney Failure < 15 mL/min/1.73m2 *Relative to young adult level Estimated glomerular filtration rate is determined by the 2020 CKD-EPI equation recommended by the National Kidney Foundation (A Unifying Approach to GFR Estimation: Recommendations of the NKF-ASK Task Force on Reassessing the Inclusion of Race in Diagnosing Kidney Disease, JASN 2020). The CKD-EPI equation should not be used for patients with unstable renal function and has not been validated in children and those over 70. Current interpretive data was last reviewed 2021. Testing performed by: [address] [address] Blood 11/24/2024 3:28 AM CDT 11/24/2024 5:00 AM CDT Eliana Avitia CORPORATE SAFETY COORDINATOR LAB BLOOD ORDERABLES Final Result Performing Organization Address City/[facility]/ZIP Co de Phone Number [address] [place] [address] * (ABNORMAL) Differential, auto (11/24/2024 3:28 AM CDT) Neutrophil abs 0.94(L) 1.50 - 6.50 K/cumm Comment:Testing performed by : [address] [address] Imm gran abs 0.01 0.00 - 0.10 K/cumm CORNELIO Comment:Testing performed by : [address] [address] Lymphocyte abs 0.08(L) 0.80 - 3.30 K/cumm CORNELIO Comment:Testing performed by : [address] [address] Monocyte abs 0.41 0.20 - 0.80 K/cumm [facility] Comment:Testing performed by : [address] [address] Eosinophil abs 0.13 0.00 - 0.50 K/cumm [facility] Comment:Testing performed by : [address] [address] Basophil abs 0.00 0.00 - 0.10 K/cumm [facility] Comment:Testing performed by : [address] [address] Neutrophil pct 59.9 % [facility] Comment: Interpretive Data Percent cell count reference ranges are not reported, since discordance with absolute values may lead to misinterpretation of CBC data. Current Interpretive Data was last revised on 2017. Testing performed by: [address] [address] Imm gran pct 0.6 % [facility] Comment: Interpretive Data Percent cell count reference ranges are not reported, since discordance with absolute values may lead to misinterpretation of CBC data. Current Interpretive Data was last revised on 2017. Testing performed by: [address] [address] Lymphocyte pct 5.1 % [facility] Comment: Interpretive Data Percent cell count reference ranges are not reported, since discordance with absolute values may lead to misinterpretation of CBC data. Current Interpretive Data was last revised on 2017. Testing performed by: [address] [address] Monocyte pct 26.1 % CORNELIO Comment: Interpretive Data Percent cell count reference ranges are not reported, since discordance with absolute values may lead to misinterpretation of CBC data. Current Interpretive Data was last revised on 2017. Testing performed by: [address] [address] Eosinophil pct 8.3 % CORNELIO Comment: Interpretive Data Percent cell count reference ranges are not reported, since discordance with absolute values may lead to misinterpretation of CBC data. Current Interpretive Data was last revised on 2017. Testing performed by: [address] [address] Basophil pct 0.0 % CORNELIO Comment: Interpretive Data Percent cell count reference ranges are not reported, since discordance with absolute values may lead to misinterpretation of CBC data. Current Interpretive Data was last revised on 2017. Testing performed by: [address] [address] Blood 11/24/2024 3:28 AM CDT 11/24/2024 5:05 AM CDT us Eliana Avitia NP LAB BLOOD ORDERABLES Final Result [facility] [address] [facility] Department [place] [address] * (ABNORMAL) CBC with auto differential (11/24/2024 3:28 AM CDT) WBC 1.57(L) 3.80 - 9.90 K/cumm Comment:Testing performed by : [address] [address] Hgb 12.1(L) 13.0 - 17.5 g/dL CORNELIO TORRES Comment:Testing performed by : [address] [address] Hct 36.8(L) 38.9 - 50.3 % CORNELIO Comment:Testing performed by : [address] [address] Plt 103(L) 150 - 400 K/cumm CORNELIO Comment:Testing performed by : [address] [address] MPV 10.0 9.1 - 12.3 fL CORNELIO Comment:Testing performed by : [address] [address] RBC 3.97(L) 4.30 - 5.80 M/cumm CORNELIO Comment:Testing performed by : [address] [address] MCV 92.7 81.3 - 96.4 fL CORNELIO Comment:Testing performed by : [address] [address] MCH 30.5 27.1 - 33.3 pg CORNELIO Comment:Testing performed by : [address], [address] MCHC 32.9 32.3 - 35.7 g/dL CORNELIO Comment:Testing performed by : [address] [address] RDW CV 16.9(H) 11.1 - 14.9 % CORNELIO Comment:Testing performed by : [address] [address] RDW SD 54.4(H) 35.7 - 48.1 fL CORNELIO Comment:Testing performed by : [address], [address] NRBC abs 0.00 0.00 - 0.01 K/cumm CORNELIO Comment:Testing performed by : [address], [address] Morphologic Screen Results confirmed by manual morphology review. CORNELIO Comment:Testing performed by : [address] [address] Blood 11/24/2024 3:28 AM CDT 11/24/2024 5:05 AM CDT us Eliana Avitia CORPORATE SAFETY COORDINATOR LAB BLOOD ORDERABLES Edited Result - Final [facility] [address] [facility] Department [place] [address] * Basic metabolic panel (11/24/2024 3:28 AM CDT) Sodium 142 135 - 145 mmol/L Comment:Testing performed by : [address] [address] Potassium, pl 4.0 3.3 - 4.9 mmol/L CORNELIO Comment: Hemolyzed; Potassium value may be falsely elevated by as much as 1.0 mmol/L. Suggest redraw and reanalysis. Testing performed by: [address] [address] Chloride 106 97 - 110 mmol/L CORNELIO Comment:Testing performed by : [address] [address] CO2 22 22 - 32 mmol/L CORNELIO Comment:Testing performed by : [address] [address] Anion gap 14 2 - 15 mmol/L CORNELIO Comment:Testing performed by : [address] [address] BUN 16 6 - 25 mg/dL CORNELIO Comment:Testing performed by : [address] [address] Creatinine 0.99 0.80 - 1.30 mg/dL CORNELIO Comment:Testing performed by : [address] [address] Glucose 104 70 - 199 mg/dL CORNELIO Comment: Interpretive Data Fasting glucose >/= 126 mg/dl is diagnostic for diabetes. Fasting is defined as no caloric intake for at least 8 hours. Fasting glucose between 100 mg/dl to 125 mg/dl is diagnostic of prediabetes. In a patient with classic symptoms of hyperglycemia or hyperglycemic crisis, a random glucose >/= 200 mg/dl is diagnostic for diabetes. In the absence of unequivocal hyperglycemia, results should be confirmed by repeat testing. The classification and Diagnosis of Diabetes Diabetes Care 2022; 46: S19-S40. Current interpretive data was last revised 2022. Testing performed by: [facility], [address] [place] [address]., [address] Calcium 9.3 8.5 - 10.3 mg/dL CORNELIO Comment:Testing performed by : [facility], [address] [place] [address]., [address] Blood 11/24/2024 3:28 AM CDT 11/24/2024 5:00 AM CDT Eliana Avitia NP LAB BLOOD ORDERABLES Final Result Performing Organization Address [facility] Co de Phone Number [facility] [address] [facility] [place] [address] * Cryptosporidium and Giardia antigen assay Stool Per Rectum (11/23/2024 6:52 PM CDT) Giardia Ag Negative Negative Comment:Testing performed by : [facility], [address] [place]., [address] Cryptosporidium Ag Negative Negative CORNELIO Comment: Interpretive data: Testing performed by the [facility] using an immunoassay that detects Cryptosporidium and Giardia antigens in stool specimens. If comprehensive examination for ova and parasites is required, please request Ova and Parasite Examination. Testing performed by: [facility], [address] [place]., [address] Stool (Per rectum) 11/23/2024 6:52 PM CDT 11/23/2024 9:12 PM CDT us Isrrael Newton MD LAB MICROBIOLOGY - GENERA L ORDERABLES Final Result Performing Organization Address City/[facility] Co de Phone Number [facility] [address] [facility] [place] [address] * Stool culture Stool Rectum (11/23/2024 6:52 PM CDT) Direct Specimen Exam Shiga Toxin Testing: Antigen detection assay for Shiga-toxin NEGATIVE for Shiga Toxin 1 and Shiga Toxin 2. Comment:Testing performed by : [facility], [address] [facility], [place]., [address] Report Final Report: No growth of enteric bacterial pathogens CORNELIO Comment:Testing performed by : [facility], [address] [place]., [address] Stool (Rectum) 11/23/2024 6: 52 PM CDT 11/23/2024 9:12 PM CDT Narrative CORNELIO TORRES - 11/27/2024 8:44 AM CDT Testing performed by [facility] ([phone]). Routine stool cultures include procedures to detect Salmonella, Shigella, Edwardsiella, Aeromonas, Pleisiomonas, Campylobacter, Yersinia, E. coli O157, and Shiga-like toxins. Vibrio is cultured only upon special request. If Vibrio is suspected, please call the laboratory at [phone]. Interpretive data was last updated August 27, 2016. us Isrrael Newton MD LAB MICROBIOLOGY - GENERA L ORDERABLES Final Result CORNELIO [address] [facility] Department [place] [address] * eGFR (11/23/2024 5:47 AM CDT) eGFR 77 >=60 mL/min/1. 73 m2 Comment: Interpretive Data Reference Interval Normal >/= 90 mL/min/1.73m2 Mildly decreased* 60 - 89 mL/min/1.73m2 Mildly to moderately decreased 45 - 59 mL/min/1.73m2 Moderately to severely decreased 30 - 44 mL/min/1.73m2 Severely decreased 15 - 29 mL/min/1.73m2 Kidney Failure < 15 mL/min/1.73m2 *Relative to young adult level Estimated glomerular filtration rate is determined by the 2020 CKD-EPI equation recommended by the National Kidney Foundation (A Unifying Approach to GFR Estimation: Recommendations of the NKF-ASK Task Force on Reassessing the Inclusion of Race in Diagnosing Kidney Disease, JASN 2020). The CKD-EPI equation should not be used for patients with unstable renal function and has not been validated in children and those over 70. Current interpretive data was last reviewed 2021. Testing performed by: [address] [address] Blood 11/23/2024 5:47 AM CDT 11/23/2024 6:23 AM CDT Eliana Avitia NP LAB BLOOD ORDERABLES Final Result [facility] [address] [facility] [place] [address] * (ABNORMAL) Differential, auto (11/23/2024 5:47 AM CDT) Neutrophil abs 1.34(L) 1.50 - 6.50 K/cumm Comment:Testing performed by : [address] [address] Imm gran abs 0.01 0.00 - 0.10 K/cumm CORNELIO Comment:Testing performed by : [address] [address] Lymphocyte abs 0.09(L) 0.80 - 3.30 K/cumm CORNELIO Comment:Testing performed by : [address] [address] Monocyte abs 0.53 0.20 - 0.80 K/cumm CORNELIO Comment:Testing performed by : [address] [address] Eosinophil abs 0.14 0.00 - 0.50 K/cumm CORNELIO Comment:Testing performed by : [address] [address] Basophil abs 0.01 0.00 - 0.10 K/cumm CORNELIO Comment:Testing performed by : [address] [address] Neutrophil pct 63.2 % CORNELIO Comment: Interpretive Data Percent cell count reference ranges are not reported, since discordance with absolute values may lead to misinterpretation of CBC data. Current Interpretive Data was last revised on 2017. Testing performed by: [address] [address] Imm gran pct 0.5 % [facility] Comment: Interpretive Data Percent cell count reference ranges are not reported, since discordance with absolute values may lead to misinterpretation of CBC data. Current Interpretive Data was last revised on 2017. Testing performed by: [address] [address] Lymphocyte pct 4.2 % [facility] Comment: Interpretive Data Percent cell count reference ranges are not reported, since discordance with absolute values may lead to misinterpretation of CBC data. Current Interpretive Data was last revised on 2017. Testing performed by: [address] [address] Monocyte pct 25.0 % [facility] Comment: Interpretive Data Percent cell count reference ranges are not reported, since discordance with absolute values may lead to misinterpretation of CBC data. Current Interpretive Data was last revised on 2017. Testing performed by: [address] [address] Eosinophil pct 6.6 % [facility] Comment: Interpretive Data Percent cell count reference ranges are not reported, since discordance with absolute values may lead to misinterpretation of CBC data. Current Interpretive Data was last revised on 2017. Testing performed by: [address] [address] Basophil pct 0.5 % [facility] Comment: Interpretive Data Percent cell count reference ranges are not reported, since discordance with absolute values may lead to misinterpretation of CBC data. Current Interpretive Data was last revised on 2017. Testing performed by: [address] [address] Blood 11/23/2024 5:47 AM CDT 11/23/2024 6:23 AM CDT us Eliana Avitia NP LAB BLOOD ORDERABLES Final Result CORNELIO [address] [facility] Department of Laboratories [place], [place] [id number] * (ABNORMAL) CBC with auto differential (11/23/2024 5:47 AM CDT) [facility] WBC 2.12(L) 3.80 - 9.90 K/cumm Comment:Testing performed by : [address], [address] Hgb 11.0(L) 13.0 - 17.5 g/dL CORNELIO Comment:Testing performed by : [address], [address] Hct 32.8(L) 38.9 - 50.3 % CORNELIO Comment:Testing performed by : [address], [address] Plt 96(L) 150 - 400 K/cumm CORNELIO Comment:Testing performed by : [address], [address] MPV 9.9 9.1 - 12.3 fL CERRAMIRO Comment:Testing performed by : [address], [address] RBC 3.56(L) 4.30 - 5.80 M/cumm CORNELIO Comment:Testing performed by : [address], [address] MCV 92.1 81.3 - 96.4 fL CORNELIO Comment:Testing performed by : [address] [address] MCH 30.9 27.1 - 33.3 pg CERRAMIRO Comment:Testing performed by : [address], [address] MCHC 33.5 32.3 - 35.7 g/dL CORNELIO Comment:Testing performed by : [address], [address] RDW CV 16.9(H) 11.1 - 14.9 % CORNELIO Comment:Testing performed by : [address], [address] RDW SD 53.9(H) 35.7 - 48.1 fL CORNELIO Comment:Testing performed by : [address], [address] NRBC abs 0.00 0.00 - 0.01 K/cumm CORNELIO Comment:Testing performed by : [address] [address] Blood 11/23/2024 5:47 AM CDT 11/23/2024 6:23 AM CDT us Eliana Avitia CORPORATE SAFETY COORDINATOR LAB BLOOD ORDERABLES Final Result CORNELIO [address] [facility] Department [place] [address] * (ABNORMAL) Basic metabolic panel (11/23/2024 5:47 AM CDT) Sodium 142 135 - 145 mmol/L Comment:Testing performed by : [address] [address] Potassium, pl 4.5 3.3 - 4.9 mmol/L CORNELIO Comment:Testing performed by : [address] [address] Chloride 109 97 - 110 mmol/L CORNELIO Comment:Testing performed by : [address] [address] CO2 21(L) 22 - 32 mmol/L CORNELIO Comment:Testing performed by : [address] [address] Anion gap 12 2 - 15 mmol/L CORNELIO Comment:Testing performed by : [address] [address] BUN 16 6 - 25 mg/dL CORNELIO Comment:Testing performed by : [address] [address] Creatinine 1.00 0.80 - 1.30 mg/dL CORNELIO Comment:Testing performed by : [address] [address] Glucose 92 70 - 199 mg/dL CORNELIO Comment: Interpretive Data Fasting glucose >/= 126 mg/dl is diagnostic for diabetes. Fasting is defined as no caloric intake for at least 8 hours. Fasting glucose between 100 mg/dl to 125 mg/dl is diagnostic of prediabetes. In a patient with classic symptoms of hyperglycemia or hyperglycemic crisis, a random glucose >/= 200 mg/dl is diagnostic for diabetes. In the absence of unequivocal hyperglycemia, results should be confirmed by repeat testing. The classification and Diagnosis of Diabetes Diabetes Care 202; 46: S19-S40. Current interpretive data was last revised 2022. Testing performed by: [facility], [address] [place] [address]., [address] Calcium 8.9 8.5 - 10.3 mg/dL CORNELIO TORRES Comment:Testing performed by : [address] [address] Blood 11/23/2024 5:47 AM CDT 11/23/2024 6:23 AM CDT us Eliana Avitia NP LAB BLOOD ORDERABLES Final Result CORNELIO TORRES [address] [facility] Department [place] [address] * eGFR (11/22/2024 7:28 AM CDT) eGFR 76 >=60 mL/min/1. 73 m2 Comment: Interpretive Data Reference Interval Normal >/= 90 mL/min/1.73m2 Mildly decreased* 60 - 89 mL/min/1.73m2 Mildly to moderately decreased 45 - 59 mL/min/1.73m2 Moderately to severely decreased 30 - 44 mL/min/1.73m2 Severely decreased 15 - 29 mL/min/1.73m2 Kidney Failure < 15 mL/min/1.73m2 *Relative to young adult level Estimated glomerular filtration rate is determined by the 2020 CKD-EPI equation recommended by the National [employer] (A Unifying Approach to GFR Estimation: Recommendations of the NKF-ASK Task Force on Reassessing the Inclusion of Race in Diagnosing Kidney Disease, JASN 2020). The CKD-EPI equation should not be used for patients with unstable renal function and has not been validated in children and those over 70. Current interpretive data was last reviewed 2021. Testing performed by: [address] [address] Blood 11/22/2024 7:28 AM CDT 11/22/2024 7:38 AM CDT us Eliana Guardado Sadi CORPORATE SAFETY COORDINATOR LAB BLOOD ORDERABLES Final Result CORNELIO [address] [facility] Department [place] [address] * (ABNORMAL) Differential, auto (11/22/2024 7:28 AM CDT) Neutrophil abs 1.90 1.50 - 6.50 K/cumm Comment:Testing performed by : [address] [address] Imm gran abs 0.00 0.00 - 0.10 K/cumm CORNELIO Comment:Testing performed by : [address] [address] Lymphocyte abs 0.09(L) 0.80 - 3.30 K/cumm CORNELIO Comment:Testing performed by : [address] [address] Monocyte abs 0.52 0.20 - 0.80 K/cumm CORNELIO Comment:Testing performed by : [address] [address] Eosinophil abs 0.10 0.00 - 0.50 K/cumm CORNELIO Comment:Testing performed by : [address] [address] Basophil abs 0.01 0.00 - 0.10 K/cumm CORNELIO Comment:Testing performed by : [address] [address] Neutrophil pct 72.6 % CORNELIO Comment: Interpretive Data Percent cell count reference ranges are not reported, since discordance with absolute values may lead to misinterpretation of CBC data. Current Interpretive Data was last revised on 2017. Testing performed by: [address] [address] Imm gran pct 0.0 % CORNELIO Comment: Interpretive Data Percent cell count reference ranges are not reported, since discordance with absolute values may lead to misinterpretation of CBC data. Current Interpretive Data was last revised on 2017. Testing performed by: [address] [address] Lymphocyte pct 3.4 % [facility] Comment: Interpretive Data Percent cell count reference ranges are not reported, since discordance with absolute values may lead to misinterpretation of CBC data. Current Interpretive Data was last revised on 2017. Testing performed by: [address] [address] Monocyte pct 19.8 % [facility] Comment: Interpretive Data Percent cell count reference ranges are not reported, since discordance with absolute values may lead to misinterpretation of CBC data. Current Interpretive Data was last revised on 2017. Testing performed by: [address] [address] Eosinophil pct 3.8 % [facility] Comment: Interpretive Data Percent cell count reference ranges are not reported, since discordance with absolute values may lead to misinterpretation of CBC data. Current Interpretive Data was last revised on 2017. Testing performed by: [address] [address] Basophil pct 0.4 % [facility] Comment: Interpretive Data Percent cell count reference ranges are not reported, since discordance with absolute values may lead to misinterpretation of CBC data. Current Interpretive Data was last revised on 2017. Testing performed by: [address] [address] Blood 11/22/2024 7:28 AM CDT 11/22/2024 7:39 AM CDT us Eliana Avitia CORPORATE SAFETY COORDINATOR LAB BLOOD ORDERABLES Final Result CORNELIO TORRES [address] [facility] Department [place] [address] * (ABNORMAL) CBC with auto differential (11/22/2024 7:28 AM CDT) WBC 2.62(L) 3.80 - 9.90 K/cumm Comment:Testing performed by : [address], [address] Hgb 10.4(L) 13.0 - 17.5 g/dL CORNELIO Comment:Testing performed by : [address], [address] Hct 31.9(L) 38.9 - 50.3 % CORNELIO Comment:Testing performed by : [address] [address] Plt 96(L) 150 - 400 K/cumm CORNELIO Comment:Testing performed by : [address], [address] MPV 9.9 9.1 - 12.3 fL CORNELIO Comment:Testing performed by : [address], [address] RBC 3.43(L) 4.30 - 5.80 M/cumm CORNELIO Comment:Testing performed by : [address], [address] MCV 93.0 81.3 - 96.4 fL CORNELIO Comment:Testing performed by : [address], [address] MCH 30.3 27.1 - 33.3 pg CORNELIO Comment:Testing performed by : [address], [address] MCHC 32.6 32.3 - 35.7 g/dL CORNELIO Comment:Testing performed by : [address], [address] RDW CV 16.8(H) 11.1 - 14.9 % CORNELIO Comment:Testing performed by : [address], [address] RDW SD 53.0(H) 35.7 - 48.1 fL CORNELIO Comment:Testing performed by : [address], [address] NRBC abs 0.00 0.00 - 0.01 K/cumm CORNELIO Comment:Testing performed by : [address], [address] Blood 11/22/2024 7:28 AM CDT 11/22/2024 7:39 AM CDT Eliana Avitia NP LAB BLOOD ORDERABLES Final Result [facility] [address] [facility] Department [place] [address] * Basic metabolic panel (11/22/2024 7:28 AM CDT) Sodium 141 135 - 145 mmol/L Comment:Testing performed by : [address] [address] Potassium, pl 3.6 3.3 - 4.9 mmol/L CORNELIO Comment:Testing performed by : [address] [address] Chloride 108 97 - 110 mmol/L CORNELIO Comment:Testing performed by : [address] [address] CO2 23 22 - 32 mmol/L CORNELIO Comment:Testing performed by : [address] [address] Anion gap 10 2 - 15 mmol/L CORNELIO Comment:Testing performed by : [address] [address] BUN 15 6 - 25 mg/dL CORNELIO Comment:Testing performed by : [address] [address] Creatinine 1.01 0.80 - 1.30 mg/dL CORNELIO Comment:Testing performed by : [address] [address] Glucose 98 70 - 199 mg/dL CORNELIO Comment: Interpretive Data Fasting glucose >/= 126 mg/dl is diagnostic for diabetes. Fasting is defined as no caloric intake for at least 8 hours. Fasting glucose between 100 mg/dl to 125 mg/dl is diagnostic of prediabetes. In a patient with classic symptoms of hyperglycemia or hyperglycemic crisis, a random glucose >/= 200 mg/dl is diagnostic for diabetes. In the absence of unequivocal hyperglycemia, results should be confirmed by repeat testing. The classification and Diagnosis of Diabetes Diabetes Care 202; 46: S19-S40. Current interpretive data was last revised 2022. Testing performed by: [address] [address] Calcium 8.7 8.5 - 10.3 mg/dL CORNELIO Comment:Testing performed by : [address] [address] Blood 11/22/2024 7:28 AM CDT 11/22/2024 7:38 AM CDT Eliana Avitia NP LAB BLOOD ORDERABLES Final Result Performing Organization Address [facility] Co de Phone Number [address] [place] [address] * Sepsis Lactate w/ Reflex (11/21/2024 3:10 PM CDT) Sepsis Lactate 1.9 0.7 - 2.0 mmol/L Comment:Testing performed by : [address] [address] Blood 11/21/2024 3:10 PM CDT 11/21/2024 3:20 PM CDT us Bertin Reno MD LAB BLOOD ORDERABLES Fi nal Result Performing Organization Address [facility] Co de Phone Number [address] [address] * (ABNORMAL) Urinalysis reflex to microscopic and culture Urine (11/21/2024 1:58 PM CDT) Color, ur Yellow Yellow Comment:Testing performed by : [address] [address] Clarity, ur Clear Clear CORNELIO TORRES Comment:Testing performed by : [address] [address] Specific gravity, ur >1.050(A) 1.003 - 1.030 CORNELIO TORRES Comment:Testing performed by : [address] [address] pH, urine 6.0 CORNELIO Comment: Interpretive Data U rine pH is affected by diet, medications, systemic acid-base disturbances, and renal tubular function. pH may affect urinary stone formation. For example, urine pH below 6.0 may help reduce the tendency for calcium phosphate stones and pH greater than 6.0 may reduce the tendency for uric acid stone formation. Source: [facility] [employer] Current Interpretive Data was last revised on 2017 Testing performed by: [address] [address] Protein, ur ql 1+(A) Negative CORNELIO Comment:Testing performed by : [address] [address] Glucose, ur ql Negative Negative CORNELIO Comment:Testing performed by : [address] [address] Ketones, ur 1+(A) Negative CORNELIO Comment:Testing performed by : [address] [address] Bilirubin, ur Negative Negative CORNELIO Comment:Testing performed by : [address] [address] Blood, ur 1+(A) Negative CORNELIO Comment:Testing performed by : [address] [address] Urobilinogen, ur <2.0 <2.0 mg/dL CORNELIO Comment:Testing performed by : [address] [address] Nitrite, ur Positive(A) Negative CORNELIO Comment:Testing performed by : [address] [address] Leukocyte esterase, ur 2+(A) Negative CORNELIO Comment:Testing performed by : [address] [address] UA reflex comment Reflex to microscopic UA will be performed. CORNELIO Comment:Testing performed by : [address] [address] Urine 11/21/2024 1:58 PM CDT 11/21/2024 2:03 PM CDT Bertin Reno MD LAB MICROBIOLOGY - GENE RAL ORDERABLES Final Result Performing Organization Address [facility] Co de Phone Number CORNELIO [address] [place] [address] * (ABNORMAL) Urinalysis, microscopic only (11/21/2024 1:58 PM CDT) WBC, ur >50(A) 0 - 5 /HPF Comment:Testing performed by : [facility], [address] [place] [address]., [address] RBC, ur >50(A) 0 - 2 /HPF CORNELIO Comment:Testing performed by : [address] [address] Epithelial cells, squamous, ur >50(A) 0 - 5 /HPF CORNELIO Comment:Testing performed by : [address] [address] Bacteria, ur 4+(A) CORNELIO Comment:Testing performed by : [address] [address] Mucous, ur Present(A) CORNELIO Comment:Testing performed by : [address] [address] Culture Reflex Comment Reflex to urine culture will be performed. CORNELIO Comment:Testing performed by : [address] [address] Urine 11/21/2024 1:58 PM CDT 11/21/2024 2:03 PM CDT us Bertin Reno MD LAB URINE ORDERABLES Fi nal Result Performing Organization Address City/[facility] Co de Phone Number CORNELIO [address] [place] [address] * (ABNORMAL) Urine culture Urine (11/21/2024 1:58 PM CDT) Report Final Report: Greater than or equal to 100,000 colonies/mL of Escherichia coli Greater than or equal to 100,000 colonies/mL of Klebsiella pneumoniae (.) Comment:Testing performed by : [facility], [address] [place]., [address] Organism ESCHERICHIA COLI CORNELIO Organism KLEBSIELLA PNEUMONIAE CORNELIO Urine 11/21/2024 1:58 PM CDT 11/21/2024 5:13 PM CDT Narrative CORNELIO - 11/23/2024 8:45 AM CDT Urine culture reflexed based upon urinalysis results. Testing performed by [facility] ([phone]) Organism Antibiotic Method Susceptibility Escherichia coli Ampicillin INTERPRETATION Susceptible Escherichia coli Cefazolin INTERPRETATION Susceptible Escherichia coli Nitrofurantoin INTERPRETATION Susceptible Escherichia coli Gentamicin INTERPRETATION Susceptible Escherichia coli Trimethoprim with Sulfamethoxazole INTERPRETATION Susceptible Escherichia coli Meropenem INTERPRETATION Susceptible Escherichia coli Cefepime INTERPRETATION Susceptible Escherichia coli Ciprofloxacin INTERPRETATION Susceptible Escherichia coli Ceftazidime INTERPRETATION Susceptible Escherichia coli Ceftriaxone INTERPRETATION Susceptible Escherichia coli Piperacillin/Tazobactam INTERPRETATIO N Susceptible Escherichia coli Cephalexin INTERPRETATION Susceptible Escherichia coli Cefuroxime-axetil INTERPRETATION Susceptible Escherichia coli Cefdinir INTERPRETATION Susceptible Klebsiella pneumoniae Ampicillin INTERPRETATION Resistant Klebsiella pneumoniae Cefazolin INTERPRETATION Susceptible Klebsiella pneumoniae Nitrofurantoin INTERPRETATION Resistant Klebsiella pneumoniae Gentamicin INTERPRETATION Susceptible Klebsiella pneumoniae Trimethoprim with Sulfamethoxazole INTERPRETATION Intermediate Klebsiella pneumoniae Meropenem INTERPRETATION Susceptible Klebsiella pneumoniae Cefepime INTERPRETATION Susceptible Klebsiella pneumoniae Ciprofloxacin INTERPRETATION Susceptible Klebsiella pneumoniae Ceftazidime INTERPRETATION Susceptible Klebsiella pneumoniae Ceftriaxone INTERPRETATION Susceptible Klebsiella pneumoniae Piperacillin/Tazobactam INTERPRE TATION Susceptible Klebsiella pneumoniae Cephalexin INTERPRETATION Susceptible Klebsiella pneumoniae Cefuroxime-axetil INTERPRETATION Susceptible Klebsiella pneumoniae Cefdinir INTERPRETATION Susceptible Bertin Reno MD LAB MICROBIOLOGY - [facility] ORDERABLES Final Result JOSERAMIRO [address] [facility] [place] [address] * (ABNORMAL) Sepsis Lactate w/ Reflex (11/21/2024 11:24 AM CDT) Sepsis Lactate 2.3(H) 0.7 - 2.0 mmol/L Comment:Testing performed by : [facility], [address] [place] [address]., [address] Blood 11/21/2024 11:2 4 AM CDT 11/21/2024 11:28 AM CDT us Bertin Reno MD LAB BLOOD ORDERABLES Fi nal Result CORNELIO MH [address] [facility] [place] [address] * CT Abdomen Pelvis W Contrast (11/21/2024 11:13 AM CDT) Anatomical Region Laterality Modality Body N/A Computed Tomogra phy 11/21/2024 11:3 0 AM CDT Narrative 11/21/2024 11:55 AM CDT EXAM DESCRIPTION: CT ABDOMEN PELVIS W CONTRAST REASON FOR STUDY: nausea and vomiting, dementia, n,v history of rectal cancer and A-fib, started having nausea, vomiting, and diarrhea today at 0430. Denies any pain currently. Currently undergoing chemo and radiation TECHNIQUE: CT scan of the abdomen and pelvis performed with intravenous and without oral contrast using helical scanning technique with dynamic intravenous contrast injection. Reconstructed coronal and sagittal MPR images reviewed. All images stored on PACS. Automated exposure control was used as a dose optimization technique for this examination. CONTRAST TYPE/DOSE: 100mL of IOVERSOL 350 MG IODINE/ML INTRAVENOUS SYRINGE injected COMPARISON: 09/12/2023 FINDINGS: LOWER CHEST: Mild scattered subsegmental atelectasis. No pleural effusion. Mild cardiomegaly. Imaged portions of the esophagus are within normal limits. LIVER: There is hepatic surface nodularity with a relatively shrunken liver most compatible with hepatic cirrhosis. Calcified hepatic granulomas are present. There is a 2 mm hypoattenuating lesion in the hepatic dome at slice position 20 which is too small to characterize and was not definitively identified on CT 09/11/2024. The hepatic and portal veins are patent. GALLBLADDER: Prior cholecystectomy. BILE DUCTS: Mild intrahepatic biliary ductal dilatation with normal caliber of the extrahepatic bile ducts most likely due to prior cholecystectomy and reservoir effect. SPLEEN: Normal size. No focal lesions. Calcified splenic granulomas. PANCREAS: There is a hypoattenuating structure within the pancreatic uncinate process which is unchanged compared to prior study measuring up to 17 mm which could reflect a side branch intraductal papillary mucinous neoplasm, pancreatic cyst, or other cystic pancreatic lesion. There is moderate pancreatic atrophy.. No significant calcifications. No adjacent inflammation or peripancreatic fluid collections. Pancreatic duct not dilated. ADRENALS: Normal. KIDNEYS/URINARY TRACT: No identified significant cystic or solid masses. No visualized stones. No hydronephrosis or hydroureter. Symmetric enhancement. There is mild circumferential thickening of the urinary bladder wall which could be due to incomplete distension or sequela of chronic bladder outlet obstruction given moderate enlargement of the prostate gland. GI: The stomach is normal. There is mild mucosal hyperemia of several nondilated fluid-filled segments of small bowel throughout the abdomen which could reflect mild enteritis or reflect a rapid bowel transit state. The appendix is normal. Liquid/semi liquid stool within the cecum, ascending colon and segments of transverse colon reflective of rapid bowel transit state. There has been interval decrease in size of poorly defined anorectal mass in this patient with known history of primary cancer at this region. PERITONEUM: No ascites or free air. No lymphadenopathy. RETROPERITONEUM: No mass or adenopathy. REPRODUCTIVE: Moderate enlargement and heterogeneous enhancement of the prostate gland imposing mass-effect upon the base of the urinary bladder. VASCULATURE: No abdominal aortic aneurysm. The abdominal aorta and its branches are patent. MUSCULOSKELETAL: No acute fractures or aggressive bone lesions. Diffuse osteopenia. IMPRESSION: 1. Mild mucosal hyperemia of several nondilated fluid-filled segments of small bowel throughout the abdomen which could reflect mild enteritis or reflect a rapid bowel transit state. 2. Liquid/semi liquid stool within the cecum, ascending colon and segments of transverse colon reflective of rapid bowel transit state. 3. Interval decrease in size of poorly defined anorectal mass in this patient with known history of primary cancer at this region. 4. No definitive CT evidence of metastases in the abdomen or pelvis. THIS IS AN ELECTRONICALLY VERIFIED FINAL REPORT 11/21/2024 11:55 AM - Electronically signed by Shadia Harris M.D. AT: AT Report ID: [id number] Reading Location: [place] [address] Procedure Note Shadia Harris MD - 11/21/2024 EXAM DESCRIPTION: CT ABDOMEN PELVIS W CONTRAST REASON FOR STUDY: nausea and vomiting, dementia, n,v history of rectal cancer and A-fib, started having nausea, vomiting, and diarrhea today at 0430. Denies any pain currently. Currently undergoingchemo and radiation TECHNIQUE: CT scan of the abdomen and pelvis performed with intravenousand without oral contrast using helical scanning technique with dynamic intravenous contrast injection. Reconstructed coronal and sagittal MPRimages reviewed. All images stored on PACS. Automated exposure control was usedas a dose optimization technique for this examination. CONTRAST TYPE/DOSE: 100mL of IOVERSOL 350 MG IODINE/ML INTRAVENOUSSYRINGE injected COMPARISON: 09/12/2023 FINDINGS: LOWER CHEST: Mild scattered subsegmental atelectasis. Nopleural effusion. Mild cardiomegaly. Imaged portions of the esophagus are within normal limits. LIVER: There is hepatic surface nodularity with a relatively shrunkenliver most compatible with hepatic cirrhosis. Calcified hepatic granulomas are present. There is a 2 mm hypoattenuating lesion in the hepatic dome atslice position 20 which is too small to characterize and was not definitively identified on CT 09/11/2024. The hepatic and portal veins are patent. GALLBLADDER: Prior cholecystectomy. BILE DUCTS: Mild intrahepatic biliary ductal dilatation with normalcaliber of the extrahepatic bile ducts most likely due to prior cholecystectomyand reservoir effect. SPLEEN: Normal size. No focal lesions. Calcified splenic granulomas. PANCREAS: There is a hypoattenuating structure within the pancreaticuncinate process which is unchanged compared to prior study measuring up to 17 mmwhich could reflect a side branch intraductal papillary mucinous neoplasm, pancreatic cyst, or other cystic pancreatic lesion. There is moderate pancreatic atrophy.. No significant calcifications. No adjacentinflammation or peripancreatic fluid collections. Pancreatic duct not dilated. ADRENALS: Normal. KIDNEYS/URINARY TRACT: No identified significant cystic or solid masses.No visualized stones. No hydronephrosis or hydroureter. Symmetricenhancement. There is mild circumferential thickening of the urinary bladder wall which could be due to incomplete distension or sequela of chronic bladder outlet obstruction given moderate enlargement of the prostate gland. GI: The stomach is normal. There is mild mucosal hyperemia of several nondilated fluid-filled segments of small bowel throughout the abdomenwhich could reflect mild enteritis or reflect a rapid bowel transit state. The appendix is normal. Liquid/semi liquid stool within the cecum, ascending colon and segments of transverse colon reflective of rapid bowel transit state. There has been interval decrease in size of poorly definedanorectal mass in this patient with known history of primary cancer at this region. PERITONEUM: No ascites or free air. No lymphadenopathy. RETROPERITONEUM: No mass or adenopathy. REPRODUCTIVE: Moderate enlargement and heterogeneous enhancement of the prostate gland imposing mass-effect upon the base of the urinary bladder. VASCULATURE: No abdominal aortic aneurysm. The abdominal aorta and its branches are patent. MUSCULOSKELETAL: No acute fractures or aggressive bone lesions. Diffuse osteopenia. IMPRESSION: 1. Mild mucosal hyperemia of several nondilated fluid-filled segments of small bowel throughout the abdomen which could reflect mild enteritis or reflect a rapid bowel transit state. 2. Liquid/semi liquid stool within the cecum, ascending colon andsegments of transverse colon reflective of rapid bowel transit state. 3. Interval decrease in size of poorly defined anorectal mass in thispatient with known history of primary cancer at this region. 4. No definitive CT evidence of metastases in the abdomen or pelvis. THIS IS AN ELECTRONICALLY VERIFIED FINAL REPORT 11/21/2024 11:55 AM - Electronically signed by Shadia Harris M.D. AT: AT Report ID: [id number] Reading Location: [place] [address] Bertin Reno MD IMG CT PROCEDURES Final Result * eGFR (11/21/2024 9:41 AM CDT) eGFR 67 >=60 mL/min/1. 73 m2 Comment: Interpretive Data Reference Interval Normal >/= 90 mL/min/1.73m2 Mildly decreased* 60 - 89 mL/min/1.73m2 Mildly to moderately decreased 45 - 59 mL/min/1.73m2 Moderately to severely decreased 30 - 44 mL/min/1.73m2 Severely decreased 15 - 29 mL/min/1.73m2 Kidney Failure < 15 mL/min/1.73m2 *Relative to young adult level Estimated glomerular filtration rate is determined by the 2020 CKD-EPI equation recommended by the National Kidney Foundation (A Unifying Approach to GFR Estimation: Recommendations of the NKF-ASK Task Force on Reassessing the Inclusion of Race in Diagnosing Kidney Disease, JASN 2020). The CKD-EPI equation should not be used for patients with unstable renal function and has not been validated in children and those over 70. Current interpretive data was last reviewed 2021. Testing performed by: [address] [address] Blood 11/21/2024 9:41 AM CDT 11/21/2024 9:47 AM CDT us Bertin Reno MD LAB BLOOD ORDERABLES Fi nal Result [facility] [place] [address] * (ABNORMAL) Differential, auto (11/21/2024 9:41 AM CDT) Neutrophil abs 4.99 1.50 - 6.50 K/cumm Comment:Testing performed by : [address] [address] Imm gran abs 0.02 0.00 - 0.10 K/cumm COR[facility]ELIO Comment:Testing performed by : [address] [address] Lymphocyte abs 0.06(L) 0.80 - 3.30 K/cumm COR[facility]IO Comment:Testing performed by : [address] [address] Monocyte abs 0.41 0.20 - 0.80 K/cumm COR[facility]IO Comment:Testing performed by : [address] [address] Eosinophil abs 0.01 0.00 - 0.50 K/cumm [facility] Comment:Testing performed by : [address] [address] Basophil abs 0.02 0.00 - 0.10 K/cumm COR[facility] Comment:Testing performed by : [address] [address] Neutrophil pct 90.5 % COR[facility] Comment: Interpretive Data Percent cell count reference ranges are not reported, since discordance with absolute values may lead to misinterpretation of CBC data. Current Interpretive Data was last revised on 2017. Testing performed by: [address] [address] Imm gran pct 0.4 % [facility] Comment: Interpretive Data Percent cell count reference ranges are not reported, since discordance with absolute values may lead to misinterpretation of CBC data. Current Interpretive Data was last revised on 2017. Testing performed by: [address] [address] Lymphocyte pct 1.1 % [facility] Comment: Interpretive Data Percent cell count reference ranges are not reported, since discordance with absolute values may lead to misinterpretation of CBC data. Current Interpretive Data was last revised on 2017. Testing performed by: [address] [address] Monocyte pct 7.4 % [facility] Comment: Interpretive Data Percent cell count reference ranges are not reported, since discordance with absolute values may lead to misinterpretation of CBC data. Current Interpretive Data was last revised on 2017. Testing performed by: [address] [address] Eosinophil pct 0.2 % [facility] Comment: Interpretive Data Percent cell count reference ranges are not reported, since discordance with absolute values may lead to misinterpretation of CBC data. Current Interpretive Data was last revised on 2017. Testing performed by: [address] [address] Basophil pct 0.4 % [facility] Comment: Interpretive Data Percent cell count reference ranges are not reported, since discordance with absolute values may lead to misinterpretation of CBC data. Current Interpretive Data was last revised on 2017. Testing performed by: [address] [address] Blood 11/21/2024 9:41 AM CDT 11/21/2024 9:47 AM CDT Bertin Reno MD LAB BLOOD ORDERABLES nal Result [facility] [address] [facility] Department [place] [address] * (ABNORMAL) CBC with auto differential (11/21/2024 9:41 AM CDT) [facility] Signature WBC 5.51 3.80 - 9.90 K/cumm Comment:Testing performed by : [address] [address] Hgb 11.2(L) 13.0 - 17.5 g/dL [facility] Comment:Testing performed by : [address] [address] Hct 33.5(L) 38.9 - 50.3 % [facility] Comment:Testing performed by : [address] [address] Plt 115(L) 150 - 400 K/cumm [facility] Comment:Testing performed by : [address] [address] MPV 9.9 9.1 - 12.3 fL [facility] Comment:Testing performed by : [address] [address] RBC 3.70(L) 4.30 - 5.80 M/cumm [facility] Comment:Testing performed by : [address] [address] MCV 90.5 81.3 - 96.4 fL [facility] Comment:Testing performed by : [address] [address] MCH 30.3 27.1 - 33.3 pg [facility] Comment:Testing performed by : [address] [address] MCHC 33.4 32.3 - 35.7 g/dL [facility] Comment:Testing performed by : [address] [address] RDW CV 16.2(H) 11.1 - 14.9 % [facility] Comment:Testing performed by : [address] [address] RDW SD 50.7(H) 35.7 - 48.1 fL [facility] Comment:Testing performed by : [address] [address] NRBC abs 0.00 0.00 - 0.01 K/cumm [facility] Comment:Testing performed by : [address] [address] Blood Venous blood specimen / Unknown 11/21/2024 9:41 AM CDT 11/21/2024 9:47 AM CDT Bertin Reno MD LAB BLOOD ORDERABLES Fi nal Result Performing Organization Address [facility] Co de Phone Number [address] [place] [address] * (ABNORMAL) Phosphorus (11/21/2024 9:41 AM CDT) Phosphorus, pl 2.2(L) 2.3 - 4.5 mg/dL Comment:Testing performed by : [address], [address] Blood 11/21/2024 9:41 AM CDT 11/21/2024 9:47 AM CDT Isrrael Newton MD LAB BLOOD ORDERABLES Pham l Result Performing Organization Address [facility] Co de Phone Number [address] [address] * Magnesium (11/21/2024 9:41 AM CDT) Magnesium 1.6 1.4 - 2.5 mg/dL Comment:Testing performed by : [address] [address] Blood 11/21/2024 9:41 AM CDT 11/21/2024 9:47 AM CDT Isrrael Newton MD LAB BLOOD ORDERABLES Pham l Result Performing Organization Address City/[facility]/ZIP Co de Phone Number [address] [address] * Lipase (11/21/2024 9:41 AM CDT) Pathologist [facility] Lipase 14 10 - 99 Units/L Comment:Testing performed by : [address] [address] Blood 11/21/2024 9:41 AM CDT 11/21/2024 9:47 AM CDT us Bertin Reno MD LAB BLOOD ORDERABLES Ed ited Result - Final Performing Organization Address [facility]/ZIP Co de Phone Number [address] [address] * Calcium level (11/21/2024 9:41 AM CDT) [facility] Calcium 8.8 8.5 - 10.3 mg/dL Comment:Testing performed by : [address] [address] Blood 11/21/2024 9:41 AM CDT 11/21/2024 9:47 AM CDT us Isrrael Newton MD LAB BLOOD ORDERABLES Pham l Result Performing Organization Address City/[facility] Co de Phone Number [address] [address] * (ABNORMAL) Comprehensive metabolic panel (11/21/2024 9:41 AM CDT) [facility] Sodium 140 135 - 145 mmol/L Comment:Testing performed by : [address] [address] Potassium, pl 3.5 3.3 - 4.9 mmol/L [facility] TORRES Comment:Testing performed by : [address] [address] Chloride 106 97 - 110 mmol/L [facility]IO TORRES Comment:Testing performed by : [address] [address] CO2 20(L) 22 - 32 mmol/L COR[facility]IO Comment:Testing performed by : [address] [address] Anion gap 14 2 - 15 mmol/L [facility] Comment:Testing performed by : [address], [place]., [address] BUN 14 6 - 25 mg/dL [facility] Comment:Testing performed by : [address] [address] Creatinine 1.12 0.80 - 1.30 mg/dL [facility] Comment:Testing performed by : [address] [address] Glucose 126 70 - 199 mg/dL [facility] Comment: Interpretive Data Fasting glucose >/= 126 mg/dl is diagnostic for diabetes. Fasting is defined as no caloric intake for at least 8 hours. Fasting glucose between 100 mg/dl to 125 mg/dl is diagnostic of prediabetes. In a patient with classic symptoms of hyperglycemia or hyperglycemic crisis, a random glucose >/= 200 mg/dl is diagnostic for diabetes. In the absence of unequivocal hyperglycemia, results should be confirmed by repeat testing. The classification and Diagnosis of Diabetes Diabetes Care 202; 46: S19-S40. Current interpretive data was last revised 2022. Testing performed by: [address] [address] Calcium 9.2 8.5 - 10.3 mg/dL [facility] Comment:Testing performed by : [address] [address] Bilirubin, total 1.6(H) 0.1 - 1.2 mg/dL [facility] Comment:Testing performed by : [address] [address] Protein, pl 5.8(L) 6.5 - 8.5 g/dL [facility] Comment:Testing performed by : [address] [address] Albumin 3.3(L) 3.5 - 5.0 g/dL [facility] Comment:Testing performed by : [address] [place]., [address] Alk phos 80 40 - 130 Units/L [facility] Comment:Testing performed by : [facility], [address] [place] [address], [address] ALT 26 7 - 55 Units/L COR[facility]IO Comment:Testing performed by : [address], [address] AST 23 10 - 50 Units/L COR[facility] Comment:Testing performed by : [address], [address] Blood Venous blood specimen / Unknown 11/21/2024 9:41 AM CDT 11/21/2024 9:47 AM CDT us Bertin Reno MD LAB BLOOD ORDERABLES Fi nal Result [facility] [address] [facility] Department [place] [address] * RAD ONC ARIA SESSION SUMMARY (11/19/2024 2:57 PM CDT) Course Name [id number] 25 ARIA Course Plan Date 10/01/2024 9:55 AM ARIA Elapsed Days 38 ARIA Treatment Start Date 10/12/2024 ARIA Treatment Site PELVIS_ANU S_[id number] ARIA Dose Given To Date (cGy) 5,040 ARIA Session Dosage Given (cGy) 180 ARIA Plan ID PELVIS_ANU S ARIA Fractions Treated 28 ARIA Prescribed Dose Per Fraction (cGy) 180 ARIA Prescribed Total Dose (cGy) 5,400 ARIA 11/19/2024 2:57 PM CDT us Not In File Miscellaneous RADIATION ONCOLOGY ORD ERABLES Final Result ARIA * RAD ONC ARIA SESSION SUMMARY (11/18/2024 2:49 PM CDT) Course Name [id number] 25 ARIA Course Plan Date 10/01/2024 9:55 AM ARIA Elapsed Days 37 ARIA Treatment Start Date 10/12/2024 ARIA Treatment Site PELVIS_ANU S_[id number] ARIA Dose Given To Date (cGy) 4,860 ARIA Session Dosage Given (cGy) 180 ARIA Plan ID PELVIS_ANU S ARIA Fractions Treated 27 ARIA Prescribed Dose Per Fraction (cGy) 180 ARIA Prescribed Total Dose (cGy) 5,400 ARIA 11/18/2024 2:49 PM CDT us Not In File Miscellaneous RADIATION ONCOLOGY ORD ERABLES Final Result Performing Organization Address City/[facility]/ZIP Co de Phone Number ARIA * RAD ONC ARIA SESSION SUMMARY (11/17/2024 2:41 PM CDT) Course Name [id number] 25 ARIA Course Plan Date 10/01/2024 9:55 AM ARIA Elapsed Days 36 ARIA Treatment Start Date 10/12/2024 ARIA Treatment Site PELVIS_ANU [id number] ARIA Dose Given To Date (cGy) 4,680 ARIA Session Dosage Given (cGy) 180 ARIA Plan ID PELVIS_ANU S ARIA Fractions Treated 26 ARIA Prescribed Dose Per Fraction (cGy) 180 ARIA Prescribed Total Dose (cGy) 5,400 ARIA 11/17/2024 2:41 PM CDT us Not In File Miscellaneous RADIATION ONCOLOGY ORD ERABLES Final Result ARIA * RAD ONC ARIA SESSION SUMMARY (11/16/2024 4:53 PM CDT) Course Name [email or web address] 25 ARIA Course Plan Date 10/01/2024 9:55 AM ARIA Elapsed Days 35 ARIA Treatment Start Date 10/12/2024 ARIA Treatment Site PELVIS_ANU S_[id number] ARIA Dose Given To Date (cGy) 4,500 ARIA Session Dosage Given (cGy) 180 ARIA Plan ID PELVIS_ANU S ARIA Fractions Treated 25 ARIA Prescribed Dose Per Fraction (cGy) 180 ARIA Prescribed Total Dose (cGy) 5,400 ARIA 11/16/2024 4:53 PM CDT Not In File Miscellaneous RADIATION ONCOLOGY ORD ERABLES Final Result MAN[facility] * C. difficile testing Stool (11/16/2024 6:12 AM CDT) [facility] Result Negative Negative Toxin Result Negative Negative [facility] C. diff result Negative, free toxin Negative, free toxin [facility] C. diff interp Negative for toxigenic Clostridioides (Clostridium) difficile. Analysis was performed using a glutamate dehydrogenase antigen detection assay combined with a C. difficile toxin detection assay. [facility] Stool 11/16/2024 6:12 AM CDT 11/16/2024 9:28 AM CDT us Slime Walsh MD LAB MICROBIOLOGY - GE NERAL ORDERABLES Final Result Performing Organization Address [facility] Co de Phone Number [facility] Department [place] [address] * Infection Prevention VRE Culture Stool (11/16/2024 6:12 AM CDT) Report Final Report: Negative Stool 11/16/2024 6:12 AM CDT 11/16/2024 11:29 AM CDT Narrative [facility] - 11/18/2024 12:30 PM CDT Surveillance culture for Infection Prevention purposes only; results indicate colonization, not infection requiring treatment. Testing performed by [facility] ([phone]). us Slime Walsh MD LAB MICROBIOLOGY - GE NERAL ORDERABLES Final Result Performing Organization Address [facility] Co de Phone Number [facility] Department [place] [address] * eGFR (11/16/2024 1:07 AM CDT) Pathologist [facility] eGFR 78 >=60 mL/min/1. 73 m2 Comment: Interpretive Data Reference Interval Normal >/= 90 mL/min/1.73m2 Mildly decreased* 60 - 89 mL/min/1.73m2 Mildly to moderately decreased 45 - 59 mL/min/1.73m2 Moderately to severely decreased 30 - 44 mL/min/1.73m2 Severely decreased 15 - 29 mL/min/1.73m2 Kidney Failure < 15 mL/min/1.73m2 *Relative to young adult level Estimated glomerular filtration rate is determined by the 2020 CKD-EPI equation recommended by the National Kidney Foundation (A Unifying Approach to GFR Estimation: Recommendations of the NKF-ASK Task Force on Reassessing the Inclusion of Race in Diagnosing Kidney Disease, JASN 2020). The CKD-EPI equation should not be used for patients with unstable renal function and has not been validated in children and those over 70. Current interpretive data was last reviewed 2021. Blood 11/16/2024 1:07 AM CDT 11/16/2024 2:08 AM CDT us Slime Walsh MD LAB BLOOD ORDERABLES Final Result [facility] Department [place] [address] * (ABNORMAL) Differential, auto (11/16/2024 1:07 AM CDT) [facility] Neutrophil abs 4.28 1.50 - 6.50 K/cumm Imm gran abs 0.03 0.00 - 0.10 K/cumm [facility] Lymphocyte abs 0.23(L) 0.80 - 3.30 K/cumm [facility] Monocyte abs 0.16(L) 0.20 - 0.80 K/cumm [facility] Eosinophil abs 0.26 0.00 - 0.50 K/cumm [facility] Basophil abs 0.02 0.00 - 0.10 K/cumm [facility] Neutrophil pct 86.0 % [facility] Comment: Interpretive Data Percent cell count reference ranges are not reported, since discordance with absolute values may lead to misinterpretation of CBC data. Current Interpretive Data was last revised on 2017. Imm gran pct 0.6 % [facility] Comment: Interpretive Data Percent cell count reference ranges are not reported, since discordance with absolute values may lead to misinterpretation of CBC data. Current Interpretive Data was last revised on 2017. Lymphocyte pct 4.6 % [facility] Comment: Interpretive Data Percent cell count reference ranges are not reported, since discordance with absolute values may lead to misinterpretation of CBC data. Current Interpretive Data was last revised on 2017. Monocyte pct 3.2 % [facility] Comment: Interpretive Data Percent cell count reference ranges are not reported, since discordance with absolute values may lead to misinterpretation of CBC data. Current Interpretive Data was last revised on 2017. Eosinophil pct 5.2 % [facility] Comment: Interpretive Data Percent cell count reference ranges are not reported, since discordance with absolute values may lead to misinterpretation of CBC data. Current Interpretive Data was last revised on 2017. Basophil pct 0.4 % [facility] Comment: Interpretive Data Percent cell count reference ranges are not reported, since discordance with absolute values may lead to misinterpretation of CBC data. Current Interpretive Data was last revised on 2017. Blood 11/16/2024 1:07 AM CDT 11/16/2024 1:26 AM CDT us Slime Walsh MD LAB BLOOD ORDERABLES Final Result [facility] Department [place] [address] * (ABNORMAL) CBC with auto differential (11/16/2024 1:07 AM CDT) WBC 4.98 3.80 - 9.90 K/cumm Hgb 10.4(L) 13.0 - 17.5 g/dL [facility] Hct 31.4(L) 38.9 - 50.3 % [facility] Plt 143(L) 150 - 400 K/cumm [facility] MPV 10.5 9.1 - 12.3 fL [facility] RBC 3.51(L) 4.30 - 5.80 M/cumm [facility] MCV 89.5 81.3 - 96.4 fL [facility] MCH 29.6 27.1 - 33.3 pg [facility] MCHC 33.1 32.3 - 35.7 g/dL [facility] RDW CV 15.8(H) 11.1 - 14.9 % [facility] RDW SD 50.5(H) 35.7 - 48.1 fL [facility] NRBC abs 0.00 0.00 - 0.01 K/cumm [facility] Blood 11/16/2024 1:07 AM CDT 11/16/2024 1:26 AM CDT Slime Walsh MD LAB BLOOD ORDERABLES Final Result [facility] Department [place] [address] * (ABNORMAL) Comprehensive metabolic panel (11/16/2024 1:07 AM CDT) Sodium 139 135 - 145 mmol/L Potassium, pl 3.9 3.3 - 4.9 mmol/L [facility] Chloride 106 97 - 110 mmol/L [facility] CO2 28 22 - 32 mmol/L [facility] Anion gap 5 2 - 15 mmol/L [facility] BUN 15 6 - 25 mg/dL [facility] Creatinine 0.99 0.80 - 1.30 mg/dL [facility] Glucose 118 70 - 199 mg/dL [facility] Comment: Interpretive Data Fasting glucose >/= 126 mg/dl is diagnostic for diabetes. Fasting is defined as no caloric intake for at least 8 hours. Fasting glucose between 100 mg/dl to 125 mg/dl is diagnostic of prediabetes. In a patient with classic symptoms of hyperglycemia or hyperglycemic crisis, a random glucose >/= 200 mg/dl is diagnostic for diabetes. In the absence of unequivocal hyperglycemia, results should be confirmed by repeat testing. The classification and Diagnosis of Diabetes Diabetes Care 2021; 46: S19-S40. Current interpretive data was last revised 2022. Calcium 7.9(L) 8.5 - 10.3 mg/dL [facility] Bilirubin, total 0.8 0.1 - 1.2 mg/dL [facility] Protein, pl 4.9(L) 6.5 - 8.5 g/dL [facility] Albumin 2.7(L) 3.5 - 5.0 g/dL [facility] Alk phos 76 40 - 130 Units/L [facility] ALT 31 7 - 55 Units/L [facility] AST 16 10 - 50 Units/L [facility] Blood 11/16/2024 1:07 AM CDT 11/16/2024 2:08 AM CDT Slime Walsh MD LAB BLOOD ORDERABLES Final Result [facility] Department [place] [address] * Norovirus PCR Rectal swab (11/15/2024 9:08 PM CDT) Pathologist [facility] Norovirus GI RNA Not Detected Not Detected [facility] Norovirus GII RNA Not Detected Not Detected [facility] Comment: Interpretive data: Testing performed at the [facility] using the [employer] Xpert Norovirus Assay. This assay uses nucleic acid amplification to detect RNA from norovirus. This test is cleared by the [place] Food and Drug Administration for unformed stool specimens. The performance characteristics for unformed stool specimens have been verified by the performing laboratory. The performance characteristics of rectal swab specimens have also been validated and verified by the performing laboratory. Positive Xpert Norovirus results do not rule out other causes of infectious diarrhea. Assay interference may be observed in the presence of Barium sulfate and Benzalkonium chloride. Mutations or polymorphisms in primer or probe binding regions may affect detection of new or unknown norovirus variants resulting in a false negative result. Results from the Xpert Norovirus Assay should be interpreted in conjunction with other laboratory and clinical data available to the clinician. Current interpretive data was last revised on 2024. Rectal swab 11/15/2024 9:08 PM CDT 11/15/2024 9:26 PM CDT Slime Walsh MD LAB MICROBIOLOGY - NERAL ORDERABLES Final Result [facility] [place] [address] [facility] * ECG 12 lead (11/15/2024 1:32 PM CDT) Ventricular Rate EKG/Min 61 BPM [facility] Atrial Rate 86 BPM [facility] QRS-Interval (MSEC) 88 ms [facility] QT-Interval (MSEC) 450 ms [facility] QTc 453 ms [facility] R [place] 0 degrees [facility] T [place] -9 degrees [facility] Diagnosis Atrial fibrillation/f lutter Abnormal ECG When compared with ECG of 11-NOV-2024 10:43, No significant change was found Confirmed by TOMMIE RUCKER M.D ([id number]) on 11/16/2024 5:39:22 PM [facility] 11/15/2024 1:32 PM CDT 11/16/2024 5:39 PM CDT us Slime Walsh MD ECG ORDERABLES Final Result Performing Organization Address City/[facility] Co de Phone Number [facility] * eGFR (11/15/2024 1:02 AM CDT) eGFR 83 >=60 mL/min/1. 73 m2 Comment: Interpretive Data Reference Interval Normal >/= 90 mL/min/1.73m2 Mildly decreased* 60 - 89 mL/min/1.73m2 Mildly to moderately decreased 45 - 59 mL/min/1.73m2 Moderately to severely decreased 30 - 44 mL/min/1.73m2 Severely decreased 15 - 29 mL/min/1.73m2 Kidney Failure < 15 mL/min/1.73m2 *Relative to young adult level Estimated glomerular filtration rate is determined by the 2020 CKD-EPI equation recommended by the National Kidney Foundation (A Unifying Approach to GFR Estimation: Recommendations of the NKF-ASK Task Force on Reassessing the Inclusion of Race in Diagnosing Kidney Disease, JASN 2020). The CKD-EPI equation should not be used for patients with unstable renal function and has not been validated in children and those over 70. Current interpretive data was last reviewed 2021. Blood 11/15/2024 1:02 AM CDT 11/15/2024 1:34 AM CDT us Slime Walsh MD LAB BLOOD ORDERABLES Final Result [facility] Department [place] [address] * (ABNORMAL) Differential, auto (11/15/2024 1:02 AM CDT) Pathologist [facility] Neutrophil abs 4.04 1.50 - 6.50 K/cumm Imm gran abs 0.02 0.00 - 0.10 K/cumm [facility] Lymphocyte abs 0.25(L) 0.80 - 3.30 K/cumm [facility] Monocyte abs 0.12(L) 0.20 - 0.80 K/cumm [facility] Eosinophil abs 0.25 0.00 - 0.50 K/cumm [facility] Basophil abs 0.02 0.00 - 0.10 K/cumm [facility] Neutrophil pct 86.0 % [facility] Comment: Interpretive Data Percent cell count reference ranges are not reported, since discordance with absolute values may lead to misinterpretation of CBC data. Current Interpretive Data was last revised on 2017. Imm gran pct 0.4 % [facility] Comment: Interpretive Data Percent cell count reference ranges are not reported, since discordance with absolute values may lead to misinterpretation of CBC data. Current Interpretive Data was last revised on 2017. Lymphocyte pct 5.3 % [facility] Comment: Interpretive Data Percent cell count reference ranges are not reported, since discordance with absolute values may lead to misinterpretation of CBC data. Current Interpretive Data was last revised on 2017. Monocyte pct 2.6 % [facility] Comment: Interpretive Data Percent cell count reference ranges are not reported, since discordance with absolute values may lead to misinterpretation of CBC data. Current Interpretive Data was last revised on 2017. Eosinophil pct 5.3 % [facility] Comment: Interpretive Data Percent cell count reference ranges are not reported, since discordance with absolute values may lead to misinterpretation of CBC data. Current Interpretive Data was last revised on 2017. Basophil pct 0.4 % [facility] Comment: Interpretive Data Percent cell count reference ranges are not reported, since discordance with absolute values may lead to misinterpretation of CBC data. Current Interpretive Data was last revised on 2017. Blood 11/15/2024 1:02 AM CDT 11/15/2024 1:34 AM CDT us Slime Walsh MD LAB BLOOD ORDERABLES Final Result [facility] Department [place] [address] * (ABNORMAL) CBC with auto differential (11/15/2024 1:02 AM CDT) WBC 4.70 3.80 - 9.90 K/cumm Hgb 11.0(L) 13.0 - 17.5 g/dL [facility] Hct 32.8(L) 38.9 - 50.3 % [facility] Plt 149(L) 150 - 400 K/cumm [facility] MPV 10.4 9.1 - 12.3 fL [facility] RBC 3.69(L) 4.30 - 5.80 M/cumm [facility] MCV 88.9 81.3 - 96.4 fL [facility] MCH 29.8 27.1 - 33.3 pg [facility] MCHC 33.5 32.3 - 35.7 g/dL [facility] RDW CV 15.5(H) 11.1 - 14.9 % [facility] RDW SD 49.1(H) 35.7 - 48.1 fL [facility] NRBC abs 0.00 0.00 - 0.01 K/cumm [facility] Blood 11/15/2024 1:02 AM CDT 11/15/2024 1:34 AM CDT Slime Walsh MD LAB BLOOD ORDERABLES Final Result [facility] Department [place] [address] * (ABNORMAL) Comprehensive metabolic panel (11/15/2024 1:02 AM CDT) Sodium 140 135 - 145 mmol/L Potassium, pl 3.8 3.3 - 4.9 mmol/L [facility] Chloride 104 97 - 110 mmol/L [facility] CO2 30 22 - 32 mmol/L [facility] Anion gap 6 2 - 15 mmol/L [facility] BUN 15 6 - 25 mg/dL [facility] Creatinine 0.94 0.80 - 1.30 mg/dL [facility] Glucose 106 70 - 199 mg/dL [facility] Comment: Interpretive Data Fasting glucose >/= 126 mg/dl is diagnostic for diabetes. Fasting is defined as no caloric intake for at least 8 hours. Fasting glucose between 100 mg/dl to 125 mg/dl is diagnostic of prediabetes. In a patient with classic symptoms of hyperglycemia or hyperglycemic crisis, a random glucose >/= 200 mg/dl is diagnostic for diabetes. In the absence of unequivocal hyperglycemia, results should be confirmed by repeat testing. The classification and Diagnosis of Diabetes Diabetes Care 202; 46: S19-S40. Current interpretive data was last revised 2022. Calcium 8.6 8.5 - 10.3 mg/dL [facility] Bilirubin, total 1.5(H) 0.1 - 1.2 mg/dL [facility] Protein, pl 5.0(L) 6.5 - 8.5 g/dL [facility] Albumin 2.9(L) 3.5 - 5.0 g/dL [facility] Alk phos 76 40 - 130 Units/L [facility] ALT 39 7 - 55 Units/L [facility] AST 22 10 - 50 Units/L [facility] Blood 11/15/2024 1:02 AM CDT 11/15/2024 1:34 AM CDT us Slime Walsh MD LAB BLOOD ORDERABLES Final Result [facility] Department [place] [address] * (ABNORMAL) Urinalysis reflex to microscopic (11/14/2024 6:10 AM CDT) Color, ur Straw Yellow Clarity, ur Clear Clear [facility] Specific gravity, ur 1.008 1.003 - 1.030 [facility] pH, urine 7.0 [facility] Comment: Interpretive Data U rine pH is affected by diet, medications, systemic acid-base disturbances, and renal tubular function. pH may affect urinary stone formation. For example, urine pH below 6.0 may help reduce the tendency for calcium phosphate stones and pH greater than 6.0 may reduce the tendency for uric acid stone formation. Source: [facility] Current Interpretive Data was last revised on 2017 Protein, ur ql Negative Negative [facility] Glucose, ur ql Negative Negative [facility] Ketones, ur Negative Negative [facility] Bilirubin, ur Negative Negative [facility] Blood, ur 2+(A) Negative [facility] Urobilinogen, ur <2.0 <2.0 mg/dL [facility] Nitrite, ur Negative Negative [facility] Leukocyte esterase, ur Negative Negative [facility] UA reflex comment Reflex to microscopic UA will be performed. [facility] Urine 11/14/2024 6:10 AM CDT 11/14/2024 6:16 AM CDT us Watson Mcduffie MD LAB URINE ORDERABLES Final Result Performing Organization Address City/[facility] Co de Phone Number [facility] Department [place] [address] * (ABNORMAL) Urinalysis, microscopic only (11/14/2024 6:10 AM CDT) WBC, ur 0-5 0 - 5 /HPF RBC, ur 6-10(A) 0 - 2 /HPF [facility] Urine 11/14/2024 6:10 AM CDT 11/14/2024 6:16 AM CDT us Watson Mcduffie MD LAB URINE ORDERABLES Final Result Performing Organization Address [facility] Co de Phone Number [facility] [place] [address] * eGFR (11/14/2024 3:12 AM CDT) eGFR 74 >=60 mL/min/1. 73 m2 Comment: Interpretive Data Reference Interval Normal >/= 90 mL/min/1.73m2 Mildly decreased* 60 - 89 mL/min/1.73m2 Mildly to moderately decreased 45 - 59 mL/min/1.73m2 Moderately to severely decreased 30 - 44 mL/min/1.73m2 Severely decreased 15 - 29 mL/min/1.73m2 Kidney Failure < 15 mL/min/1.73m2 *Relative to young adult level Estimated glomerular filtration rate is determined by the 2020 CKD-EPI equation recommended by the National Kidney Foundation (A Unifying Approach to GFR Estimation: Recommendations of the NKF-ASK Task Force on Reassessing the Inclusion of Race in Diagnosing Kidney Disease, JASN 2020). The CKD-EPI equation should not be used for patients with unstable renal function and has not been validated in children and those over 70. Current interpretive data was last reviewed 2021. Blood 11/14/2024 3:12 AM CDT 11/14/2024 3:39 AM CDT us Slime Walsh MD LAB BLOOD ORDERABLES Final Result [facility] Department [place] [address] * (ABNORMAL) Differential, auto (11/14/2024 3:12 AM CDT) Neutrophil abs 5.45 1.50 - 6.50 K/cumm Imm gran abs 0.04 0.00 - 0.10 K/cumm [facility] Lymphocyte abs 0.20(L) 0.80 - 3.30 K/cumm [facility] Monocyte abs 0.13(L) 0.20 - 0.80 K/cumm [facility] Eosinophil abs 0.10 0.00 - 0.50 K/cumm [facility] Basophil abs 0.03 0.00 - 0.10 K/cumm [facility] Neutrophil pct 91.5 % [facility] Comment: Interpretive Data Percent cell count reference ranges are not reported, since discordance with absolute values may lead to misinterpretation of CBC data. Current Interpretive Data was last revised on 2017. Imm gran pct 0.7 % [facility] Comment: Interpretive Data Percent cell count reference ranges are not reported, since discordance with absolute values may lead to misinterpretation of CBC data. Current Interpretive Data was last revised on 2017. Lymphocyte pct 3.4 % [facility] Comment: Interpretive Data Percent cell count reference ranges are not reported, since discordance with absolute values may lead to misinterpretation of CBC data. Current Interpretive Data was last revised on 2017. Monocyte pct 2.2 % [facility] Comment: Interpretive Data Percent cell count reference ranges are not reported, since discordance with absolute values may lead to misinterpretation of CBC data. Current Interpretive Data was last revised on 2017. Eosinophil pct 1.7 % [facility] Comment: Interpretive Data Percent cell count reference ranges are not reported, since discordance with absolute values may lead to misinterpretation of CBC data. Current Interpretive Data was last revised on 2017. Basophil pct 0.5 % [facility] Comment: Interpretive Data Percent cell count reference ranges are not reported, since discordance with absolute values may lead to misinterpretation of CBC data. Current Interpretive Data was last revised on 2017. Blood 11/14/2024 3:12 AM CDT 11/14/2024 3:39 AM CDT Slime Walsh MD LAB BLOOD ORDERABLES Final Result Performing Organization Address [facility] Co de Phone Number [facility] [place] [place] [address] * (ABNORMAL) CBC with auto differential (11/14/2024 3:12 AM CDT) WBC 5.95 3.80 - 9.90 K/cumm Hgb 11.4(L) 13.0 - 17.5 g/dL [facility] Hct 34.0(L) 38.9 - 50.3 % [facility] Plt 155 150 - 400 K/cumm [facility] MPV 10.1 9.1 - 12.3 fL [facility] RBC 3.76(L) 4.30 - 5.80 M/cumm [facility] MCV 90.4 81.3 - 96.4 fL [facility] MCH 30.3 27.1 - 33.3 pg [facility] MCHC 33.5 32.3 - 35.7 g/dL [facility] RDW CV 15.9(H) 11.1 - 14.9 % [facility] RDW SD 51.0(H) 35.7 - 48.1 fL [facility] NRBC abs 0.00 0.00 - 0.01 K/cumm [facility] Blood 11/14/2024 3:12 AM CDT 11/14/2024 3:39 AM CDT Slime Walsh MD LAB BLOOD ORDERABLES Final Result Performing Organization Address [facility]/ZIP Co de Phone Number [facility] [place] [place] [address] * (ABNORMAL) Bilirubin, direct (11/14/2024 3:12 AM CDT) Bilirubin, direct 0.5(H) 0.1 - 0.3 mg/dL Blood 11/14/2024 3:12 AM CDT 11/14/2024 3:39 AM CDT Slime Walsh MD LAB BLOOD ORDERABLES Final Result [facility] Department [place] [address] * (ABNORMAL) Comprehensive metabolic panel (11/14/2024 3:12 AM CDT) Pathologist [facility] Sodium 141 135 - 145 mmol/L Potassium, pl 4.1 3.3 - 4.9 mmol/L [facility] Chloride 103 97 - 110 mmol/L [facility] CO2 30 22 - 32 mmol/L [facility] Anion gap 8 2 - 15 mmol/L [facility] BUN 18 6 - 25 mg/dL [facility] Creatinine 1.03 0.80 - 1.30 mg/dL [facility] Glucose 110 70 - 199 mg/dL [facility] Comment: Interpretive Data Fasting glucose >/= 126 mg/dl is diagnostic for diabetes. Fasting is defined as no caloric intake for at least 8 hours. Fasting glucose between 100 mg/dl to 125 mg/dl is diagnostic of prediabetes. In a patient with classic symptoms of hyperglycemia or hyperglycemic crisis, a random glucose >/= 200 mg/dl is diagnostic for diabetes. In the absence of unequivocal hyperglycemia, results should be confirmed by repeat testing. The classification and Diagnosis of Diabetes Diabetes Care 2021; 46: S19-S40. Current interpretive data was last revised 2022. Calcium 8.7 8.5 - 10.3 mg/dL [facility] Bilirubin, total 1.5(H) 0.1 - 1.2 mg/dL [facility] Protein, pl 5.6(L) 6.5 - 8.5 g/dL [facility] Albumin 3.2(L) 3.5 - 5.0 g/dL [facility] Alk phos 87 40 - 130 Units/L [facility] ALT 50 7 - 55 Units/L [facility] AST 28 10 - 50 Units/L [facility] Blood 11/14/2024 3:12 AM CDT 11/14/2024 3:39 AM CDT us Slime Walsh MD LAB BLOOD ORDERABLES Final Result [facility] Department [place] [address] * RAD ONC ARIA SESSION SUMMARY (11/13/2024 2:26 PM CDT) Course Name [id number] [facility] Course Plan Date 10/01/2024 9:55 AM [facility] Elapsed Days 32 ARIA Treatment Start Date 10/12/2024 [facility] Treatment Site [email or web address]_ANU [id number] [facility] Dose Given To Date (cGy) 4,320 [facility] Session Dosage Given (cGy) 180 ARIA Plan ID PELVIS_ANU S ARIA Fractions Treated 24 [facility] Prescribed Dose Per Fraction (cGy) 180 [facility] Prescribed Total Dose (cGy) 5,400 [facility] 11/13/2024 2:26 PM CDT us Not In File Miscellaneous RADIATION ONCOLOGY ORD ERABLES Final Result Performing Organization Address City/[facility]/ZIP Co de Phone Number [facility] * eGFR (11/13/2024 3:48 AM CDT) eGFR 65 >=60 mL/min/1. 73 m2 Comment: Interpretive Data Reference Interval Normal >/= 90 mL/min/1.73m2 Mildly decreased* 60 - 89 mL/min/1.73m2 Mildly to moderately decreased 45 - 59 mL/min/1.73m2 Moderately to severely decreased 30 - 44 mL/min/1.73m2 Severely decreased 15 - 29 mL/min/1.73m2 Kidney Failure < 15 mL/min/1.73m2 *Relative to young adult level Estimated glomerular filtration rate is determined by the 2020 CKD-EPI equation recommended by the National Kidney Foundation (A Unifying Approach to GFR Estimation: Recommendations of the NKF-ASK Task Force on Reassessing the Inclusion of Race in Diagnosing Kidney Disease, JASN 202). The CKD-EPI equation should not be used for patients with unstable renal function and has not been validated in children and those over 70. Current interpretive data was last reviewed 2021. Blood 11/13/2024 3:48 AM CDT 11/13/2024 4:09 AM CDT us Slime Walsh MD LAB BLOOD ORDERABLES Final Result [facility] Department [place] [address] * (ABNORMAL) Differential, auto (11/13/2024 3:48 AM CDT) Neutrophil abs 6.14 1.50 - 6.50 K/cumm Imm gran abs 0.04 0.00 - 0.10 K/cumm [facility] Lymphocyte abs 0.23(L) 0.80 - 3.30 K/cumm [facility] Monocyte abs 0.19(L) 0.20 - 0.80 K/cumm [facility] Eosinophil abs 0.05 0.00 - 0.50 K/cumm [facility] Basophil abs 0.02 0.00 - 0.10 K/cumm [facility] Neutrophil pct 92.2 % [facility] Comment: Interpretive Data Percent cell count reference ranges are not reported, since discordance with absolute values may lead to misinterpretation of CBC data. Current Interpretive Data was last revised on 2017. Imm gran pct 0.6 % [facility] Comment: Interpretive Data Percent cell count reference ranges are not reported, since discordance with absolute values may lead to misinterpretation of CBC data. Current Interpretive Data was last revised on 2017. Lymphocyte pct 3.4 % [facility] Comment: Interpretive Data Percent cell count reference ranges are not reported, since discordance with absolute values may lead to misinterpretation of CBC data. Current Interpretive Data was last revised on 2017. Monocyte pct 2.8 % [facility] Comment: Interpretive Data Percent cell count reference ranges are not reported, since discordance with absolute values may lead to misinterpretation of CBC data. Current Interpretive Data was last revised on 2017. Eosinophil pct 0.7 % [facility] Comment: Interpretive Data Percent cell count reference ranges are not reported, since discordance with absolute values may lead to misinterpretation of CBC data. Current Interpretive Data was last revised on 2017. Basophil pct 0.3 % [facility] Comment: Interpretive Data Percent cell count reference ranges are not reported, since discordance with absolute values may lead to misinterpretation of CBC data. Current Interpretive Data was last revised on 2017. Blood 11/13/2024 3:48 AM CDT 11/13/2024 4:09 AM CDT Slime Walsh MD LAB BLOOD ORDERABLES Final Result [facility] Department [place] [address] * (ABNORMAL) CBC with auto differential (11/13/2024 3:48 AM CDT) WBC 6.67 3.80 - 9.90 K/cumm Hgb 11.0(L) 13.0 - 17.5 g/dL [facility] Hct 33.8(L) 38.9 - 50.3 % [facility] Plt 166 150 - 400 K/cumm [facility] MPV 10.3 9.1 - 12.3 fL [facility] RBC 3.72(L) 4.30 - 5.80 M/cumm [facility] MCV 90.9 81.3 - 96.4 fL [facility] MCH 29.6 27.1 - 33.3 pg [facility] MCHC 32.5 32.3 - 35.7 g/dL [facility] RDW CV 16.1(H) 11.1 - 14.9 % [facility] RDW SD 51.9(H) 35.7 - 48.1 fL [facility] NRBC abs 0.00 0.00 - 0.01 K/cumm [facility] Blood 11/13/2024 3:48 AM CDT 11/13/2024 4:09 AM CDT Silme Walsh MD LAB BLOOD ORDERABLES Final Result Performing Organization Address City/State/[facility] Co de Phone Number [facility] [place] [address] * Phosphorus (11/13/2024 3:48 AM CDT) Pathologist [facility] Phosphorus, pl 3.3 2.3 - 4.5 mg/dL Blood 11/13/2024 3:48 AM CDT 11/13/2024 4:09 AM CDT Slime Walsh MD LAB BLOOD ORDERABLES Final Result Performing Organization Address City/[facility] Co de Phone Number [facility] [place] [employer] [place] [address] * Magnesium (11/13/2024 3:48 AM CDT) Magnesium 1.7 1.4 - 2.5 mg/dL Blood 11/13/2024 3:48 AM CDT 11/13/2024 4:09 AM CDT Slime Walsh MD LAB BLOOD ORDERABLES Final Result Performing Organization Address City/[facility] Co de Phone Number [facility] [place] [address] * (ABNORMAL) Comprehensive metabolic panel (11/13/2024 3:48 AM CDT) Sodium 141 135 - 145 mmol/L Potassium, pl 4.6 3.3 - 4.9 mmol/L [facility] Chloride 109 97 - 110 mmol/L [facility] CO2 25 22 - 32 mmol/L [facility] Anion gap 7 2 - 15 mmol/L [facility] BUN 23 6 - 25 mg/dL [facility] Creatinine 1.15 0.80 - 1.30 mg/dL [facility] Glucose 100 70 - 199 mg/dL [facility] Comment: Interpretive Data Fasting glucose >/= 126 mg/dl is diagnostic for diabetes. Fasting is defined as no caloric intake for at least 8 hours. Fasting glucose between 100 mg/dl to 125 mg/dl is diagnostic of prediabetes. In a patient with classic symptoms of hyperglycemia or hyperglycemic crisis, a random glucose >/= 200 mg/dl is diagnostic for diabetes. In the absence of unequivocal hyperglycemia, results should be confirmed by repeat testing. The classification and Diagnosis of Diabetes Diabetes Care 202; 46: S19-S40. Current interpretive data was last revised 2022. Calcium 8.8 8.5 - 10.3 mg/dL [facility] Bilirubin, total 1.2 0.1 - 1.2 mg/dL [facility] Protein, pl 5.3(L) 6.5 - 8.5 g/dL [facility] Albumin 3.0(L) 3.5 - 5.0 g/dL [facility] Alk phos 80 40 - 130 Units/L [facility] ALT 55 7 - 55 Units/L [facility] Comment:Reviewed AST 48 10 - 50 Units/L [facility] Blood 11/13/2024 3:48 AM CDT 11/13/2024 4:09 AM CDT Slime Walsh MD LAB BLOOD ORDERABLES Final Result [facility] Department [place] [address] * Flexible Sigmoidoscopy (09/11/2024 10:21 AM CDT) Anatomical Region Laterality Modality Other Narrative Procedure Note Delvalle, Jeremy R., MD - 09/11/2024 10:21 AM CDT [facility] Patient Name: Reynold Godinez Procedure Date: 09/11/2024 10:21 AM Date of : 1945 Admit Type: Outpatient Age: 79 Gender: Male Attending MD: Jeremy Delvalle M.D. Room: [facility] 02 Note Status: Finalized Procedure: Flexible Sigmoidoscopy Indications: Personal history of malignant rectal neoplasm Referring MD: Self Referral Providers: Jeremy Delvalle M.D. Medicines: Propofol per Anesthesia Complications: No immediate complications. Estimated Blood Loss: Estimated blood loss: none. Procedure: Pre-Anesthesia Assessment: - After reviewing the risks and benefits, thepatient was deemed in satisfactory condition to undergo the procedure. The benefits, risks, and alternatives to theprocedure and sedation were discussed and informed consentwas obtained. The [id number] Endoscope was introduced through the anus and advanced to the the rectum. The flexible sigmoidoscopy was accomplished without difficulty. The quality of the bowel preparation was poor. Findings: The perianal exam findings include large fungating anal mass discrete from previous excision scar. A moderate amount of stool was found in the distal rectum, making visualization difficult. Impression: - Preparation of the colon was poor. - Large fungating anal mass discrete from previous excision scar found on perianal exam. - Stool in the distal rectum. - No specimens collected. Recommendation: - Await pathology results. Attending Participation: I was present and participated during the entire procedure, including non-fernandez portions. Electronically signed by Shon Delvalle Jeremy Delvalle M.D. 09/11/2024 10:51:43 AM Number of Addenda: 0 Note Initiated On: 09/11/2024 10:21 AM Recognized by the Citizen Of [place] [employer] Gastrointestinal Endoscopy for promoting quality in endoscopy us Jeremy Delvalle MD ENDOSCOPY PROCEDURES Final Res ult * Colonoscopy (10/18/2023 6:53 AM CDT) Anatomical Region Laterality Modality Other Narrative Procedure Note Jeremy Delvalle MD - 10/18/2023 6:53 AM CDT [facility] Patient Name: Reynold Godinez Procedure Date: 10/18/2023 6:53 AM Date of : 1945 Admit Type: Outpatient Age: 78 Gender: Male Attending MD: Jeremy Delvalle M.D. Room: [facility] 02 Note Status: Finalized Procedure: [...] The scope was passed under direct vision.The [id number] Colonoscope was introducedthrough the anus and advanced [...] On: 10/18/2023 6:53 AM Recognized by the Citizen Of [place] Society for Gastrointestinal Endoscopy for promoting quality [...] - GEN ERAL ORDERABLES Final Result [facility] [address] [employer] [place] [address] from Last 3 Months or Most Recently Relevant to Health Maintenance Insurance AETNA MEDICARE AETNA MEDICARE Advance Directives For more information, please contact: [phone] Documents on File Type Date 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 Use antibiotics, IV Fluids, and medical treatment unless specifically selected below: No intubation Discussed with the following attending physician : Dr Newton * LIMITED - No CPR Date Activated Date Inactivated Comments 11/09/2024 10:09 PM 11/17/2024 12:42 PM * LIMITED - No CPR Date Activated Date Inactivated Comments 10/12/2024 8:19 PM 10/18/2024 5:03 PM Question Answer Comments Provide aggressive medical m anagement before a full cardiopulmonary arrest occurs. Use antibiotics, IV Fluids, and medical treatment unless specifically selected below: No intubation * Full Code Date Activated Date Inactivated Comments 10/12/2024 5:28 PM 10/12/2024 8:19 PM * Full Code Date Activated Date Inactivated Comments 09/11/2024 9:28 AM 09/11/2024 3:27 PM Healthcare Agents on File Name Relationship Healthcare Agent [facility] Communication Marianna Fleming Daughter Health Care Agent Care Teams Jewel Staker Relationship Specialty Start Date End Date Cesar Sepulveda MD [address] [facility] [address] [place] [address] PCP - General Family Medicine 09/28/24 Jeremy Delvalle MD Surgeon Colon and Rectal Surgery 04/07/19 Virgilio Degroot MD [address] [facility] [address] [facility], [facility] [address] [place] [address] Instrumentation Designer Gastroenterology 09/24/19 Blaine Pringle MD [address] [facility] [address] [facility] [address] [place] [address] Consulting Physician Cardiology 07/09/24 Prakash Mejia NP [address] [place] [address] Nurse Practitioner Neurology 07/09/24 Jesus Alberto Arriola MD PhD [address] [facility], [facility] [address], [address] [place] [address] Consulting Physician Medical Oncology 09/24/24 Carlyle, MD Reynold [address] [facility] [address] [place] [address] Radiation Oncologist Radiation Oncology 10/01/24
--- OUTSIDE RECORDS SUMMARY | 2025-02-13 02:58 | XMS_ITS | Encounter Summary ---
Author Organization [facility] Address [facility] [place] [address] Care Team Providers Care Senior Facilities Manager Name Role Phone Chester Broussard MD Primary Care Provider [phone] Chester Eli MD Unavailable [phone] Johanny Chang NP Unavailable [phone] Evy Rivera MD Unavailable [phone] Wm [place] DO Primary Care Provider [phone] Encounter Details Date Type Department Care Team (Late st Contact Info) Description 06/28/2015 Abstract [facility] [address] [place] [address] Johanny Chang, BERT [address] [place], [place] [id number] Social History Tobacco Use Types Packs/Day Years [...] on filedocumented in this encounter Care Teams Senior Facilities Manager Relationship Specialty Start Date End Date Chester Broussard MD [address] [place] [phone] PCP - General FAMILY PRACTICE 12/15/15 05/22/20 Wm [place] DO [address] [address] PCP - General INTERNAL MEDICINE 05/23/20 Chester Eli MD [address] [place] [phone] CARDIOVASCULAR DISEASE 12/15/15 1 Johanny Chang NP [address] [place] [phone] Nurse Practitioner NURSE PRACTITIONER 11/05/17 05/22/20 Evy Rivera MD [address] [place] [phone] Consulting Physician CARDIOVASCULAR DISEASE 02/24/19 documented as of this encounter
--- OUTSIDE RECORDS SUMMARY | 2025-02-13 02:58 | XMS_ITS | Encounter Summary ---
Author Organization [facility] Healthcare Address [address] [place] [address] Care Team Providers Care Director Drug Safety Name Role Phone Jeremy Delvalle MD Unavailable [phone] Virgilio Degroot MD Unavailable Blaine Pringle MD Unavailable [phone] Prakash Mejia NP Unavailable [phone] Jesus Alberto Arriola MD PhD Unavailable [phone] Cesar Sepulveda MD Primary Care Provider Reynold Tadeo MD Unavailable Encounter Details Date Type Department Care Team (Late st Contact Info) Description 10/12/2024 Telephone [facility] Bed Planning [address] [place] [address] Lin Ferguson RN Social History Tobacco Use Types Packs/Day [...] on one occasion? Less than monthly 09/29/2024 PHQ-2 Answer Date Recorded PHQ-2 Total Score (If total score is 3 or more points, staff should administer the PHQ-9) 0 08/19/2024 Personal Safety Answer Date Recorded Have you ever been in or are you currently in a harmful physical or emotional relationship or is someone making you feel afraid or unsafe? 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 difficile suspected 11/15/2024 11/16/202411/16 11:24 AM CDT Norovirus suspected 11/15/2024 11/15/2024 11/16/19 11:00 PM CDT documented as of this encounter Care Teams Director Drug Safety Relationship Specialty Start Date End Date Cesar Seuplveda MD [address] [facility] [address] [place] [address] PCP - General Family Medicine 09/28/24 Jeremy Delvalle MD Surgeon Colon and Rectal Surgery 04/07/19 Virgilio Degroot MD [address] [facility] [place] [address] [facility], [facility] [address] [place] [address] Semiconductor Bonder Gastroenterology 09/24/19 Blaine Pringle MD [address] [facility] [address] [facility] [address] [place] [address] Consulting Physician Cardiology 07/09/24 Prakash Mejia NP [address] [place] [address] Nurse Practitioner Neurology 07/09/24 Jesus Alberto Arriola MD PhD [address] [facility], [facility] [address] [place] [address] Consulting Physician Medical Oncology 09/24/24 Carlyle, MD Reynold [address] [facility] [address] [place] [address] Radiation Oncologist Radiation Oncology 10/01/24 documented as of this encounter
--- OUTSIDE RECORDS SUMMARY | 2025-02-13 02:58 | XMS_ITS | Clinical Summary ---
Author Organization [facility] Address [address] [place] [address] Care Team Providers Care Managed Security Sales Consultant Name Role Phone Wm [place] DO Primary Care Provider [phone] Allergies Active Allergy Reactions Criticality Noted Date Comments Statins Myalgias 12/15/2015 Medications diltiazem 24 hr (CARDIZEM CD) 120 MG capsule Take 1 tablet by mouth daily. 10/26/2009 Active [place]-3 Fatty Acids (FISH OIL CONCENTRATE) 300 MG [...] [id number] HTN (hypertension) HLD (hyperlipidemia) Atrial fibrillation Family History Medical History Relation Comments Hypertension [...] Comments Blood Pressure 150/82 05/23/2020 9:05 AM TRANSFORMER SHOP SUPERVISOR Pulse 75 05/23/2020 9:05 AM TRANSFORMER SHOP SUPERVISOR Temperature 36.6 C (97.8 F) 09/21/2019 1:24 PM CDT Respiratory Rate 20 07/25/2019 10:24 AM CDT Oxygen Saturation 98% 05/23/2020 9:05 AM TRANSFORMER SHOP SUPERVISOR Inhaled Oxygen Concentration - - Weight 106.1 kg (234 lb) 05/23/2020 9:05 AM TRANSFORMER SHOP SUPERVISOR Height 177.8 cm (5' 10) 05/23/2020 9:05 AM TRANSFORMER SHOP SUPERVISOR Body Mass Index 33.58 05/23/2020 9:05 AM TRANSFORMER SHOP SUPERVISOR Plan of Treatment Health Maintenance Due Date Last Done Comments Hepatitis C 1963 Annual Medicare Wellness Visit 07/17/2011 Zoster Vaccines (2 of 3) 03/11/2013 01/14/2013 DTaP, Tdap and Td Vaccines (1 - Tdap) 10/20/2016 10/19/2016 RSV Immunization or 60+ Years (1 - 1-dose 75+ series) 2021 PHQ-2 (Physician [place]) 04/22/2024 COVID-19 Vaccine (1 - season) 2024 Influenza Adult (#1) 2025 01/04/2020, 01/02/2019, 02/04/2018, Additional history exists Pneumococcal Vaccine: 50+ Years Completed 12/06/2015, 03/21/2015, 02/01/2012 Colorectal Cancer Screening Colonoscopy (10 Years) Discontinued 10/18/2023 AAA SCREENING Completed 09/11/2024, 08/21, 02/05/2019 Hepatitis A Vaccines Aged Out No long er eligible based on patient's age to complete this topic Meningococcal B Vaccine Aged Out No l [...] By: Júnior Broderick MD, 02/05/2019 10:29 AM Madya Louis Rikki FLUE GAS ANALYST CT Final Result from Last 3 Months or Most Recently Relevant to Health Maintenance Insurance MED REPLACE [employer] MEDICARE [place] [id number] MED REPLACE [facility] MEDICARE [place] [id number] Advance Directives Documents on File Type Date Recorded 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
--- NOTE | 2025-02-13 04:12 | PC.NURSE ---
Pt up and ambulated with walker. Pt now c/o R hip pain. EDP notified.
[2025-02-13] MEDS: HYDROcodone/acetaminophen (*CRX) 5-325 MG TABLET 1 TAB PO (05:01)
== END 2025-02-13 05:40 | disposition home or self-care (01) ==
PROVIDERS: Emergency Provider Student in an Organized Health Care Education/Training Program; PCP Family Medicine Sports Medicine
DX: S70.01XA Contusion of right hip, initial encounter (principal); W18.30XA Fall on same level, unspecified, initial encounter; G30.9 Alzheimer's disease, unspecified; F02.80 Dementia in other diseases classified elsewhere, unspecified severity, without behavioral disturbance, psychotic disturbance, mood disturbance, and anxiety; N18.9 Chronic kidney disease, unspecified; I48.91 Unspecified atrial fibrillation; E78.5 Hyperlipidemia, unspecified; I12.9 Hypertensive chronic kidney disease with stage 1 through stage 4 chronic kidney disease, or unspecified chronic kidney disease; Z79.01 Long term (current) use of anticoagulants; K21.9 Gastro-esophageal reflux disease without esophagitis; Z87.891 Personal history of nicotine dependence
CPT/HCPCS: 70450; 72125; 73030; 73502; 99284; A9270